=== PATIENT | female | born 1950 | race Two or more races ===

== ENCOUNTER 2020-09-15 08:10 | Outpatient (REF) | payer MEDICARE, MEDICAID, SELFPAY ==
[2020-09-15 09:38] LABS: Alanine Aminotransferase 70 U/L (0-31); Albumin Level 4.3 g/dL (3.5-5.0); Alkaline Phosphatase 84 U/L (39-117); Anion Gap 14 (12-20); Aspartate Amino Transferase 51 U/L (5-31); Bilirubin Total 0.6 mg/dL (0.0-1.0); Blood Urea Nitrogen 13 mg/dL (9-16); Calcium 8.8 mg/dL (8.4-10.2); Carbon Dioxide 30 mmol/L (22-29); Chloride 99 mmol/L (96-108); Cholesterol 161 mg/dL; Estimated Glomerular Filt Rate 58; Glucose Fasting 161 mg/dL (60-99); HDL Cholesterol 39 mg/dL; LDL Cholesterol Calculated 77 mg/dl; Sodium 139 mmol/L (135-145); Triglycerides 225 mg/dL
[2020-09-15 09:59] LABS: Free T4 (Free Thyroxine) 1.02 ng/dL (0.71-1.85); TSH reflex Free T4 5.57 mIU/mL (0.32-4.0)
[2020-09-15 10:50] LABS: Creatinine Urine 149.93 mg/dL; Microalbum/Creatinine Ratio Ur 12.6 ug/mg cr
== END 2020-09-15 08:11 | disposition home or self-care (01) ==
LOC: HO.LAB 08:10
PROVIDERS: PCP Internal Medicine; Visit Provider Internal Medicine
DX: E78.00 Pure hypercholesterolemia, unspecified (principal); E11.9 Type 2 diabetes mellitus without complications; E03.9 Hypothyroidism, unspecified
CPT/HCPCS: 80053; 80061; 82043; 84439; 84443

== ENCOUNTER 2021-01-30 07:47 | Outpatient (REF) | payer MEDICARE, MEDICAID, SELFPAY ==
[2021-01-30 09:20] LABS: Alanine Aminotransferase 42 U/L (0-31); Albumin Level 4.3 g/dL (3.5-5.0); Alkaline Phosphatase 75 U/L (39-117); Anion Gap 13 (12-20); Aspartate Amino Transferase 33 U/L (5-31); Bilirubin Total 0.3 mg/dL (0.0-1.0); Blood Urea Nitrogen 15 mg/dL (9-16); Calcium 9.6 mg/dL (8.4-10.2); Carbon Dioxide 31 mmol/L (22-29); Chloride 101 mmol/L (96-108); Cholesterol 158 mg/dL; Estimated Glomerular Filt Rate 47; Glucose Fasting 152 mg/dL (60-99); HDL Cholesterol 40 mg/dL; LDL Cholesterol Calculated 76 mg/dl; Potassium 4.9 mmol/L (3.3-5.1); Sodium 140 mmol/L (135-145); Total Protein 7.1 g/dL (6.5-8.0); Triglycerides 213 mg/dL
[2021-01-30 09:34] LABS: Creatinine Urine 134.72 mg/dL; Microalbum/Creatinine Ratio Ur 10.3 ug/mg cr
[2021-02-03 07:22] LABS: Vitamin D 25-OH, D2 <4 ng/mL; Vitamin D 25-OH, D3 28 ng/mL; Vitamin D 25-OH, Total 28 ng/mL (30-100)
== END 2021-01-30 07:48 | disposition home or self-care (01) ==
LOC: HO.LAB 07:47
PROVIDERS: PCP Internal Medicine; Visit Provider Internal Medicine
DX: E11.9 Type 2 diabetes mellitus without complications (principal); E78.5 Hyperlipidemia, unspecified; E55.9 Vitamin D deficiency, unspecified
CPT/HCPCS: 36415; 80053; 80061; 82043; 82306

== ENCOUNTER 2021-03-14 09:22 | Outpatient (REF) | payer MEDICARE, MEDICAID, SELFPAY ==
--- NOTE | ~2021-03-14 | US_ITS ---
EXAMINATION: US THYROID CLINICAL INFORMATION: Thyroid nodule. COMPARISON: Thyroid ultrasound 05/21/2019 and 01/22/2019. TECHNIQUE: Linear transducer roman-scale and color Doppler examination with attention to the region of the thyroid. FINDINGS: SIZE: Measurements of the thyroid lobes and nodules are given in sagittal, anteroposterior and transverse dimensions respectively. Right Thyroid Lobe: 3.7 x 1.0 x 1.3 cm, volume 2.5 mL. Previously 4.1 x 1.1 x 1.2 cm, volume 2.9 mL. Parenchyma: The gland echotexture is homogeneous. Thyroid vascularity is normal. Left Thyroid Lobe: 4.0 x 1.0 x 1.0 cm, volume 2.0 mL. Previously 3.9 x 1.1 x 1.2 cm, volume 2.5 mL. Parenchyma: The gland echotexture is homogeneous. Thyroid vascularity is normal. Isthmus: 0.1 cm in maximum AP dimension. Previously 0.2 cm. No focal thyroid nodule is seen. NODES: There are bilateral lymph nodes adjacent to the submandibular glands. There are 2 on the right measure 1.4 and 1.5 cm in transverse dimension and one on the left and measures 1 cm in transverse dimension. These demonstrate normal ultrasound morphology and flow. These were not appreciated on previous exam. ADDITIONAL FINDING: There is a 0.8 x 0.3 x 0.6 cm hyperechoic lesion in the soft tissues inferior to the thyroid gland. This measured 0.7 x 0.4 x 0.6 cm on previous exam and does not appear appreciably changed. US/US thyroid IMPRESSION: Normal-appearing thyroid gland. Stable small hyperechoic lesion in the soft tissues inferior to the left lobe of the thyroid gland from previous exams. Bilateral level 2 cervical lymphadenopathy, right greater than left. ACR TI-RADS RECOMMENDATION REFERENCE: Ultrasound-guided fine-needle aspiration, followup ultrasound, no further follow up. * TR1 (0 point) and TR 2 (2 points): No FNA or follow up * TR3 (3 points): FNA if more than or equal to 2.5 cm in maximum dimension, followup ultrasound in 1, 3 and 5 years if 1.5 to 2.4 cm in maximum dimension. * TR4 (4-6 points): FNA if more than or equal to 1.5 cm in maximum dimension, followup ultrasound in 1, 2, 3 and 5 years if 1 to 1.4 cm in maximum dimension. * TR5 (more than or equal to 7 points): FNA if more than or equal to 1 cm in maximum dimension, followup ultrasound every year for 5 years if 0.5 to 0.9 cm in maximum dimension. * TR3, TR4 or TR5 nodules that are below the size threshold for follow up receive no follow up.
== END 2021-03-14 09:23 | disposition home or self-care (01) ==
LOC: HO.US 09:22
PROVIDERS: PCP Internal Medicine; Visit Provider Internal Medicine Endocrinology, Diabetes & Metabolism
DX: E04.1 Nontoxic single thyroid nodule (principal)
CPT/HCPCS: 76536

== ENCOUNTER 2021-03-23 08:45 | Outpatient (REF) | payer MEDICARE, MEDICAID, SELFPAY ==
--- NOTE | ~2021-03-23 | MM_ITS ---
EXAMINATION: MM SCREENING DIGITAL BREAST TOMOSYNTHESIS, BILATERAL CLINICAL INFORMATION: Screening. Asymptomatic. The lifetime risk of breast cancer based on the Tyrer-Cuzick Model is 4.2%. COMPARISON: Mammography: January 01, 2020 and studies dating back to June 10, 2013 TECHNIQUE: Digital breast tomosynthesis is performed in both the craniocaudal and mediolateral oblique views along with computer-aided detection (CAD). Synthesized 2D images are generated from the tomosynthesis. FINDINGS: There are scattered areas of fibroglandular density (ACR BI-RADS breast composition Category b). There are no new significant masses, abnormal calcifications, or other abnormalities. Stable region of architectural distortion seen within the upper outer aspect of the left breast. MM/MM tomosynthesis screening BI IMPRESSION: There are no significant changes from prior study. ASSESSMENT: BI-RADS 2: Benign RECOMMENDATION: Routine annual mammography screening. This patient's information was entered into a reminder system with a target due date for their next mammogram.
== END 2021-03-23 08:46 | disposition home or self-care (01) ==
LOC: HO.MAMMO 08:45
PROVIDERS: PCP Internal Medicine; Visit Provider Internal Medicine
DX: Z12.31 Encounter for screening mammogram for malignant neoplasm of breast (principal)
CPT/HCPCS: 77063; 77067

== ENCOUNTER → 2021-03-24 07:54 | Outpatient (BNVA) | payer MEDICARE, MEDICAID, SELFPAY | PROVIDERS: PCP Internal Medicine; Visit Provider Internal Medicine Endocrinology, Diabetes & Metabolism | DX: E03.9 Hypothyroidism, unspecified (principal); E04.1 Nontoxic single thyroid nodule | CPT/HCPCS: 99212 ==

== ENCOUNTER 2021-03-24 08:25 | Outpatient (REF) | payer MEDICARE, MEDICAID, SELFPAY ==
[2021-03-24 11:02] LABS: Free T4 (Free Thyroxine) 0.89 ng/dL (0.71-1.85); Thyroid Stimulating Hormone 3.21 uIU/mL (0.32-4.0)
== END 2021-03-24 08:26 | disposition home or self-care (01) ==
LOC: HO.10HDL 08:25
PROVIDERS: Visit Provider Internal Medicine Endocrinology, Diabetes & Metabolism
DX: E03.9 Hypothyroidism, unspecified (principal); E04.1 Nontoxic single thyroid nodule
CPT/HCPCS: 36415; 84439; 84443

== ENCOUNTER 2021-05-11 07:51 | Outpatient (REF) | payer MEDICARE, MEDICAID, SELFPAY ==
[2021-05-11 08:42] LABS: Alanine Aminotransferase 40 U/L (0-31); Albumin Level 4.6 g/dL (3.5-5.0); Alkaline Phosphatase 69 U/L (39-117); Anion Gap 14 (12-20); Aspartate Amino Transferase 33 U/L (5-31); Bilirubin Total 0.7 mg/dL (0.0-1.0); Blood Urea Nitrogen 14 mg/dL (9-16); Calcium 9.8 mg/dL (8.4-10.2); Carbon Dioxide 29 mmol/L (22-29); Chloride 100 mmol/L (96-108); Cholesterol 149 mg/dL; Estimated Glomerular Filt Rate 51; Glucose Fasting 155 mg/dL (60-99); HDL Cholesterol 39 mg/dL; LDL Cholesterol Calculated 77 mg/dl; Potassium 4.1 mmol/L (3.3-5.1); Sodium 139 mmol/L (135-145); Total Protein 7.4 g/dL (6.5-8.0); Triglycerides 167 mg/dL
[2021-05-11 09:04] LABS: Free T4 (Free Thyroxine) 0.87 ng/dL (0.71-1.85); Thyroid Stimulating Hormone 6.39 uIU/mL (0.32-4.0)
[2021-05-11 09:48] LABS: Creatinine Urine 438.85 mg/dL; Microalbum/Creatinine Ratio Ur 14.8 ug/mg cr
[2021-05-15 13:37] LABS: Vitamin D 25-OH, D2 <4 ng/mL; Vitamin D 25-OH, D3 31 ng/mL; Vitamin D 25-OH, Total 31 ng/mL (30-100)
== END 2021-05-11 07:52 | disposition home or self-care (01) ==
LOC: HO.LAB 07:51
PROVIDERS: PCP Internal Medicine; Visit Provider Internal Medicine
DX: E11.65 Type 2 diabetes mellitus with hyperglycemia (principal); E55.9 Vitamin D deficiency, unspecified; R79.89 Other specified abnormal findings of blood chemistry; E78.5 Hyperlipidemia, unspecified
CPT/HCPCS: 36415; 80053; 80061; 82043; 82306; 84439; 84443

== ENCOUNTER 2021-06-14 07:40 | Outpatient (REF) | payer MEDICARE, MEDICAID, SELFPAY ==
[2021-06-15 09:02] LABS: BV Int Neg Control Negative (Negative); BV Int Pos Control Positive (Positive)
== END 2021-06-14 07:41 | disposition home or self-care (01) ==
LOC: HO.LAB 07:40
PROVIDERS: PCP Internal Medicine; Visit Provider Advanced Practice Midwife
DX: Z01.419 Encounter for gynecological examination (general) (routine) without abnormal findings (principal); N89.8 Other specified noninflammatory disorders of vagina
CPT/HCPCS: 87480; 87510; 87660

== ENCOUNTER 2021-06-23 10:47 | Outpatient (REF) | payer MEDICARE, MEDICAID, SELFPAY ==
--- NOTE | ~2021-06-23 | MM_ITS ---
EXAMINATION: BONE DENSITOMETRY CLINICAL INDICATION: Asymptomatic menopausal state. COMPARISON: Baseline BD dated 06/10/2018. TECHNIQUE: Using a [employer] DXA System (software version: 13.1) manufactured by [employer], dual-energy x-ray absorptiometry was performed of the lumbar spine and left hip. The images are of good technical quality. Summary results are attached. FINDINGS: AP SPINE L1-L4: Current: BMD 0.900 g/cm2, Z-score -0.5, T-score -2.3, osteopenia, 0.1% decrease from baseline (<5% change is not significant). Baseline: BMD 0.901 g/cm2. LEFT FEMUR, NECK: Current: BMD 0.786 g/cm2, Z-score 0.0, T-score -1.8, osteopenia. Baseline: BMD 0.773 g/cm2. LEFT FEMUR, TOTAL: Current: BMD 0.975 g/cm2, Z-score 1.3, T-score -0.3, normal, 3.0% increase from baseline (<5% change is not significant). Baseline: BMD 0.947 g/cm2. IDENTIFIED RISK FACTORS: Menopause. HISTORY OF FRACTURE: None listed. MEDICATIONS: Calcium supplements or multivitamin, vitamin D. MM/XR DEXA axial skeleton IMPRESSION: 1. DIAGNOSIS: Osteopenia based on the lowest T-score value of -2.3 in the lumbar spine applying World Health Organization criteria. 2. 10-YEAR FRACTURE RISK PREDICTION, FRAX: Major osteoporotic fracture (clinical spine, forearm, hip or shoulder) 6.3%. Hip fracture 1.1%. 3. Treatment Recommendations: NOF guidelines recommend consideration for treatment in postmenopausal women and men age 50 and older presenting with the following: -A hip or vertebral (clinical or morphometric) fracture. -T-score less than or equal to -2.5 at the femoral neck or spine after appropriate evaluation to exclude secondary causes. -Low bone mass at the hip or spine and a 10-year fracture probability by FRAX of greater than or equal to 3% for hip fracture or greater than or equal to 20% for major osteoporotic fracture based on the [place] adapted WHO algorithm. 4. Other Recommendations: All treatment decisions require clinical judgment and consideration of individual patient factors, including patient preferences, comorbidities, previous drug use, risk factors not captured in the FRAX model (e.g. frailty, falls, vitamin D deficiency, increased bone turnover, interval significant decline in bone density) and possible under or overestimation of fracture risk by FRAX. Additional medical evaluation for secondary cause of low bone mineral density may be appropriate. FUTURE SCAN RECOMMENDATION: People with diagnosed cases of osteoporosis or at high risk for fracture should have regular bone mineral density tests. For patients eligible for Medicare, routine testing is allowed once every 2 years. The testing frequency can be increased to one year for patients who have rapidly progressing disease, those who are receiving or discontinuing medical therapy to restore bone mass, or have additional risk factors.
== END 2021-06-23 10:48 | disposition home or self-care (01) ==
LOC: HO.MAMMO 10:47
PROVIDERS: Visit Provider Nurse Practitioner Family
DX: Z78.0 Asymptomatic menopausal state (principal)
CPT/HCPCS: 77080

== ENCOUNTER 2021-09-14 08:40 | Outpatient (REF) | payer MEDICARE, MEDICAID, SELFPAY ==
[2021-09-14 10:39] LABS: Alanine Aminotransferase 42 U/L (0-31); Albumin Level 4.5 g/dL (3.5-5.0); Alkaline Phosphatase 58 U/L (39-117); Anion Gap 13 (12-20); Aspartate Amino Transferase 32 U/L (5-31); Bilirubin Total 0.4 mg/dL (0.0-1.0); Blood Urea Nitrogen 13 mg/dL (9-16); Calcium 9.5 mg/dL (8.4-10.2); Carbon Dioxide 30 mmol/L (22-29); Chloride 102 mmol/L (96-108); Cholesterol 156 mg/dL; Estimated Glomerular Filt Rate 53; Glucose Fasting 118 mg/dL (60-99); HDL Cholesterol 39 mg/dL; LDL Cholesterol Calculated 79 mg/dl; Potassium 4.4 mmol/L (3.3-5.1); Sodium 141 mmol/L (135-145); Total Protein 7.4 g/dL (6.5-8.0); Triglycerides 190 mg/dL
[2021-09-14 10:51] LABS: Creatinine Urine 119.24 mg/dL; Microalbum/Creatinine Ratio Ur 11.7 ug/mg cr
[2021-09-14 11:01] LABS: Free T4 (Free Thyroxine) 0.89 ng/dL (0.71-1.85); Thyroid Stimulating Hormone 4.71 uIU/mL (0.32-4.0)
[2021-09-15 18:01] LABS: Thyroglobulin Antibodies <1 IU/mL (< or = 1); Thyroid Peroxidase Antibodies <1 IU/mL (<9)
[2021-09-21 14:16] LABS: Vitamin D 25-OH, D2 <4 ng/mL; Vitamin D 25-OH, D3 24 ng/mL; Vitamin D 25-OH, Total 24 ng/mL (30-100)
== END 2021-09-14 08:41 | disposition home or self-care (01) ==
LOC: HO.LAB 08:40
PROVIDERS: Visit Provider Internal Medicine
DX: E11.65 Type 2 diabetes mellitus with hyperglycemia (principal); E03.9 Hypothyroidism, unspecified; E55.9 Vitamin D deficiency, unspecified; E78.5 Hyperlipidemia, unspecified
CPT/HCPCS: 36415; 80053; 80061; 82043; 82306; 84439; 84443; 86376; 86800

== ENCOUNTER 2022-01-19 07:51 | Outpatient (REF) | payer MEDICARE, MEDICAID, SELFPAY ==
[2022-01-19 09:04] LABS: Alanine Aminotransferase 32 U/L (0-31); Albumin Level 4.5 g/dL (3.5-5.0); Alkaline Phosphatase 60 U/L (39-117); Anion Gap 12 (12-20); Aspartate Amino Transferase 25 U/L (5-31); Bilirubin Total 0.6 mg/dL (0.0-1.0); Blood Urea Nitrogen 18 mg/dL (9-16); Calcium 9.6 mg/dL (8.4-10.2); Carbon Dioxide 31 mmol/L (22-29); Chloride 103 mmol/L (96-108); Cholesterol 149 mg/dL; Estimated Glomerular Filt Rate 57; Glucose Fasting 123 mg/dL (60-99); HDL Cholesterol 39 mg/dL; LDL Cholesterol Calculated 73 mg/dl; Potassium 4.5 mmol/L (3.3-5.1); Sodium 141 mmol/L (135-145); Total Protein 7.3 g/dL (6.5-8.0); Triglycerides 189 mg/dL
[2022-01-19 09:25] LABS: Free T4 (Free Thyroxine) 0.94 ng/dL (0.71-1.85); Thyroid Stimulating Hormone 6.09 uIU/mL (0.32-4.0)
[2022-01-19 09:50] LABS: Microalbum/Creatinine Ratio Ur 15.5 ug/mg cr
[2022-01-25 12:26] LABS: Vitamin D 25-OH, D2 <4 ng/mL; Vitamin D 25-OH, D3 22 ng/mL; Vitamin D 25-OH, Total 22 ng/mL (30-100)
== END 2022-01-19 07:52 | disposition home or self-care (01) ==
LOC: HO.LAB 07:51
PROVIDERS: PCP Internal Medicine; Visit Provider Internal Medicine
DX: R79.89 Other specified abnormal findings of blood chemistry (principal); E11.65 Type 2 diabetes mellitus with hyperglycemia; E55.9 Vitamin D deficiency, unspecified; E78.5 Hyperlipidemia, unspecified
CPT/HCPCS: 36415; 80053; 80061; 82043; 82306; 84439; 84443

== ENCOUNTER 2022-03-27 09:27 | Outpatient (REF) | payer MEDICARE, MEDICAID, SELFPAY ==
--- NOTE | ~2022-03-27 | MM_ITS ---
EXAMINATION: MM SCREENING DIGITAL BREAST TOMOSYNTHESIS, BILATERAL CLINICAL INFORMATION: Screening. Asymptomatic. The lifetime risk of breast cancer based on the Tyrer-Cuzick Model is 4%. COMPARISON: Mammography: 03/23/2021, 01/01/2020, 11/12/2018, 10/24/2017 TECHNIQUE: Digital breast tomosynthesis is performed in both the craniocaudal and mediolateral oblique views along with computer-aided detection (CAD). Synthesized 2D images are generated from the tomosynthesis. FINDINGS: There are scattered areas of fibroglandular density (ACR BI-RADS breast composition Category b). There are no significant masses, abnormal calcifications, or other abnormalities. Parenchymal pattern is similar to prior studies. Small asymmetry posterior central 9:00 right breast is stable. There is no developing density or architectural abnormality in either breast. The axilla are unremarkable. MM/MM tomosynthesis screening BI IMPRESSION: No mammographic evidence of malignancy. ASSESSMENT: BI-RADS 2: Benign RECOMMENDATION: Routine annual mammography screening. This patient's information was entered into a reminder system with a target due date for their next mammogram.
== END 2022-03-27 09:28 | disposition home or self-care (01) ==
LOC: HO.MAMMO 09:27
PROVIDERS: PCP Internal Medicine; Visit Provider Internal Medicine
DX: Z12.31 Encounter for screening mammogram for malignant neoplasm of breast (principal)
CPT/HCPCS: 77063; 77067

== ENCOUNTER 2022-04-30 07:48 | Outpatient (REF) | payer MEDICARE, MEDICAID, SELFPAY ==
[2022-04-30 09:19] LABS: Free T4 (Free Thyroxine) 0.87 ng/dL (0.71-1.85); Thyroid Stimulating Hormone 3.38 uIU/mL (0.32-4.0)
== END 2022-04-30 07:49 | disposition home or self-care (01) ==
LOC: HO.LAB 07:48
PROVIDERS: PCP Internal Medicine; Visit Provider Internal Medicine
DX: E03.9 Hypothyroidism, unspecified (principal)
CPT/HCPCS: 36415; 84439; 84443

== ENCOUNTER 2022-09-17 07:58 | Outpatient (REF) | payer MEDICARE, MEDICAID, SELFPAY ==
[2022-09-17 09:01] LABS: Alanine Aminotransferase 33 U/L (0-31); Albumin Level 4.6 g/dL (3.5-5.0); Alkaline Phosphatase 65 U/L (39-117); Anion Gap 18 (12-20); Aspartate Amino Transferase 24 U/L (5-31); Bilirubin Total 0.5 mg/dL (0.0-1.0); Blood Urea Nitrogen 12 mg/dL (9-16); Calcium 9.2 mg/dL (8.4-10.2); Carbon Dioxide 26 mmol/L (22-29); Chloride 98 mmol/L (96-108); Cholesterol 165 mg/dL; Estimated Glomerular Filt Rate 58; Glucose Fasting 150 mg/dL (60-99); HDL Cholesterol 43 mg/dL; LDL Cholesterol Calculated 91 mg/dl; Potassium 4.3 mmol/L (3.3-5.1); Sodium 138 mmol/L (135-145); Total Protein 7.5 g/dL (6.5-8.0); Triglycerides 157 mg/dL
[2022-09-17 09:23] LABS: Thyroid Stimulating Hormone 8.24 uIU/mL (0.32-4.0); Vitamin D 25-OH Total 25.5 ng/mL (>30)
[2022-09-17 10:06] LABS: Microalbum/Creatinine Ratio Ur 19.9 ug/mg cr
== END 2022-09-17 07:59 | disposition home or self-care (01) ==
LOC: HO.LAB 07:58
PROVIDERS: PCP Internal Medicine; Visit Provider Internal Medicine
DX: E11.65 Type 2 diabetes mellitus with hyperglycemia (principal); E55.9 Vitamin D deficiency, unspecified; E03.9 Hypothyroidism, unspecified; E78.5 Hyperlipidemia, unspecified
CPT/HCPCS: 36415; 80053; 80061; 82043; 82306; 84443

== ENCOUNTER 2023-01-10 08:01 | Outpatient (REF) | payer MEDICARE, MEDICAID, SELFPAY ==
[2023-01-10 09:30] LABS: Alanine Aminotransferase 30 U/L (0-31); Albumin Level 4.5 g/dL (3.5-5.0); Alkaline Phosphatase 58 U/L (39-117); Anion Gap 16 (12-20); Aspartate Amino Transferase 23 U/L (5-31); Bilirubin Total 0.6 mg/dL (0.0-1.0); Blood Urea Nitrogen 17 mg/dL (9-16); Calcium 9.3 mg/dL (8.4-10.2); Carbon Dioxide 27 mmol/L (22-29); Chloride 104 mmol/L (96-108); Cholesterol 165 mg/dL; Estimated Glomerular Filt Rate 55; Glucose Fasting 134 mg/dL (60-99); HDL Cholesterol 41 mg/dL; LDL Cholesterol Calculated 82 mg/dl; Potassium 4.4 mmol/L (3.3-5.1); Sodium 143 mmol/L (135-145); Total Protein 7.4 g/dL (6.5-8.0); Triglycerides 211 mg/dL
[2023-01-10 10:02] LABS: Free T4 (Free Thyroxine) 0.82 ng/dL (0.71-1.85); Thyroid Stimulating Hormone 4.57 uIU/mL (0.32-4.0); Vitamin D 25-OH Total 22.8 ng/mL (>30)
[2023-01-10 11:11] LABS: Microalbum/Creatinine Ratio Ur 30.4 ug/mg cr
[2023-01-11 18:09] LABS: Thyroglobulin Antibodies <1 IU/mL (< or = 1); Thyroid Peroxidase Antibodies <1 IU/mL (<9)
== END 2023-01-10 08:02 | disposition home or self-care (01) ==
LOC: HO.LAB 08:01
PROVIDERS: PCP Internal Medicine; Visit Provider Internal Medicine
DX: E11.65 Type 2 diabetes mellitus with hyperglycemia (principal); E03.9 Hypothyroidism, unspecified; E55.9 Vitamin D deficiency, unspecified; E78.5 Hyperlipidemia, unspecified
CPT/HCPCS: 36415; 80053; 80061; 82043; 82306; 84439; 84443; 86376; 86800

== ENCOUNTER 2023-04-12 08:03 | Outpatient (REF) | payer MEDICARE, MEDICAID, SELFPAY ==
--- NOTE | ~2023-04-12 | MM_ITS ---
EXAMINATION: MM SCREENING DIGITAL BREAST TOMOSYNTHESIS, BILATERAL CLINICAL INFORMATION: Screening. Asymptomatic. The lifetime risk of breast cancer based on the Tyrer-Cuzick Model is 4%. COMPARISON: Mammography: 03/27/2022, 03/23/2021, 01/01/2020 TECHNIQUE: Digital breast tomosynthesis is performed in both the craniocaudal and mediolateral oblique views along with computer-aided detection (CAD). Synthesized 2D images are generated from the tomosynthesis. Additional right CC view is provided. FINDINGS: There are scattered areas of fibroglandular density (ACR BI-RADS breast composition Category b). There are no significant masses, abnormal calcifications, or other abnormalities. Parenchymal pattern is similar to prior studies. There is no developing density or architectural abnormality. Incidental dermal calcifications posterior 7:00 left breast. The axilla and skin contours are unremarkable. No significant changes from prior studies. MM/MM tomosynthesis screening BI IMPRESSION: No mammographic evidence of malignancy. ASSESSMENT: BI-RADS 1: Negative RECOMMENDATION: Routine annual mammography screening. This patient's information was entered into a reminder system with a target due date for their next mammogram.
== END 2023-04-12 08:04 | disposition home or self-care (01) ==
LOC: HO.MAMMO 08:03
PROVIDERS: PCP Internal Medicine; Visit Provider Internal Medicine
DX: Z12.31 Encounter for screening mammogram for malignant neoplasm of breast (principal)
CPT/HCPCS: 77063; 77067

== ENCOUNTER 2023-05-20 07:55 | Outpatient (REF) | payer MEDICARE, MEDICAID, SELFPAY ==
[2023-05-22 18:18] LABS: Thyroglobulin Antibodies <1 IU/mL (< or = 1)
[2023-05-23 19:39] LABS: Thyroid Peroxidase Antibodies <1 IU/mL (<9)
== END 2023-05-20 07:56 | disposition home or self-care (01) ==
LOC: HO.LAB 07:55
PROVIDERS: PCP Internal Medicine; Visit Provider Internal Medicine
DX: E11.65 Type 2 diabetes mellitus with hyperglycemia (principal); E03.9 Hypothyroidism, unspecified; E78.5 Hyperlipidemia, unspecified; E55.9 Vitamin D deficiency, unspecified
CPT/HCPCS: 36415; 80053; 80061; 82043; 82306; 84439; 84443; 86376; 86800

== ENCOUNTER 2023-06-04 08:00 | Outpatient (AMB) | payer MEDICARE, MEDICAID, SELFPAY ==
--- NOTE | 2023-06-04 08:05 | A.OFFPC_ITS ---
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: No Accompanied by: Spouse Allergies cetirizine Allergy (Intermediate, Verified 06/04/23 08:17) inadequate response montelukast Allergy (Intermediate, Verified 06/04/23 08:17) inadequate response Penicillins [PENICILLINS] Allergy (Intermediate, Verified 06/04/23 08:17) ITCHY HIVES levothyroxine Adverse Reaction (Intermediate, Verified 06/04/23 08:17) dizziness, weakness Tussin (?) Adverse Reaction (Intermediate, Uncoded 06/04/23 08:17) rash,urticaria Medication List - Last Reconciled 06/04/23 by Keke Ivy MD blood sugar diagnostic (FreeStyle Lite Strips) Use 1 test strip once a day calcium carbonate 600 mg PO BID 90 days cholecalciferol (vitamin D3) 25 mcg PO DAILY 90 days diclofenac sodium 1% 2 grams topical QID PRN 30 days fluoxetine 20 mg PO DAILY 90 days fluticasone propionate 0.05% 1 appl topical DAILY 30 days metformin 850 mg PO BID 90 days pravastatin 40 mg PO BEDTIME 90 days risperidone 4 mg PO DAILY 90 days trazodone 200 mg (2 x 100 mg) PO BEDTIME Tobacco use date assessed: 01/24/23 Fall risk assessment: No Falls in past year Last assessed Fall Risk: 06/04/23 Dental Screening Dental Screen Date: 06/04/23 Did you have a dental visit in the last 12 months?: Yes Did you have a dental problem in the last 6 months where you did not have access to dental care?: No Was dental information given to patient?: Patient has dentist HPI HPI Comments History of Present Illness Details This is a 72-year-old female with diabetes mellitus type 2, pure hypercholesterolemia, mild recurrent major depression, hypothyroid and low vitamin-D that comes today accompanied by complaining of some occasional cognitive impairment and I will refer her to Neurology. A1c within goal. LDL within goal. Depression stable with SSRIs. TSH is elevated and I will restart her on Synthroid. Levothyroxine cause dizziness and weakness and this is why I will try branded Synthroid. Vitamin-D normal on supplements. No chest pain or shortness of breath. [facility] Medical History (Updated 06/04/23 @ 08:26 by Keke Ivy MD) Depression Diabetes mellitus Elevated TSH Hypovitaminosis D Insomnia Mild recurrent major depression Pure hypercholesterolemia Subclinical hypothyroidism Thyroid nodule Surgical History History of colonoscopy History of hemorrhoidectomy History of left breast biopsy History of removal of cyst Family History Father Myocardial infarction Mother No problems noted. Family/Other FH: mental illness Mental health disorder Social History Housing: House Alcohol intake: never Patient Tobacco Use Status: Never used Tobacco e-Cigarette/Vaping Use: Never Used Second Hand Smoke Exposure: No service: No Current occupational status: unemployed Cognitive needs: No Hearing needs: No Vision needs: No Questionnaire Thrive Questionnaire Date Thrive assessed: 01/24/23 CARRIE-7 AMB Questionnaire CARRIE-7 Date CARRIE - 7 assessed: 01/24/23 Source: Developed by Drs. Dae Forman, Rin Mallory, Anuj Macdonald and colleagues, with an educational andrzej from [employer]. Review of Systems Const All systems reviewed & are unremarkable except as noted in HPI and below Eyes Reports no additional complaints, Denies change in vision and Denies other visual disturbances Card Denies chest pain at rest, Denies chest pain with activity, Denies edema, Denies irregular heart rhythm, Denies claudication, Denies dyspnea, Denies dyspnea on exertion, Denies orthopnea, Denies paroxysmal nocturnal dyspnea and Denies slow heart rate Resp Denies cough, Denies dyspnea and Denies dyspnea on exertion GI Denies abdominal pain, Denies change in bowel habits, Denies excessive flatus, Denies nausea and Denies vomiting Denies urinary incontinence, Denies urinary hesitancy and Denies urinary urgency Musc Denies abnormal gait, Denies atrophy, Denies deformity and Denies limited range of motion Skin/Breast Denies bleeding lesions, Denies changing lesions and Denies rash Neuro Denies abnormal gait and Denies lack of coordination Physical exam (Primary Care) Vital Signs: Last Vital Signs BP 162/90 H 06/04/23 08:09 BMI result Body Mass Index 24.6 Tobacco/Smoking Status: Tobacco use Status Tobacco use date assessed 01/24/23 06/04/23 08:07 Patient Tobacco Use Status Never used Tobacco 06/04/23 08:07 e-Cigarette/Vaping Use Never Used 06/04/23 08:07 Thrive Assessment: Date of Thrive Assessment Date Thrive assessed 01/24/23 06/04/23 08:07 Eyes General: appearance normal, both eyes and all related structures Eyelids: Yes eyelids normal Conjunctivae: conjunctivae normal Neck Neck: Yes normal visual inspection and Yes supple Resp Effort & Inspection: normal respiratory effort Auscultation: clear to auscultation bilaterally Cardio Jugular venous distension: no JVD Rate: regular rate Rhythm: regular rhythm Heart sounds: S1 normal heart sound present and S2 normal heart sound present Extrem General: Yes full ROM Results AMB Hemoglobin A1c AMB Hemoglobin A1c 5.8 % Last Edit by KATHY Weiss on 06/04/23 08:1 6 Results Reviewed Results Reviewed: Laboratory Last Values Hgb A1c (Clinic) 5.8 % (4.0-6.0) 06/04/23 08:04 Assessment and Plan Assessment & Plan (1) Mild recurrent major depression: Code(s): F33.0 - Major depressive disorder, recurrent, mild Plan: Continue fluoxetine. (2) Diabetes mellitus: Code(s): E11.9 - Type 2 diabetes mellitus without complications Qualifiers: Diabetes mellitus type: type 2 Diabetes mellitus joint terminal attack controller insulin use: without joint terminal attack controller use Diabetes mellitus complication status: with hyperglycemia Qualified Code(s): E11.65 - Type 2 diabetes mellitus with hyperglycemia Plan: Continue metformin. A1c goal is equal or less than 7%. (3) Pure hypercholesterolemia: Code(s): E78.00 - Pure hypercholesterolemia, unspecified Plan: Continue statins. LDL goal is less than 70. (4) Hypovitaminosis D: Code(s): E55.9 - Vitamin D deficiency, unspecified Plan: Continue vitamin-D supplement (5) Hypothyroid: Code(s): E03.9 - Hypothyroidism, unspecified Plan: Start Synthroid 25 mcg once a day. Repeat TSH in 6 weeks. (6) Cognitive impairment: Code(s): R41.89 - Other symptoms and signs involving cognitive functions and awareness Plan: Referred to neurology. Orders: Orders Thyroid Stimulating Hormone 6 Weeks E03.9 - Hypothyroidism, unspecified Vitamin D 25-OH Total 4 Months E55.9 - Vitamin D deficiency, unspecified Lipid Panel 4 Months E78.5 - Hyperlipidemia, unspecified Microalbumin, Random (w Creat) 4 Months E11.9 - Type 2 diabetes mellitus without complications Vitamin B12 and Folate 4 Months E53.8 - Deficiency of other specified B group vitamins Comprehensive Bostic. Panel Fast 4 Months E11.65 - Type 2 diabetes mellitus with hyperglycemia Thyroid Stimulating Hormone 4 Months R79.89 - Other specified abnormal findings of blood chemistry Free T4 (Free Thyroxine) 4 Months R79.89 - Other specified abnormal findings of blood chemistry AMB Hemoglobin A1c Today E11.9 - Type 2 diabetes mellitus without complications Referrals Neurology Referral R41.89 - Other symptoms and signs involving cognitive functions and awareness Medications: New Synthroid (levothyroxine) 25 mcg PO DAILY 90 tabs 1RF 90 days NS E03.9 - Hypothyroidism, unspecified Coding Level of Care Code Est Pt Level 4 (04411) Diagnoses Mild recurrent major depression F33.0 Diabetes mellitus E11.65 Diabetes mellitus type: type 2 Diabetes mellitus usp insulin use: without joint terminal attack controller use Diabetes mellitus complication status: with hyperglycemia Pure hypercholesterolemia E78.00 Hypovitaminosis D E55.9 Hypothyroid E03.9 Cognitive impairment R41.89 Time Spent (min) 24
[2023-06-04 08:09] VITALS: BP 162/90; BMI 24.6
[2023-06-04 08:49] VITALS: BP 140/90
== END 2023-06-04 08:34 | disposition home or self-care (01) ==
PROVIDERS: Visit Provider Internal Medicine
DX: E11.65 Type 2 diabetes mellitus with hyperglycemia (principal); F33.0 Major depressive disorder, recurrent, mild; E55.9 Vitamin D deficiency, unspecified; E03.9 Hypothyroidism, unspecified; E78.00 Pure hypercholesterolemia, unspecified; R41.89 Other symptoms and signs involving cognitive functions and awareness
CPT/HCPCS: 83036; 99214

== ENCOUNTER 2023-09-16 07:51 | Outpatient (REF) | payer MEDICARE, SELFPAY ==
[2023-09-16 09:38] LABS: Alanine Aminotransferase 20 U/L (0-31); Albumin Level 4.2 g/dL (3.5-5.0); Alkaline Phosphatase 57 U/L (39-117); Anion Gap 15 (12-20); Aspartate Amino Transferase 19 U/L (5-31); Bilirubin Total 0.4 mg/dL (0.0-1.0); Blood Urea Nitrogen 16 mg/dL (9-16); Calcium 10.1 mg/dL (8.4-10.2); Carbon Dioxide 28 mmol/L (22-29); Chloride 102 mmol/L (96-108); Cholesterol 158 mg/dL (<200); Estimated Glomerular Filt Rate 52; Glucose Fasting 119 mg/dL (60-99); HDL Cholesterol 37 mg/dL (>40); LDL Cholesterol Calculated 71 mg/dL (<100); Potassium 4.7 mmol/L (3.3-5.1); Sodium 140 mmol/L (135-145); Total Protein 7.3 g/dL (6.5-8.0); Triglycerides 252 mg/dL (<150)
[2023-09-16 09:57] LABS: Free T4 (Free Thyroxine) 0.84 ng/dL (0.71-1.85); Thyroid Stimulating Hormone 2.37 uIU/mL (0.32-4.0)
[2023-09-16 09:58] LABS: Vitamin D 25-OH Total 23.5 ng/mL (>30)
[2023-09-16 10:09] LABS: Folate 6.6 ng/mL (> or = 4.0); Vitamin B12 316 pg/mL (200-900)
[2023-09-16 11:07] LABS: Creatinine Urine 121.93 mg/dL; Microalbum/Creatinine Ratio Ur 10.6 ug/mg cr (<30)
== END 2023-09-16 07:52 | disposition home or self-care (01) ==
LOC: HO.LAB 07:51
PROVIDERS: PCP Internal Medicine; Visit Provider Internal Medicine
DX: E11.65 Type 2 diabetes mellitus with hyperglycemia (principal); E53.8 Deficiency of other specified B group vitamins; E55.9 Vitamin D deficiency, unspecified; E78.5 Hyperlipidemia, unspecified; R79.89 Other specified abnormal findings of blood chemistry
CPT/HCPCS: 36415; 80053; 80061; 82043; 82306; 82570; 82607; 82746; 84439; 84443

== ENCOUNTER 2023-10-02 08:44 | Outpatient (AMB) | payer MEDICARE, MEDICAID, SELFPAY ==
--- NOTE | 2023-10-02 09:01 | MHC.PC.OV ---
Vital Signs 10/02/23 09:02 Height 5 ft 1 in Weight 131 lb BMI 24.7 BP 126/80 Blood Pressure Location Lt brachial Position Sitting Intake Visit Reasons: Annual PE Intake Note: Patient here for a physical exam Sheet Heater Required: No Accompanied by: Spouse Allergies cetirizine Allergy (Intermediate, Verified 10/02/23 09:18) inadequate response montelukast Allergy (Intermediate, Verified 10/02/23 09:18) inadequate response Penicillins [PENICILLINS] Allergy (Intermediate, Verified 10/02/23 09:18) ITCHY HIVES levothyroxine Adverse Reaction (Intermediate, Verified 10/02/23 09:18) dizziness, weakness Tussin (?) Adverse Reaction (Intermediate, Uncoded 10/02/23 09:18) rash,urticaria Medication List - Last Reconciled 10/02/23 by Keke Ivy MD blood sugar diagnostic (FreeStyle Lite Strips) Use 1 test strip once a day calcium carbonate 600 mg PO BID 90 days cholecalciferol (vitamin D3) 25 mcg PO DAILY 90 days diclofenac sodium 1% 2 grams topical QID PRN 30 days fluoxetine 20 mg PO DAILY 90 days fluticasone propionate 0.05% 1 appl topical DAILY 30 days metformin 850 mg PO BID 90 days pravastatin 40 mg PO BEDTIME 90 days risperidone 4 mg PO DAILY 90 days Synthroid (levothyroxine) 25 mcg PO DAILY 90 days NS trazodone 200 mg (2 x 100 mg) PO BEDTIME Tobacco use date assessed: 01/24/23 Fall risk assessment: No Falls in past year Last assessed Fall Risk: 10/02/23 Dental Screening Dental Screen Date: 10/02/23 Did you have a dental visit in the last 12 months?: No Did you have a dental problem in the last 6 months where you did not have access to dental care?: No Was dental information given to patient?: Patient has dentist HPI HPI Comments History of Present Illness Details This is a 73-year-old female with diabetes mellitus type 2 and mild recurrent major depression that comes today accompanied by for her physical exam. A1c within goal. Depression stable with SSRIs. Last mammogram was 2022 and was normal. Last colonoscopy was 2017 and was normal and next colonoscopy should be 2027. No need for Pap smears due to age. Last bone density was 2020 showing osteopenia and this will be repeated. Labs were discussed. LDL within goal. Blood pressure stable. No acute complaints. [facility] Medical History (Updated 06/04/23 @ 08:26 by Keke Ivy MD) Mild recurrent major depression Thyroid nodule Subclinical hypothyroidism Elevated TSH Diabetes mellitus Insomnia Depression Pure hypercholesterolemia Hypovitaminosis D Surgical History History of colonoscopy History of removal of cyst History of left breast biopsy History of hemorrhoidectomy Family History Father Myocardial infarction Mother No problems noted. Family/Other FH: mental illness Mental health disorder Housing: House Alcohol intake: never Patient Tobacco Use Status: Never used Tobacco e-Cigarette/Vaping Use: Never Used Second Hand Smoke Exposure: No service: No Current occupational status: unemployed Cognitive needs: No Hearing needs: No Vision needs: No Questionnaire Thrive Questionnaire Date Thrive assessed: 01/24/23 CARRIE-7 AMB Questionnaire CARRIE-7 Date CARRIE - 7 assessed: 01/24/23 Source: Developed by Drs. Dae Forman, Rin Mallory, Anuj Macdonald and colleagues, with an educational andrzej from [employer]. Review of Systems Const All systems reviewed & are unremarkable except as noted in HPI and below Eyes Reports no additional complaints, Denies change in vision and Denies other visual disturbances Card Denies chest pain at rest, Denies chest pain with activity, Denies edema, Denies irregular heart rhythm, Denies claudication, Denies dyspnea, Denies dyspnea on exertion, Denies orthopnea, Denies paroxysmal nocturnal dyspnea and Denies slow heart rate Resp Denies cough, Denies dyspnea and Denies dyspnea on exertion GI Denies abdominal pain, Denies change in bowel habits, Denies excessive flatus, Denies nausea and Denies vomiting Denies urinary incontinence, Denies urinary hesitancy and Denies urinary urgency Musc Denies abnormal gait, Denies atrophy, Denies deformity and Denies limited range of motion Skin/Breast Denies bleeding lesions, Denies changing lesions and Denies rash Neuro Denies abnormal gait, Denies behavioral changes, Denies confusion and Denies lack of coordination Psych Denies behavioral changes and Denies confusion Physical exam (Primary Care) Vital Signs: Last Vital Signs BP 126/80 10/02/23 09:02 BMI result Body Mass Index 24.7 Tobacco/Smoking Status: Tobacco use Status Tobacco use date assessed 01/24/23 10/02/23 09:05 Patient Tobacco Use Status Never used Tobacco 10/02/23 09:05 e-Cigarette/Vaping Use Never Used 10/02/23 09:05 Thrive Assessment: Date of Thrive Assessment Date Thrive assessed 01/24/23 10/02/23 09:05 Const General: No confusion Orientation/consciousness: patient oriented x3 and No confusion HENMT Head: Yes normal to inspection, Yes normocephalic and Yes atraumatic Ears: external ears normal Eyes General: appearance normal, both eyes and all related structures Eyelids: Yes eyelids normal Conjunctivae: conjunctivae normal Neck Neck: Yes normal visual inspection and Yes supple Resp Effort & Inspection: normal respiratory effort Auscultation: clear to auscultation bilaterally Cardio Jugular venous distension: no JVD Rate: regular rate Rhythm: regular rhythm Heart sounds: S1 normal heart sound present and S2 normal heart sound present GI Inspection: Yes normal to inspection Palpation (GI): Soft to palpation and nontender Auscultation: normal bowel sounds Skin General skin exam: no rashes or lesions noted Neuro General: patient oriented x3, no focal motor deficits and No confusion Extrem General: Yes full ROM Psych Appearance: grossly normal Office Procedures Flu Questionnaire Does the patient have a severe egg allergy?: No Results AMB Hemoglobin A1c AMB Hemoglobin A1c 6.1 % Last Edit by KATHY Weiss on 10/02/23 09:09 Immunizations flu vacc [id number] 6mos up(PF) 60 mcg(15 mcgx4)/0.5 mL IM syringe Performing Provider: Keke Ivy MD [facility] Documented (not given) by: KATHY Weiss on 10/02/23 09:06 Reason Not Given: Received Previously Results Reviewed Results Reviewed: Laboratory Last Values Hgb A1c (Clinic) 6.1 % (4.0-6.0) H 10/02/23 09:06 Assessment and Plan Assessment & Plan (1) Physical exam: Code(s): Z00.00 - Encounter for general adult medical examination without abnormal findings Plan: Repeat in a year. (2) Diabetes mellitus: Code(s): E11.9 - Type 2 diabetes mellitus without complications Qualifiers: Diabetes mellitus type: type 2 Diabetes mellitus care home insulin use: without terminal manager use Diabetes mellitus complication status: with hyperglycemia Qualified Code(s): E11.65 - Type 2 diabetes mellitus with hyperglycemia Plan: Continue metformin. A1c goal is equal or less than 7%. (3) Mild recurrent major depression: Code(s): F33.0 - Major depressive disorder, recurrent, mild Plan: Continue fluoxetine. Orders: Orders Vitamin D 25-OH Total 4 Months E55.9 - Vitamin D deficiency, unspecified Microalbumin, Random (w Creat) 4 Months E11.9 - Type 2 diabetes mellitus without complications AMB Hemoglobin A1c Today E11.9 - Type 2 diabetes mellitus without complications Influenza [id number] Immunization Today Z23 - Encounter for immunization XR DEXA axial skeleton Today N95.9 - Unspecified menopausal and perimenopausal disorder Lipid Panel 4 Months E78.5 - Hyperlipidemia, unspecified Comprehensive [place]. Panel Fast 4 Months E11.9 - Type 2 diabetes mellitus without complications Thyroid Stimulating Hormone 4 Months E03.9 - Hypothyroidism, unspecified Medications: Refilled diclofenac sodium 1% apply to single elbow, wrist or hand; for hand includes palm/fingers/back of hand 2 grams topical QID PRN 100 grams 0RF foot pain 30 days Coding Level of Care Code Est Pt Prev Care >65y(48504) Diagnoses Physical exam Z00.00 Type 2 diabetes mellitus with hyperglycemia, without long-term current use of insulin E11.65 Diabetes mellitus type: type 2 Diabetes mellitus terminal manager insulin use: without care home use Diabetes mellitus complication status: with hyperglycemia Mild recurrent major depression F33.0 Time Spent (min) 33
[2023-10-02 09:02] VITALS: BP 126/80; BMI 24.7
== END 2023-10-02 09:30 | disposition home or self-care (01) ==
PROVIDERS: Visit Provider Internal Medicine
DX: Z00.00 Encounter for general adult medical examination without abnormal findings (principal); E11.65 Type 2 diabetes mellitus with hyperglycemia; F33.0 Major depressive disorder, recurrent, mild; E11.9 Type 2 diabetes mellitus without complications
CPT/HCPCS: 83036; 99397

== ENCOUNTER 2023-10-29 12:50 | Outpatient (AMB) | payer MEDICARE, MEDICAID, SELFPAY ==
[2023-10-29 12:57] VITALS: BP 130/80; PULSE 111; O2SAT 95; BMI 24.6
--- NOTE | 2023-10-29 12:57 | A.OFFVIS_ITS ---
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: Other S&S involving Cognitive & Awareness Accompanied by: Son Allergies cetirizine Allergy (Intermediate, Verified 10/29/23 12:58) inadequate response montelukast Allergy (Intermediate, Verified 10/29/23 12:58) inadequate response Penicillins [PENICILLINS] Allergy (Intermediate, Verified 10/29/23 12:58) ITCHY HIVES levothyroxine Adverse Reaction (Intermediate, Verified 10/29/23 12:58) dizziness, weakness Tussin (?) Adverse Reaction (Intermediate, Uncoded 10/29/23 12:58) rash,urticaria Medication List - Last Reconciled 10/29/23 by Crystal Parker MD blood sugar diagnostic (FreeStyle Lite Strips) Use 1 test strip once a day calcium carbonate 600 mg PO BID 90 days diclofenac sodium 1% 2 grams topical QID PRN 30 days fluoxetine 20 mg PO DAILY 90 days fluticasone propionate 0.05% 1 appl topical DAILY 30 days metformin 850 mg PO BID 90 days pravastatin 40 mg PO BEDTIME 90 days risperidone 4 mg PO DAILY 90 days Synthroid (levothyroxine) 25 mcg PO DAILY 90 days NS trazodone 200 mg (2 x 100 mg) PO BEDTIME HPI HPI Comments History of Present Illness Details 73y/o [place] female comes for evaluat ion of cognitive impairment. Her noticed about 5 months ago that she was having memory issues.SHe needs constant reminding for her daily activities like cooking , laundry etc. she knows how to do her laundry but forgets to do it. she needs reminders for medications. she misplaces things in her house.she forgets conversations and difficulty with short term recall. she is on medications for depression. No family h/o dementia , no head injury. she has chronic sleep issues.she takes medication to help her sleep but sometimes it does not help.she snores and has fatigue during daytime [facility] Medical History (Updated 10/29/23 @ 13:45 by Crystal Parker MD) Snoring Mild recurrent major depression Thyroid nodule Subclinical hypothyroidism Elevated TSH Diabetes mellitus Insomnia Depression Pure hypercholesterolemia Hypovitaminosis D Surgical History History of colonoscopy History of removal of cyst History of left breast biopsy History of hemorrhoidectomy Family History Father Myocardial infarction Mother No problems noted. Family/Other FH: mental illness Mental health disorder Social History Housing: House Alcohol intake: never Patient Tobacco Use Status: Never used Tobacco e-Cigarette/Vaping Use: Never Used Second Hand Smoke Exposure: No service: No Current occupational status: unemployed Cognitive needs: No Hearing needs: No Vision needs: No Physical Exam Vital Signs: Last Vital Signs Pulse 111 H 10/29/23 12:57 BP 130/80 10/29/23 12:57 Pulse Ox 95 10/29/23 12:57 Oxygen Delivery Method Room Air 10/29/23 12:57 BMI result Body Mass Index 24.6 Const General: cooperative, healthy appearing and comfortable Nutritional Appearance: average body habitus Orientation/consciousness: patient oriented x3 Eyes Pupils: Equal, round and reactive pupils present Neuro Other: Mallampatti grade 4 General: patient oriented x3, No gait normal, tone normal, moves all extremities and no focal motor deficits Cranial nerves: Yes Facial sensation intact/muscles of mastication intact, Yes Equal, round and reactive pupils present, Yes Bilaterally intact EOM present, Yes Nystagmus not present, Yes Normal facial strength present, Yes Midline tongue present and Yes Symmetric palate elevation present Cognition (Neuro): normal cognition Gait exam (Neuro): Normal gait present Deep tendon reflexes (DTR's): Right triceps reflex intensity grade: 2+, Left triceps reflex intensity grade: 2+, Rt Biceps (C5, C6): 2+, Left biceps reflex intensity grade: 2+, Right brachioradialis reflex intensity grade: 2+, Left brachioradialis reflex intensity grade: 2+, Right patellar reflex intensity grade: 2+ and Left patellar reflex intensity grade: 2+ Coordination: [id number] test normal Orientation What is the (year) (season) (date) (day) (month)?: year, season, date, day and month Where are we (state) (county) (town or city) (hospital) (floor)?: state, county, town or city, hospital/clinic and floor Registration Name of 3 unrelated objects clearly and slowly, then ask patient to repeat all 3 of them. (1st repeat determines score. Make sure they can repeat all three): object 1, object 2 and object 3 Attention & Calculation (CHOOSE ONE) Spell WORLD backwards (DLROW): 5 letters Recall Ask patient to repeat the 3 items from question #3.: object 1 and object 3 Language Show patient a wristwatch & ask what it is. Repeat for pencil.: watch and pencil Ask the patient to repeat the phrase 'No ifs, ands, or buts' after you.: correct Ask the patient to 'take a piece of paper with their right hand' 'fold paper in half' 'place paper on floor': take paper in right hand and fold paper in half Print the sentence 'CLOSE YOUR EYES' on a piece. If patient actually closes eyes then score.: followed written direction Give patient a blank piece of paper & ask to write a sentence. Score if it contains a noun & verb.: sentence contains subject and verb Ask patient to copy figure of intersecting pentagons exactly. Score if all 10 angles & 2 intersects are included.: all 10 angles present & 2 are intersected Score Score: 28 Assessment & Plan Assessment & Plan (1) Cognitive impairment: Comment: mild . she did well on testing Code(s): R41.89 - Other symptoms and signs involving cognitive functions and awareness Plan I will evaluate her with MRI brain labs and sleep study. suggested to increase cognitive activities. Orders: Orders Complete Blood Count Auto Diff Today R41.89 - Other symptoms and signs involving cognitive functions and awareness RT home sleep study Today R06.83 - Snoring, R41.89 - Other symptoms and signs involving cognitive functions and awareness MR brain wo con w neuroquant Today R41.89 - Other symptoms and signs involving cognitive functions and awareness TSH reflex Free T4 Today R41.89 - Other symptoms and signs involving cognitive functions and awareness Vitamin B12 and Folate Today R41.89 - Other symptoms and signs involving cognitive functions and awareness Vitamin D 25-OH (D2 and D3) Today R41.89 - Other symptoms and signs involving cognitive functions and awareness Comprehensive Met. Panel Today R41.89 - Other symptoms and signs involving cognitive functions and awareness Erythrocyte Sedimentation Rate Today R41.89 - Other symptoms and signs involving cognitive functions and awareness Quality Reporting (2019) Adult ([facility] 13801/02/69) Smoking risk assessment performed?: Yes Patient Tobacco Use Status: Never used Tobacco Coding Level of Care Code New Pt Level 4 (26415) Diagnoses Cognitive impairment R41.89
== END 2023-10-29 13:40 | disposition home or self-care (01) ==
PROVIDERS: PCP Internal Medicine; Visit Provider Psychiatry & Neurology Neurology
DX: R41.89 Other symptoms and signs involving cognitive functions and awareness (principal)
CPT/HCPCS: 99204

== ENCOUNTER → 2023-10-29 12:50 | Outpatient (BNVA) | payer MEDICARE, MEDICAID, SELFPAY | PROVIDERS: PCP Internal Medicine; Visit Provider Psychiatry & Neurology Neurology | DX: R41.89 Other symptoms and signs involving cognitive functions and awareness (principal) | CPT/HCPCS: 99202 ==

== ENCOUNTER 2023-11-07 09:09 | Outpatient (REF) | payer MEDICARE, MEDICAID, SELFPAY ==
--- NOTE | ~2023-11-07 | MM_ITS ---
EXAMINATION: BONE DENSITOMETRY CLINICAL INDICATION: Unspecified menopausal and perimenopausal disorder. COMPARISON: Previous BD dated 06/23/2021 and baseline BD dated 06/10/2018. TECHNIQUE: Using a iFlipd DXA System (software version: 13.1) manufactured by [employer], dual-energy x-ray absorptiometry was performed of the lumbar spine and left hip. The images are of good technical quality. Summary results are attached. FINDINGS: LEFT FEMUR, NECK: Current: BMD 0.775 g/cm2, Z-score 0.0, T-score -1.9, osteopenia. Prior: BMD 0.786 g/cm2. Baseline: BMD 0.773 g/cm2. LEFT FEMUR, TOTAL: Current: BMD 0.977 g/cm2, Z-score 1.5, T-score -0.2, normal, 0.2% increase from previous, 3.2% increase from baseline (<5% change is not significant). Prior: BMD 0.975 g/cm2. Baseline: BMD 0.947 g/cm2. AP SPINE L1-L4: Current: BMD 0.793 g/cm2, Z-score -1.4, T-score -3.2, osteoporosis, 11.9% decrease from previous, 12.0% decrease from baseline (<5% change is not significant). Prior: BMD 0.900 g/cm2. Baseline: BMD 0.901 g/cm2. IDENTIFIED RISK FACTORS: Menopause. HISTORY OF FRACTURE: None listed. MEDICATIONS: Calcium supplements or multivitamin, vitamin D. MM/XR DEXA axial skeleton IMPRESSION: 1. DIAGNOSIS: Osteoporosis based on the lowest T-score value of -3.2 in the lumbar spine applying World Health Organization criteria. 2. 10-YEAR FRACTURE RISK PREDICTION, FRAX: According to the guidelines, FRAX calculation should only be performed on patients in the osteopenia bone density category. Therefore, FRAX was not performed on this patient. 3. Treatment Recommendations: NOF guidelines recommend consideration for treatment in postmenopausal women and men age 50 and older presenting with the following: -A hip or vertebral (clinical or morphometric) fracture. -T-score less than or equal to -2.5 at the femoral neck or spine after appropriate evaluation to exclude secondary causes. -Low bone mass at the hip or spine and a 10-year fracture probability by FRAX of greater than or equal to 3% for hip fracture or greater than or equal to 20% for major osteoporotic fracture based on the [place] adapted WHO algorithm. 4. Other Recommendations: All treatment decisions require clinical judgment and consideration of individual patient factors, including patient preferences, comorbidities, previous drug use, risk factors not captured in the FRAX model (e.g. frailty, falls, vitamin D deficiency, increased bone turnover, interval significant decline in bone density) and possible under or overestimation of fracture risk by FRAX. Additional medical evaluation for secondary cause of low bone mineral density may be appropriate. FUTURE SCAN RECOMMENDATION: People with diagnosed cases of osteoporosis or at high risk for fracture should have regular bone mineral density tests. For patients eligible for Medicare, routine testing is allowed once every 2 years. The testing frequency can be increased to one year for patients who have rapidly progressing disease, those who are receiving or discontinuing medical therapy to restore bone mass, or have additional risk factors.
== END 2023-11-07 09:10 | disposition home or self-care (01) ==
LOC: HO.MAMMO 09:09
PROVIDERS: PCP Internal Medicine; Visit Provider Internal Medicine
DX: Z13.820 Encounter for screening for osteoporosis (principal); Z78.0 Asymptomatic menopausal state
CPT/HCPCS: 77080

== ENCOUNTER 2023-12-26 10:53 | Outpatient (REF) | payer MEDICARE, MEDICAID, SELFPAY ==
--- NOTE | ~2023-12-26 | MR_ITS ---
MR BRAIN WITHOUT CONTRAST NEUROQUANT CLINICAL INFORMATION: Memory loss. COMPARISON: None available per TECHNIQUE: Multiplanar, multisequence MR imaging was performed through the brain without the use of intravenous gadolinium. Additional high-resolution anatomic imaging was performed through the brain and images were submitted for post processing including auto-segmentation and volumetric analysis. FINDINGS: There is global cerebral volume loss. There is no hydrocephalus, extra-axial surface collection, or herniation. The major flow voids at the skull base are preserved. There is no acute infarct on diffusion-weighted imaging. There is no intracranial hemorrhage on the gradient recalled echo acquisition. There is mineralization within the globus pallidus bilaterally. The midline structures are normal. The cerebellar tonsils are normally positioned. The cerebellum and brainstem are normal. The craniocervical junction is normal. Osseous marrow signal intensity is homogenous. The visualized soft tissues are unremarkable. Baseline NeuroQuant volumetric assessment of the hippocampi was subsequently performed. Quantitative hippocampal volumes are estimated at an age-adjusted normative percentile of 11%. Lateral ventricular size is estimated at a normative percentile rank of 75%, and the inferior lateral ventricles are estimated at 34%. MR/MR brain wo con w neuroquant IMPRESSION: - No acute intracranial findings. Mild chronic microangiopathy. - There is global cerebral volume loss without mesial temporal lobe predilection. The pattern of volume loss is not specific for a mesial temporal focus neurodegenerative process.
== END 2023-12-26 10:54 | disposition home or self-care (01) ==
LOC: HO.MRI 10:53
PROVIDERS: PCP Internal Medicine; Visit Provider Psychiatry & Neurology Neurology
DX: R41.89 Other symptoms and signs involving cognitive functions and awareness (principal)
CPT/HCPCS: 70551; 76377

== ENCOUNTER → 2024-01-02 10:55 | Outpatient (REF) | payer MEDICARE, MEDICAID, SELFPAY | LOC: HO.SL 10:55 | PROVIDERS: PCP Internal Medicine; Visit Provider Psychiatry & Neurology Neurology | DX: R41.89 Other symptoms and signs involving cognitive functions and awareness (principal); R06.83 Snoring; G47.10 Hypersomnia, unspecified | CPT/HCPCS: 95806 ==

== ENCOUNTER → 2024-01-02 11:20 | Outpatient (BNV) | payer MEDICARE, MEDICAID, SELFPAY | PROVIDERS: PCP Internal Medicine; Visit Provider Psychiatry & Neurology Neurology | DX: R06.83 Snoring (principal); G47.10 Hypersomnia, unspecified | CPT/HCPCS: 95806 ==

== ENCOUNTER 2024-01-28 14:28 | Outpatient (AMB) | payer MEDICARE, MEDICAID, SELFPAY ==
--- NOTE | 2024-01-28 14:33 | MHC.OFFVIS ---
Intake Vital Signs 01/28/24 14:37 Height 5 ft 1 in Weight 132 lb 4 oz BMI 25.0 BP 132/70 Blood Pressure Location Lt brachial Position Sitting Pulse 82 Pulse Source Pulse Oximeter Pulse Oximetry (%) 96 Oxygen Delivery Method Room Air Intake Visit Reasons: 3 mo f/u- Other S&S involving Cog awarness - CONF Intake Note: Patient presents for 3 months f/u. Allergies cetirizine Allergy (Intermediate, Verified 01/28/24 14:37) inadequate response montelukast Allergy (Intermediate, Verified 01/28/24 14:37) inadequate response Penicillins [PENICILLINS] Allergy (Intermediate, Verified 01/28/24 14:37) ITCHY HIVES levothyroxine Adverse Reaction (Intermediate, Verified 01/28/24 14:37) dizziness, weakness Tussin (?) Adverse Reaction (Intermediate, Uncoded 10/29/23 12:58) rash,urticaria HPI HPI Comments History of Present Illness Details 73 y/o Portugese female comes for follow up of cognitive impairment. Pt was accompanied by her family memeber. She needs constant reminding for her daily activities like cooking, laundry etc, she keep forgetting what she needs to do. She needs reminders for medications. Pt misplaces things in her house, forgets conversations and difficulty with short term recall. Pt had a home sleep study done. The home sleep study result was normal sleep study. The AHI was 2/hr and oxygen liliana was 91%. However, pt states that she did not sleep well, could not sleep with the sleep study equipment. She has chronic sleep issue, uses trazodone 200 mg qHS. Brain MRI result was mild chronic microangiopathy, and global cerebral volume loss. Pt reports her depression manages well, mood is ok. No family h/o dementia , no head injury. Pt is not physically or socially active. Pt reports daytime sleepiness and tiredness. She used to take vitmain D supplement for deficiency. [facility] Medical History (Updated 02/03/24 @ 11:41 by Iza Carmona CNP) Snoring Mild recurrent major depression Thyroid nodule Subclinical hypothyroidism Elevated TSH Diabetes mellitus Insomnia Depression Pure hypercholesterolemia Hypovitaminosis D Surgical History History of colonoscopy History of removal of cyst History of left breast biopsy History of hemorrhoidectomy Family History Father Myocardial infarction Mother No problems noted. Family/Other FH: mental illness Mental health disorder Social History Housing: House Alcohol intake: never Patient Tobacco Use Status: Never used Tobacco e-Cigarette/Vaping Use: Never Used Second Hand Smoke Exposure: No service: No Current occupational status: unemployed Cognitive needs: No Hearing needs: No Vision needs: No Review of Systems Const All systems reviewed & are unremarkable except as noted in HPI and below Physical Exam Vital Signs: Last Vital Signs Pulse 82 01/28/24 14:37 BP 132/70 01/28/24 14:37 Pulse Ox 96 01/28/24 14:37 Oxygen Delivery Method Room Air 01/28/24 14:37 BMI result Body Mass Index 25.0 Const General: cooperative, healthy appearing and comfortable Nutritional Appearance: average body habitus Orientation/consciousness: patient oriented x3 Eyes Pupils: Equal, round and reactive pupils present Neuro Other: Mallampatti grade 4 General: patient oriented x3, No gait normal, tone normal, moves all extremities and no focal motor deficits Cranial nerves: Yes Facial sensation intact/muscles of mastication intact, Yes Equal, round and reactive pupils present, Yes Bilaterally intact EOM present, Yes Nystagmus not present, Yes Normal facial strength present, Yes Midline tongue present and Yes Symmetric palate elevation present Cognition (Neuro): normal cognition Gait exam (Neuro): Normal gait present Deep tendon reflexes (DTR's): Right triceps reflex intensity grade: 2+, Left triceps reflex intensity grade: 2+, Rt Biceps (C5, C6): 2+, Left biceps reflex intensity grade: 2+, Right brachioradialis reflex intensity grade: 2+, Left brachioradialis reflex intensity grade: 2+, Right patellar reflex intensity grade: 2+ and Left patellar reflex intensity grade: 2+ Coordination: [id number] test normal Assessment & Plan Assessment & Plan (1) Cognitive impairment: Comment: mild . she did well on testing Code(s): R41.89 - Other symptoms and signs involving cognitive functions and awareness (2) Snoring: Code(s): R06.83 - Snoring (3) Insomnia: Code(s): G47.00 - Insomnia, unspecified (4) Daytime sleepiness: Code(s): R40.0 - Somnolence Plan The home sleep study was inconclusive, pt did not sleep with the equipment. Will have repeat sleep study to assess sleep apnea. Advised patient to continue to take vitamin D supplement with magneisum 400 mg qHS. Encouraged patient to increase physical and social activities. Orders: Orders RT PSG in-lab sleep study 01/28/24 R06.83 - Snoring, R41.89 - Other symptoms and signs involving cognitive functions and awareness Medications: New cholecalciferol (vitamin D3) 25 mcg PO DAILY 30 days 30 caps 6RF magnesium oxide 400 mg PO BEDTIME 30 days 30 tabs 6RF Quality Reporting (2019) Adult ([facility] 13801/02/69) Smoking risk assessment performed?: Yes Patient Tobacco Use Status: Never used Tobacco Coding Level of Care Code Est Pt Level 3 (10536) Diagnoses Cognitive impairment R41.89 Snoring R06.83 Insomnia G47.00 Daytime sleepiness R40.0
[2024-01-28 14:37] VITALS: BP 132/70; PULSE 82; O2SAT 96; BMI 25.0
== END 2024-01-28 15:12 | disposition home or self-care (01) ==
PROVIDERS: PCP Internal Medicine; Visit Provider Nurse Practitioner Family
DX: R41.89 Other symptoms and signs involving cognitive functions and awareness (principal); R06.83 Snoring; G47.00 Insomnia, unspecified; R40.0 Somnolence
CPT/HCPCS: 99213

== ENCOUNTER → 2024-01-28 14:28 | Outpatient (BNVA) | payer MEDICARE, MEDICAID, SELFPAY | PROVIDERS: PCP Internal Medicine; Visit Provider Nurse Practitioner Family | DX: R06.83 Snoring (principal); R41.89 Other symptoms and signs involving cognitive functions and awareness; G47.00 Insomnia, unspecified; R40.0 Somnolence | CPT/HCPCS: 99212 ==

== ENCOUNTER 2024-02-03 07:56 | Outpatient (REF) | payer MEDICARE, MEDICAID, SELFPAY ==
[2024-02-03 08:08] LABS: MANUAL DIFF FLAG NO
[2024-02-03 08:24] LABS: Basophils Absolute Auto 0.1 X10*3/uL (0.0-0.2); Basophils Percent Auto 0.6 % (0-2); Eosinophils Absolute Auto 0.2 X10*3/uL (0.0-0.4); Hematocrit 42.1 % (37.0-47.0); Hemoglobin 13.8 g/dl (12.0-16.0); Imm Gran Abs Auto 0.01 X10*3/uL (0.00-0.03); Imm Gran Pct Auto 0.1 % (0.0-0.4); Lymphocytes Absolute Auto 3.5 X10*3/uL (1.2-4.9); Lymphocytes Percent Auto 43.5 % (20-40); Mean Corpuscular HGB Conc 32.8 g/dl (31.0-35.0); Mean Corpuscular Hemoglobin 30.9 pg (27.0-33.0); Mean Corpuscular Volume 94.4 fL (80.0-98.0); Mean Platelet Volume 9.6 fL (9.4-12.3); Monocytes Absolute Auto 0.6 X10*3/uL (0.1-1.2); Monocytes Percent Auto 7.9 % (2-11); Neutrophils Absolute Auto 3.6 x10*3/uL (2.0-8.3); Neutrophils Percent Auto 44.9 % (45-73); Platelet Count 228 X10*3/uL (160-400); Red Blood Count 4.46 X10*6/uL (4.20-5.50); Red Cell Distribution Width 13.5 % (11.0-16.0); White Blood Count 7.9 X10*3/uL (4.8-10.8)
[2024-02-03 08:58] LABS: Alanine Aminotransferase 21 U/L (0-31); Albumin Level 4.5 g/dL (3.5-5.0); Alkaline Phosphatase 63 U/L (39-117); Anion Gap 14 (12-20); Aspartate Amino Transferase 20 U/L (5-31); Bilirubin Total 0.5 mg/dL (0.0-1.0); Blood Urea Nitrogen 17 mg/dL (9-16); Calcium 9.7 mg/dL (8.4-10.2); Carbon Dioxide 28 mmol/L (22-29); Chloride 101 mmol/L (96-108); Cholesterol 133 mg/dL (<200); Estimated Glomerular Filt Rate > 60; Glucose Fasting 113 mg/dL (60-99); Glucose Random 114 mg/dL (60-115); HDL Cholesterol 42 mg/dL (>40); LDL Cholesterol Calculated 56 mg/dL (<100); Potassium 4.5 mmol/L (3.3-5.1); Sodium 138 mmol/L (135-145); Total Protein 7.5 g/dL (6.5-8.0); Triglycerides 178 mg/dL (<150)
[2024-02-03 09:10] LABS: Erythrocyte Sedimentation Rate 7 MM/HR (0-20)
[2024-02-03 09:14] LABS: Thyroid Stimulating Hormone 5.68 uIU/mL (0.32-4.0); Vitamin D 25-OH Total 23.9 ng/mL (>30)
[2024-02-03 09:27] LABS: Folate 9.9 ng/mL (> or = 4.0); Vitamin B12 406 pg/mL (200-900)
[2024-02-03 10:00] LABS: Creatinine Urine 93.28 mg/dL; Microalbum/Creatinine Ratio Ur 20.3 ug/mg cr (<30)
[2024-02-07 11:32] LABS: Vitamin D 25-OH, D2 <4 ng/mL; Vitamin D 25-OH, D3 24 ng/mL; Vitamin D 25-OH, Total 24 ng/mL (30-100)
== END 2024-02-03 07:57 | disposition home or self-care (01) ==
LOC: HO.LAB 07:56
PROVIDERS: Psychiatry & Neurology Neurology; PCP Internal Medicine; Visit Provider Internal Medicine
DX: E03.9 Hypothyroidism, unspecified (principal); R41.89 Other symptoms and signs involving cognitive functions and awareness; E55.9 Vitamin D deficiency, unspecified; E11.9 Type 2 diabetes mellitus without complications; E78.5 Hyperlipidemia, unspecified
CPT/HCPCS: 36415; 80053; 80061; 82043; 82306; 82570; 82607; 82746; 84443; 85025; 85652

== ENCOUNTER 2024-02-06 08:01 | Outpatient (AMB) | payer MEDICARE, SELFPAY ==
--- NOTE | 2024-02-06 08:17 | A.OFFPC_ITS ---
Vital Signs 02/06/24 08:20 02/06/24 10:20 Height 5 ft 1 in Weight 130 lb BMI 24.6 BP 168/90 H 160/90 H Blood Pressure Location Lt brachial Lt brachial Position Sitting Sitting Intake Visit Reasons: dm Intake Note: Patient here for a follow up DM Dean Of Girls Required: No Accompanied by: Spouse Allergies cetirizine Allergy (Intermediate, Verified 02/06/24 08:36) inadequate response montelukast Allergy (Intermediate, Verified 02/06/24 08:36) inadequate response Penicillins [PENICILLINS] Allergy (Intermediate, Verified 02/06/24 08:36) ITCHY HIVES levothyroxine Adverse Reaction (Intermediate, Verified 02/06/24 08:36) dizziness, weakness Tussin (?) Adverse Reaction (Intermediate, Uncoded 02/06/24 08:36) rash,urticaria Medication List - Last Reconciled 02/06/24 by Keke Ivy MD blood sugar diagnostic (FreeStyle Lite Strips) Use 1 test strip once a day calcium carbonate 600 mg PO BID 90 days cholecalciferol (vitamin D3) 25 mcg PO DAILY 30 days diclofenac sodium 1% 2 grams topical QID PRN 30 days fluoxetine 20 mg PO DAILY 90 days fluticasone propionate 0.05% 1 appl topical DAILY 30 days magnesium oxide 400 mg PO BEDTIME 30 days metformin 850 mg PO BID 90 days pravastatin 40 mg PO BEDTIME 90 days risperidone 4 mg PO DAILY 90 days Synthroid (levothyroxine) 25 mcg PO DAILY 90 days NS trazodone 200 mg (2 x 100 mg) PO BEDTIME Tobacco use date assessed: 02/06/24 Fall risk assessment: No Falls in past year Last assessed Fall Risk: 02/06/24 Dental Screening Dental Screen Date: 02/06/24 Did you have a dental visit in the last 12 months?: No Did you have a dental problem in the last 6 months where you did not have access to dental care?: No Was dental information given to patient?: Patient has dentist HPI HPI Comments History of Present Illness Details This is a 73-year-old female with diabetes mellitus type 2, pure hypercholesterolemia, hypothyroidism, mild recurrent major depression and mild cognitive impairment that comes today accompanied by for follow-up on her conditions. A1c within goal. LDL within goal. TSH elevated and Synthroid will be increased from 25 mcg to 50 mcg. TSH will be repeated in 6 weeks. Depression has been stable with SSRIs. Has mild cognitive impairment follow by Neurology which prescribed magnesium. Neurology wants to repeat sleep study to rule out obstructive sleep apnea due to insomnia, fatigue and tiredness. Also has a history of low vitamin-D and neurologist restart her on vitamin-D. She had a bone density test showing osteoporosis and has never used medication for it. Will be referred to rheumatology. Denies chest pain or shortness of breath. [facility] Medical History (Updated 02/06/24 @ 10:21 by Keke Ivy MD) Snoring Mild recurrent major depression Thyroid nodule Subclinical hypothyroidism Elevated TSH Diabetes mellitus Insomnia Depression Pure hypercholesterolemia Hypovitaminosis D Surgical History History of colonoscopy History of removal of cyst History of left breast biopsy History of hemorrhoidectomy Family History Father Myocardial infarction Mother No problems noted. Family/Other FH: mental illness Mental health disorder Social History Housing: House Alcohol intake: never Patient Tobacco Use Status: Never used Tobacco e-Cigarette/Vaping Use: Never Used Second Hand Smoke Exposure: No service: No Current occupational status: unemployed Cognitive needs: No Hearing needs: No Vision needs: No Questionnaire PHQ-9 Over the last 2 weeks, how often have you been bothered by any of the following problems? 1. Little interest or pleasure in doing things: not at all 2. Feeling down, depressed, or hopeless: not at all 3. Trouble falling or staying asleep, or sleeping too much: not at all 4. Feeling tired or having little energy: not at all 5. Poor appetite or overeating: not at all 6. Feeling bad about yourself - or that you are a failure or have let yourself or your family down: not at all 7. Trouble concentrating on things, such as reading the newspaper or watching television: not at all 8. Moving or speaking so slowly that other people could have noticed. Or the opposite - being so fidgety or restless that you have been moving around a lot more than usual: not at all 9. Thoughts that you would be better off or of hurting yourself in some way: not at all Total score: 0 Depression Screening Interpretation: Negative Depression Screening Done: Yes 56980 - PHQ-9 Billing: Yes Source: Developed by Drs. Dae Forman, Rin Mallory, Anuj Macdonald and colleagues, with an educational andrzej from [employer]. Thrive Questionnaire Date Thrive assessed: 02/06/24 I am a: Patient What is your living situation today?: I have a steady place to live Within the past 12 months, did the food you bought not last and you didn't have the money to get more?: Never true Within the past 12 months, did you worry whether your food would run out before you got money to buy more?: Never true Do you have trouble paying for medicines?: No Do you have trouble getting transportation to medical appointments?: No Do you have trouble paying your heating and electricity bill?: No Do you have trouble taking care of your child, family member or friend?: No Do you have trouble with day-to-day activities such as bathing, preparing meals, shopping, managing finances, etc.?: No Are you currently unemployed and looking for a job?: No Are you interested in more education?: No Please select the resources that you would like help with: None Currently or been in a relationship where the following occur: no concerns reported THRIVE Score: 0 AUDIT C Alcohol Use Questionnaire (AUDIT-C) 1. How often do you have a drink containing alcohol?: Never Total Score: 0 CARRIE-7 AMB Questionnaire CARRIE-7 Date CARRIE - 7 assessed: 02/06/24 Feeling nervous, anxious, or on edge: 0 = Not at all Not being able to stop or control worryin = Not at all Worrying too much about different things: 0 = Not at all Trouble relaxin = Not at all Being so restless that it is hard to sit still: 0 = Not at all Becoming easily annoyed or irritable: 0 = Not at all Feeling afraid as if something awful might happen: 0 = Not at all Total ACRRIE-7 score (0-4 normal; 5-9 mild; 10-14 moderate; 15-21 severe): 0 Source: Developed by Rin Mckeon B.W. Mohamud, Anuj Macdonald and colleagues, with an educational andrzej from [employer]. CARRIE-7 Assessment Billing CARRIE-7 Assessment Tool: CARRIE-7 Assessment 11595 Review of Systems Const All systems reviewed & are unremarkable except as noted in HPI and below Eyes Reports no additional complaints, Denies change in vision and Denies other visual disturbances Card Denies chest pain at rest, Denies chest pain with activity, Denies edema, Denies irregular heart rhythm, Denies claudication, Denies dyspnea, Denies dyspnea on exertion, Denies orthopnea, Denies paroxysmal nocturnal dyspnea and Denies slow heart rate Resp Denies cough, Denies dyspnea and Denies dyspnea on exertion Neuro Reports memory loss Psych Reports memory loss Physical exam (Primary Care) Vital Signs: Last Vital Signs BP 168/90 H 02/06/24 08:20 BMI result Body Mass Index 24.6 Tobacco/Smoking Status: Tobacco use Status Tobacco use date assessed 02/06/24 02/06/24 08:26 Patient Tobacco Use Status Never used Tobacco 02/06/24 08:26 e-Cigarette/Vaping Use Never Used 02/06/24 08:26 PHQ-9: PHQ-9 Score PHQ-9: Total score 0 02/06/24 08:54 Depression Screening Interpretation: Negative Thrive Assessment: Date of Thrive Assessment Date Thrive assessed 02/06/24 02/06/24 08:26 Currently or been in a relationship where the following occur: no concerns reported Resp Effort & Inspection: normal respiratory effort Auscultation: clear to auscultation bilaterally Cardio Jugular venous distension: no JVD Rate: regular rate Rhythm: regular rhythm Heart sounds: S1 normal heart sound present and S2 normal heart sound present Extrem General: Yes full ROM Psych Appearance: grossly normal Results AMB Hemoglobin A1c AMB Hemoglobin A1c 5.9 % Last Edit by KATHY Weiss on 02/06/24 08:3 3 Results Reviewed Results Reviewed: Laboratory Last Values Hgb A1c (Clinic) 5.9 % (4.0-6.0) 02/06/24 08:16 Assessment and Plan Assessment & Plan (1) Mild recurrent major depression: Code(s): F33.0 - Major depressive disorder, recurrent, mild Plan: Continue SSRIs. (2) Hypothyroid: Code(s): E03.9 - Hypothyroidism, unspecified Plan: Increase Synthroid from 25 mcg to 50 mcg. Repeat TSH in 6 weeks. (3) Diabetes mellitus: Code(s): E11.9 - Type 2 diabetes mellitus without complications Qualifiers: Diabetes mellitus type: type 2 Diabetes mellitus detention insulin use: without buttermaker use Diabetes mellitus complication status: with hyperglycemia Qualified Code(s): E11.65 - Type 2 diabetes mellitus with hyperglycemia Plan: Continue metformin. A1c goal is equal or less than 7%. (4) Pure hypercholesterolemia: Code(s): E78.00 - Pure hypercholesterolemia, unspecified Plan: Continue statins. LDL goal is less than 70. (5) Cognitive impairment: Comment: mild . she did well on testing Code(s): R41.89 - Other symptoms and signs involving cognitive functions and awareness Plan: Follow-up with Neurology. (6) Osteoporosis: Code(s): M81.0 - Age-related osteoporosis without current pathological fracture Plan: Referred to rheumatology. Orders: Orders AMB Hemoglobin A1c Today E11.9 - Type 2 diabetes mellitus without complications Magnesium Today E83.42 - Hypomagnesemia Lipid Panel 4 Months E78.5 - Hyperlipidemia, unspecified Microalbumin, Random (w Creat) 4 Months E11.9 - Type 2 diabetes mellitus without complications Comprehensive Evans. Panel Fast 4 Months E11.9 - Type 2 diabetes mellitus without complications Thyroid Stimulating Hormone 6 Weeks E03.9 - Hypothyroidism, unspecified Vitamin D 25-OH Total 4 Months E55.9 - Vitamin D deficiency, unspecified Referrals Rheumatology Referral M81.0 - Age-related osteoporosis without current pathological fracture Medications: New Synthroid (levothyroxine) 50 mcg PO DAILY 90 days 90 tabs 1RF NS E03.9 - Hypothyroidism, unspecified Discontinued Synthroid (levothyroxine) Discontinued Reason: No Longer Medically Relevant 25 mcg PO DAILY 90 days 90 tabs 1RF NS E03.9 - Hypothyroidism, unspecified Coding Level of Care Code Est Pt Level 4 (48336) Diagnoses Mild recurrent major depression F33.0 Hypothyroid E03.9 Type 2 diabetes mellitus with hyperglycemia, without long-term current use of insulin E11.65 Diabetes mellitus type: type 2 Diabetes mellitus detention insulin use: without buttermaker use Diabetes mellitus complication status: with hyperglycemia Pure hypercholesterolemia E78.00 Cognitive impairment R41.89 Osteoporosis M81.0 Additional Codes CARRIE-7 Assessment Billing - CARRIE-7 Assessment Tool: CARRIE-7 Assessment 87401 ([id number]) Time Spent (min) 25
[2024-02-06 08:20] VITALS: BP 168/90; BMI 24.6
[2024-02-06 10:20] VITALS: BP 160/90
== END 2024-02-06 08:52 | disposition home or self-care (01) ==
PROVIDERS: PCP Internal Medicine; Visit Provider Internal Medicine
DX: E11.65 Type 2 diabetes mellitus with hyperglycemia (principal); F33.0 Major depressive disorder, recurrent, mild; E03.9 Hypothyroidism, unspecified; E78.00 Pure hypercholesterolemia, unspecified; R41.89 Other symptoms and signs involving cognitive functions and awareness; M81.0 Age-related osteoporosis without current pathological fracture
CPT/HCPCS: 83036; 99214

== ENCOUNTER → 2024-03-16 20:30 | Outpatient (REF) | payer MEDICARE, MEDICAID, SELFPAY | LOC: HO.SL 20:30 | PROVIDERS: PCP Internal Medicine; Visit Provider Nurse Practitioner Family | DX: R06.83 Snoring (principal); R41.89 Other symptoms and signs involving cognitive functions and awareness; R40.0 Somnolence | CPT/HCPCS: 95810 ==

== ENCOUNTER → 2024-03-16 20:30 | Outpatient (BNV) | payer MEDICARE, MEDICAID, SELFPAY | PROVIDERS: PCP Internal Medicine; Visit Provider Psychiatry & Neurology Neurology | DX: R06.83 Snoring (principal); R40.0 Somnolence | CPT/HCPCS: 95810 ==

== ENCOUNTER 2024-04-21 14:49 | Outpatient (AMB) | payer MEDICARE, MEDICAID, SELFPAY ==
--- NOTE | 2024-04-21 15:06 | A.OFFVIS_ITS ---
Vital Signs 04/21/24 15:17 Height 5 ft 1 in Weight 130 lb 1.164 oz BMI 24.6 BP 150/72 H Blood Pressure Location Rt brachial Position Sitting Pulse 70 Pulse Source Pulse Oximeter Pulse Oximetry (%) 97 Intake Visit Reasons: Osteoporosis Intake Note: New pt presents today to establish care and osteoporosis consult. Marine Safety Officer Required: No Marine Safety Officer Name: [id number] Information Interpreted: clinical only Accompanied by: Spouse Allergies cetirizine Allergy (Intermediate, Verified 04/21/24 15:19) inadequate response montelukast Allergy (Intermediate, Verified 04/21/24 15:19) inadequate response Penicillins [PENICILLINS] Allergy (Intermediate, Verified 04/21/24 15:19) ITCHY HIVES levothyroxine Adverse Reaction (Intermediate, Verified 04/21/24 15:19) dizziness, weakness Tussin (?) Adverse Reaction (Intermediate, Uncoded 04/21/24 15:19) rash,urticaria HPI Comments Details: Mrs. Bettencourt 73yoF here on referral from PCP for treatment of Osteoporosis. Patient is here with her . Bone Density done 11/07/2023. The llowest T score -3.2 in Hip. She denies prior treatment and currently takes Vitamin D and calcium. Her medical History includes hypertension, T2DM, hypercholesterolemia, low D, hypothyroidism and cognitive impairment. Her risk factors for Osteoporosis includes being a postmenopause, long standing use of PPIs for GERD and Hyperparthyroid. She is fairly inactive, and denies excessive consumption of alcohol. Patient denies history of eating disorder and other concerns for mal-absorption. She denies inflammatory arthritis and family history of fractures. [facility] Medical History (Updated 04/25/24 @ 21:12 by Barbara Davis [facility]) Snoring Mild recurrent major depression Thyroid nodule Subclinical hypothyroidism Elevated TSH Diabetes mellitus Insomnia Depression Pure hypercholesterolemia Hypovitaminosis D Surgical History History of colonoscopy History of removal of cyst History of left breast biopsy History of hemorrhoidectomy Family History Father Myocardial infarction Mother No problems noted. Family/Other FH: mental illness Mental health disorder Social History (Reviewed 04/21/24 @ 15:19 by IVIS Forman Housing: House Alcohol intake: never Patient Tobacco Use Status: Never used Tobacco e-Cigarette/Vaping Use: Never Used Second Hand Smoke Exposure: No service: No Current occupational status: unemployed Cognitive needs: No Hearing needs: No Vision needs: No Review of Systems Const All systems reviewed & are unremarkable except as noted in HPI and below Physical Exam Vital Signs: Last Vital Signs Pulse 70 04/21/24 15:17 BP 150/72 H 04/21/24 15:17 Pulse Ox 97 04/21/24 15:17 BMI result Body Mass Index 24.6 Vital signs reviewed. Constitutional: Non-toxic appearing. No acute distress. Well-developed and well-nourished. HEENT: Normocephalic and atraumatic. External auditory canals without erythema or edema bilaterally. Skin: Warm and dry. No rashes or lesions noted. Neck: Full and painless range of motion. No cervical lymphadenopathy. Cardio: Regular rate and rhythm. No murmurs, gallops, or rubs. No lower extremit y edema. No JVD. Pulmonary: No respiratory distress. No accessory muscle usage. Gastrointestinal: Soft, nontender, and nondistended in all 4 quadrants. Normoactive bowel sounds in all 4 quadrants. Genitourinary: No CVA tenderness. Musculoskeletal: Normal range of motion in joints throughout the body. No deformity or other signs of injury. Neuro: Alert and oriented x4. Cranial nerves 2-12 grossly intact. Patient forgetful Quality Reporting (2019) Adult ([facility] 138/01/02/69) Smoking risk assessment performed?: Yes Patient Tobacco Use Status: Never used Tobacco Results Reviewed Results Reviewed: Laboratory Tests 02/03/24 02/03/24 08:03 08:06 ESR 7 Creatinine 0.84 Estimated GFR > 60 AST 20 ALT 21 Alkaline Phosphatase 63 25-OH Vitamin D Total 24 L Folate 9.9 TSH 5.68 H Urine Creatinine 93.28 Ordering Physician: Keke Coe MD Results: Date of Service: 11/07/23 Follow Up: Procedure(s): XR DEXA axial skeleton Accession Number(s): [id number] cc: Keke Coe MD~ EXAMINATION: BONE DENSITOMETRY CLINICAL INDICATION: Unspecified menopausal and perimenopausal disorder. COMPARISON: Previous BD dated 06/23/2021 and baseline BD dated 06/10/2018. TECHNIQUE: Using a [employer] DXA System (software version: 13.1) manufactured by [employer], dual-energy x-ray absorptiometry was performed of the lumbar spine and left hip. The images are of good technical quality. Summary results are attached. FINDINGS: LEFT FEMUR, NECK: Current: BMD 0.775 g/cm2, Z-score 0.0, T-score -1.9, osteopenia. Prior: BMD 0.786 g/cm2. Baseline: BMD 0.773 g/cm2. LEFT FEMUR, TOTAL: Current: BMD 0.977 g/cm2, Z-score 1.5, T-score -0.2, normal, 0.2% increase from previous, 3.2% increase from baseline (<5% change is not significant). Prior: BMD 0.975 g/cm2. Baseline: BMD 0.947 g/cm2. AP SPINE L1-L4: Current: BMD 0.793 g/cm2, Z-score -1.4, T-score -3.2, osteoporosis, 11.9% decrease from previous, 12.0% decrease from baseline (<5% change is not significant). Prior: BMD 0.900 g/cm2. Baseline: BMD 0.901 g/cm2. IDENTIFIED RISK FACTORS: Menopause. HISTORY OF FRACTURE: None listed. MEDICATIONS: Calcium supplements or multivitamin, vitamin D. MM/XR DEXA axial skeleton IMPRESSION: 1. DIAGNOSIS: Osteoporosis based on the lowest T-score value of -3.2 in the lumbar spine applying World Health Organization criteria. Assessment & Plan Assessment & Plan (1) Osteoporosis: Code(s): M81.0 - Age-related osteoporosis without current pathological fracture Category: Medical Qualifiers: Osteoporosis type: age-related Presence of current pathological fracture: without current pathological fracture Qualified Code(s): M81.0 - Age- related osteoporosis without current pathological fracture Plan #Osteoporosis: Patient here for treatment T-Score 3.2. We will start Reclast infusion as the first treatment option. I will start PA. We discussed that mild flu-like symptoms may be felt for about a week after infusion. Tylenol and Ibuprofen are good choices if needed. Will obtain labs. F/6 months I spent 30 minutes reviewing history, evaluating patient and docuementing. Orders: Orders Collagen Crosslinks NTX 04/21/24 M81.0 - Age-related osteoporosis without current pathological fracture Protein Electrophoresis, Serum 04/21/24 M81.0 - Age-related osteoporosis without current pathological fracture Phosphorus 04/21/24 M81.0 - Age-related osteoporosis without current pathological fracture Collagen Type I C-Telopeptide 04/21/24 M81.0 - Age-related osteoporosis without current pathological fracture Alkaline Phosphatase Bone 04/21/24 M81.0 - Age-related osteoporosis without current pathological fracture Comprehensive Met. Panel 04/21/24 M81.0 - Age-related osteoporosis without current pathological fracture Parathyroid Hormone Intact 04/21/24 M81.0 - Age-related osteoporosis without current pathological fracture Coding Level of Care Code New Pt Level 3 (30211) Complex EM visit Add On G2211 Diagnoses Age-related osteoporosis without current pathological fracture M81.0 Osteoporosis type: age-related Presence of current pathological fracture: without current pathological fracture
[2024-04-21 15:17] VITALS: BP 150/72; PULSE 70; O2SAT 97; BMI 24.6
== END 2024-04-21 15:40 | disposition home or self-care (01) ==
PROVIDERS: PCP Internal Medicine; Visit Provider Nurse Practitioner Family
DX: M81.0 Age-related osteoporosis without current pathological fracture (principal)
CPT/HCPCS: 99203; G2211

== ENCOUNTER → 2024-04-21 14:49 | Outpatient (BNVA) | payer MEDICARE, MEDICAID, SELFPAY | PROVIDERS: PCP Internal Medicine; Visit Provider Nurse Practitioner Family | DX: M81.0 Age-related osteoporosis without current pathological fracture (principal); Z78.0 Asymptomatic menopausal state | CPT/HCPCS: 99202 ==

== ENCOUNTER 2024-04-28 08:33 | Outpatient (REF) | payer MEDICARE, MEDICAID, SELFPAY ==
--- NOTE | ~2024-04-28 | MM_ITS ---
EXAMINATION: MM SCREENING DIGITAL BREAST TOMOSYNTHESIS, BILATERAL CLINICAL INFORMATION: Screening. Asymptomatic. COMPARISON: Mammography: This study is compared with prior exams dating back to 2018. TECHNIQUE: Digital breast tomosynthesis is performed in both the craniocaudal and mediolateral oblique views along with computer-aided detection (CAD). Synthesized 2D images are generated from the tomosynthesis. FINDINGS: There are scattered areas of fibroglandular density (ACR BI-RADS breast composition Category b). There are no significant masses, abnormal calcifications, or other abnormalities. Minor postsurgical change in the upper outer quadrant of the left breast. MM/MM tomosynthesis screening BI IMPRESSION: No mammographic evidence of malignancy. ASSESSMENT: BI-RADS BI-RADS 1 - Negative RECOMMENDATION: Routine annual mammography screening. 1 year F/U This examination should not preclude the clinical evaluation of a suspicious palpable abnormality. This patient's information was entered into a reminder system with a target due date for their next mammogram.
== END 2024-04-28 08:34 | disposition home or self-care (01) ==
LOC: HO.MAMMO 08:33
PROVIDERS: PCP Internal Medicine; Visit Provider Internal Medicine
DX: Z12.31 Encounter for screening mammogram for malignant neoplasm of breast (principal)
CPT/HCPCS: 77063; 77067

== ENCOUNTER → 2024-04-28 08:45 | Outpatient (BNV) | payer MEDICARE, MEDICAID, SELFPAY | PROVIDERS: PCP Internal Medicine; Visit Provider Radiology Diagnostic Radiology | DX: Z12.31 Encounter for screening mammogram for malignant neoplasm of breast (principal) | CPT/HCPCS: 77063; 77067 ==

== ENCOUNTER 2024-05-04 07:53 | Outpatient (REF) | payer MEDICARE, MEDICAID, SELFPAY ==
[2024-05-04 09:08] LABS: Alanine Aminotransferase 21 U/L (0-31); Alkaline Phosphatase 67 U/L (39-117); Anion Gap 11 (12-20); Aspartate Amino Transferase 22 U/L (5-31); Bilirubin Total 0.5 mg/dL (0.0-1.0); Blood Urea Nitrogen 16 mg/dL (9-16); Calcium 9.8 mg/dL (8.4-10.2); Carbon Dioxide 30 mmol/L (22-29); Chloride 102 mmol/L (96-108); Cholesterol 224 mg/dL (<200); Estimated Glomerular Filt Rate 53; Glucose Fasting 147 mg/dL (60-99); HDL Cholesterol 39 mg/dL (>40); LDL Cholesterol Calculated 128 mg/dL (<100); Potassium 4.1 mmol/L (3.3-5.1); Sodium 139 mmol/L (135-145); Total Protein 6.9 g/dL (6.5-8.0); Triglycerides 285 mg/dL (<150)
[2024-05-04 09:14] LABS: Creatinine Urine 165.67 mg/dL
[2024-05-04 09:28] LABS: Thyroid Stimulating Hormone 1.47 uIU/mL (0.32-4.0); Vitamin D 25-OH Total 32.9 ng/mL (>30)
== END 2024-05-04 07:54 | disposition home or self-care (01) ==
LOC: HO.LAB 07:53
PROVIDERS: PCP Internal Medicine; Visit Provider Internal Medicine
DX: E11.9 Type 2 diabetes mellitus without complications (principal); E03.9 Hypothyroidism, unspecified; E78.5 Hyperlipidemia, unspecified; E83.42 Hypomagnesemia
CPT/HCPCS: 36415; 80053; 80061; 82043; 82306; 82570; 83735; 84443

== ENCOUNTER 2024-06-10 08:11 | Outpatient (AMB) | payer MEDICARE, MEDICAID, SELFPAY ==
--- NOTE | 2024-06-10 08:18 | MHC.PC.OV ---
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: No Accompanied by: Spouse Allergies cetirizine Allergy (Intermediate, Verified 06/10/24 08:28) inadequate response montelukast Allergy (Intermediate, Verified 06/10/24 08:28) inadequate response Penicillins [PENICILLINS] Allergy (Intermediate, Verified 06/10/24 08:28) ITCHY HIVES levothyroxine Adverse Reaction (Intermediate, Verified 06/10/24 08:28) dizziness, weakness Tussin (?) Adverse Reaction (Intermediate, Uncoded 06/10/24 08:28) rash,urticaria Medication List - Last Reconciled 06/10/24 by Keke Ivy MD blood sugar diagnostic (FreeStyle Lite Strips) Use 1 test strip once a day calcium carbonate 600 mg PO BID 90 days cholecalciferol (vitamin D3) 25 mcg PO DAILY 30 days diclofenac sodium 1% 2 grams topical QID PRN 30 days fluoxetine 20 mg PO DAILY 90 days fluticasone propionate 0.05% 1 appl topical DAILY 30 days lisinopril 5 mg PO DAILY 90 days magnesium oxide 400 mg PO BEDTIME 30 days metformin 850 mg PO BID 90 days pravastatin 40 mg PO BEDTIME 90 days risperidone 4 mg PO DAILY 90 days Synthroid (levothyroxine) 50 mcg PO DAILY 90 days NS trazodone 100 mg PO BEDTIME 90 days Tobacco use date assessed: 02/06/24 Fall risk assessment: No Falls in past year Last assessed Fall Risk: 06/10/24 Dental Screening Dental Screen Date: 02/06/24 HPI HPI Comments History of Present Illness Details This is a 73-year-old female with diabetes mellitus type 2, hypertension, pure hypercholesterolemia, hypothyroidism, mild recurrent major depression, insomnia and osteoporosis that comes today accompanied by complaining of a dry cough that has been present on and off for few months. I will discontinue lisinopril and start her on amlodipine for her blood pressure. Blood pressure is elevated today and will be recheck in 3 weeks by nurse navigator. A1c within goal. LDL not on goal and cholesterol and triglycerides are elevated but she has not been taking her pravastatin because somehow she did not know she had to take it. She will start taking it and lipid panel will be recheck in 4 months. TSH is normal. Depression well controlled with fluoxetine. Insomnia somewhat stable with trazodone and I advised her that this was as needed. She said that sometimes she sleep during the night and few hours during the day and then she can not sleep. I advised her to not sleep during the day. She has osteoporosis from last DEXA scan done October of last year and was evaluated by Rheumatology which decided to give her Reclast once a year. This medication is still pending approval by insurance. [facility] Medical History (Updated 06/10/24 @ 09:15 by Keke Ivy MD) Snoring Mild recurrent major depression Thyroid nodule Subclinical hypothyroidism Elevated TSH Diabetes mellitus Insomnia Depression Pure hypercholesterolemia Hypovitaminosis D Surgical History History of colonoscopy History of removal of cyst History of left breast biopsy History of hemorrhoidectomy Family History Father Myocardial infarction Mother No problems noted. Family/Other FH: mental illness Mental health disorder Social History Housing: House Alcohol intake: never Patient Tobacco Use Status: Never used Tobacco e-Cigarette/Vaping Use: Never Used Second Hand Smoke Exposure: No service: No Current occupational status: unemployed Cognitive needs: No Hearing needs: No Vision needs: No Questionnaire Thrive Questionnaire Date Thrive assessed: 02/06/24 CARRIE-7 AMB Questionnaire CARRIE-7 Date CARRIE - 7 assessed: 02/06/24 Source: Developed by Drs. Dae Forman, Rin Mallory, Anuj Macdonald and colleagues, with an educational andrzej from [employer]. Review of Systems Const All systems reviewed & are unremarkable except as noted in HPI and below Card Denies chest pain at rest, Denies chest pain with activity, Denies edema, Denies irregular heart rhythm, Denies claudication, Denies dyspnea, Denies dyspnea on exertion, Denies orthopnea, Denies paroxysmal nocturnal dyspnea and Denies slow heart rate Resp Reports cough, Denies dyspnea and Denies dyspnea on exertion GI Denies abdominal pain, Denies change in bowel habits, Denies excessive flatus, Denies nausea and Denies vomiting Physical exam (Primary Care) Vital Signs: Last Vital Signs BP 150/90 H 06/10/24 08:19 BMI result Body Mass Index 24.6 Tobacco/Smoking Status: Tobacco use Status Tobacco use date assessed 02/06/24 06/10/24 08:25 Patient Tobacco Use Status Never used Tobacco 06/10/24 08:25 e-Cigarette/Vaping Use Never Used 06/10/24 08:25 Thrive Assessment: Date of Thrive Assessment Date Thrive assessed 02/06/24 06/10/24 08:25 Resp Effort & Inspection: normal respiratory effort Auscultation: clear to auscultation bilaterally Cardio Jugular venous distension: no JVD Rate: regular rate Rhythm: regular rhythm Heart sounds: S1 normal heart sound present and S2 normal heart sound present Extrem General: Yes full ROM Results AMB Hemoglobin A1c AMB Hemoglobin A1c 6.4 % Last Edit by KATHY Weiss on 06/10/24 08:28 Results Reviewed Results Reviewed: Laboratory Last Values Hgb A1c (Clinic) 6.4 % (4.0-6.0) H 06/10/24 08:18 Assessment and Plan Assessment & Plan (1) Mild recurrent major depression: Code(s): F33.0 - Major depressive disorder, recurrent, mild Plan: Continue fluoxetine. 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 A1c goal is equal or less than 7%. (3) Pure hypercholesterolemia: Code(s): E78.00 - Pure hypercholesterolemia, unspecified Plan: Restart pravastatin. LDL goal is less than 70. Recheck lipid panel in 4 months. (4) Essential hypertension: Code(s): I10 - Essential (primary) hypertension Plan: Discontinue lisinopril. Start amlodipine. Recheck blood pressure in 3 weeks by nurse navigator. Blood pressure goal is equal or less than 130/80. (5) Hypothyroid: Code(s): E03.9 - Hypothyroidism, unspecified Qualifiers: Hypothyroidism type: acquired Qualified Code(s): E03.9 - Hypothyroidism, unspecified Plan: Continue Synthroid. (6) Osteoporosis: Code(s): M81.0 - Age-related osteoporosis without current pathological fracture Qualifiers: Osteoporosis type: age-related Presence of current pathological fracture: without current pathological fracture Qualified Code(s): M81.0 - Age-related osteoporosis without current pathological fracture Plan: Follow-up with rheumatology. Start Reclast. Repeat DEXA scan 2024. Orders: Orders AMB Hemoglobin A1c Today E11.65 - Type 2 diabetes mellitus with hyperglycemia Lipid Panel 4 Months E78.5 - Hyperlipidemia, unspecified Microalbumin, Random (w Creat) 4 Months E11.9 - Type 2 diabetes mellitus without complications Thyroid Stimulating Hormone 4 Months E03.9 - Hypothyroidism, unspecified Comprehensive [place]. Panel Fast 4 Months E11.65 - Type 2 diabetes mellitus with hyperglycemia Medications: New amlodipine 2.5 mg PO DAILY 90 tabs 1RF 90 days doxycycline hyclate 100 mg PO BID 10 tabs 0RF 5 days Refilled pravastatin 40 mg PO BEDTIME 90 tabs 1RF 90 days E78.00 - Pure hypercholesterolemia, unspecified trazodone 100 mg PO BEDTIME 90 tabs 2RF 90 days risperidone 4 mg PO DAILY 90 tabs 1RF 90 days R79.89 - Other specified abnormal findings of blood chemistry fluoxetine 20 mg PO DAILY 90 caps 1RF 90 days Discontinued lisinopril Discontinued Reason: Patient Completed Course 5 mg PO DAILY 90 days 90 tabs 1RF I10 - Essential (primary) hypertension Coding Level of Care Code Est Pt Level 4 (56226) Complex EM visit Add On G2211 Diagnoses Mild recurrent major depression F33.0 Type 2 diabetes mellitus with hyperglycemia, without long-term current use of insulin E11.65 Diabetes mellitus type: type 2 Diabetes mellitus prison insulin use: without prison use Diabetes mellitus complication status: with hyperglycemia Pure hypercholesterolemia E78.00 Essential hypertension I10 Acquired hypothyroidism E03.9 Hypothyroidism type: acquired Age-related osteoporosis without current pathological fracture M81.0 Osteoporosis type: age-related Presence of current pathological fracture: without current pathological fracture Time Spent (min) 25
[2024-06-10 08:19] VITALS: BP 150/90; BMI 24.6
== END 2024-06-10 08:42 | disposition home or self-care (01) ==
PROVIDERS: PCP Internal Medicine; Visit Provider Internal Medicine
DX: F33.0 Major depressive disorder, recurrent, mild (principal); E11.65 Type 2 diabetes mellitus with hyperglycemia; E78.00 Pure hypercholesterolemia, unspecified; I10 Essential (primary) hypertension; E03.9 Hypothyroidism, unspecified; M81.0 Age-related osteoporosis without current pathological fracture
CPT/HCPCS: 83036; 99214; G2211

== ENCOUNTER 2024-07-01 15:07 | Outpatient (AMB) | payer MEDICARE, SELFPAY ==
--- NOTE | 2024-07-01 15:36 | A.OFFVIS_ITS ---
Vital Signs 07/01/24 15:39 Height 5 ft 1 in Weight 131 lb BMI 24.7 Intake Visit Reasons: Follow Up-SEE COMMENTS Intake Note: Patient presents for follow up. Allergies cetirizine Allergy (Intermediate, Verified 07/01/24 15:47) inadequate response montelukast Allergy (Intermediate, Verified 07/01/24 15:47) inadequate response Penicillins [PENICILLINS] Allergy (Intermediate, Verified 07/01/24 15:47) ITCHY HIVES levothyroxine Adverse Reaction (Intermediate, Verified 07/01/24 15:47) dizziness, weakness Tussin (?) Adverse Reaction (Intermediate, Uncoded 07/01/24 15:47) rash,urticaria Medication List - Last Reconciled 07/01/24 by ERENDIRA Babin amlodipine 2.5 mg PO DAILY 90 days blood sugar diagnostic (FreeStyle Lite Strips) Use 1 test strip once a day calcium carbonate 600 mg PO BID 90 days cholecalciferol (vitamin D3) 25 mcg PO DAILY 30 days diclofenac sodium 1% 2 grams topical QID PRN 30 days doxycycline hyclate 100 mg PO BID 5 days fluoxetine 20 mg PO DAILY 90 days fluticasone propionate 0.05% 1 appl topical DAILY 30 days magnesium oxide 400 mg PO BEDTIME 30 days metformin 850 mg PO BID 90 days pravastatin 40 mg PO BEDTIME 90 days risperidone 4 mg PO DAILY 90 days Synthroid (levothyroxine) 50 mcg PO DAILY 90 days NS trazodone 100 mg PO BEDTIME 90 days HPI Comments Details: 73-yr-old female presents for f/u visit. Pt is accompanied by her , and son, Bennett, who joins via telephone. Pt denies any significant interval medical changes. Pt continues to have forgetfulness. She may put a atkinson away in the refrigerator. Sleep still varies. May still take daytime naps. States trazodone was decreased to 50mg prn- and uses only prn. She is complaint w/ risperdal 4mg- started 30 +yrs ago. son alluded to remote h/o of marked depression, but states now it is used to prevent her from being sad. Pt no longer has a psychiatrist. In-lab PSG did not show any evidence for sleep apnea or PLMS. [facility] Medical History Snoring Mild recurrent major depression Thyroid nodule Subclinical hypothyroidism Elevated TSH Diabetes mellitus Insomnia Depression Pure hypercholesterolemia Hypovitaminosis D Surgical History History of colonoscopy History of removal of cyst History of left breast biopsy History of hemorrhoidectomy Family History Father Myocardial infarction Mother No problems noted. Family/Other FH: mental illness Mental health disorder Social History Housing: House Alcohol intake: never Patient Tobacco Use Status: Never used Tobacco e-Cigarette/Vaping Use: Never Used Second Hand Smoke Exposure: No service: No Current occupational status: unemployed Cognitive needs: No Hearing needs: No Vision needs: No Physical Exam Vital Signs: BMI result Body Mass Index 24.7 Const General: cooperative and no acute distress Orientation/consciousness: patient oriented x3 Resp Effort & Inspection: normal respiratory effort and able to speak in complete sentences Neuro General: patient oriented x3 Cranial nerves: Yes CN's II-XII intact bilaterally Cognition (Neuro): normal cognition Psych Appearance: grossly normal Mental Status: mental status grossly normal Speech and movement: Normal speech and movement present Affect: normal affect Attitude: cooperative Quality Reporting (2019) Adult ([facility] 138/01/02/69) Smoking risk assessment performed?: Yes Patient Tobacco Use Status: Never used Tobacco Assessment & Plan Assessment & Plan (1) Cognitive impairment: Comment: mild . she did well on testing- MMSE 28. Code(s): R41.89 - Other symptoms and signs involving cognitive functions and awareness Category: Medical (2) Mild recurrent major depression: Code(s): F33.0 - Major depressive disorder, recurrent, mild Category: Medical Plan Reviewed in-lab PSG- normal. 12/26/23, Brain MRI: No acute intracranial findings. Mild chronic microangiopathy. There is global cerebral volume loss without mesial temporal lobe predilection. The pattern of volume loss is not specific for a mesial temporal focus neurodegenerative process. Pt encouraged to increase regular physical activity, avoid daytime naps, late day caffeine intake. Will add labs to pt's next bloodwork panel to round out cognitive work-up. Will request psychiatric consult- ? GDR trial of Risperidone. Will request baseline neuro-psych eval- pt advised there is an extended wait list for this testing. Futire considerations- Trial of neuroprotecive tx. Orders: Orders Vitamin B12 and Folate Today F33.0 - Major depressive disorder, recurrent, mild, R41.89 - Other symptoms and signs involving cognitive functions and awareness, R79.89 - Other specified abnormal findings of blood chemistry Methylmalonic Acid Today F33.0 - Major depressive disorder, recurrent, mild, R41.89 - Other symptoms and signs involving cognitive functions and awareness, R79.89 - Other specified abnormal findings of blood chemistry Homocysteine Today F33.0 - Major depressive disorder, recurrent, mild, R41.89 - Other symptoms and signs involving cognitive functions and awareness, R79.89 - Other specified abnormal findings of blood chemistry Rheumatoid Factor Today F33.0 - Major depressive disorder, recurrent, mild, R41.89 - Other symptoms and signs involving cognitive functions and awareness, R79.89 - Other specified abnormal findings of blood chemistry Referrals Neuropsychiatry Referral F33.0 - Major depressive disorder, recurrent, mild, R41.89 - Other symptoms and signs involving cognitive functions and awareness Psychiatry Referral F33.0 - Major depressive disorder, recurrent, mild, R41.89 - Other symptoms and signs involving cognitive functions and awareness Coding Level of Care Code Est Pt Level 4 (04588) Diagnoses Cognitive impairment R41.89 Mild recurrent major depression F33.0
[2024-07-01 15:39] VITALS: BMI 24.7
== END 2024-07-01 16:38 | disposition home or self-care (01) ==
PROVIDERS: PCP Internal Medicine; Visit Provider Nurse Practitioner Family
DX: R41.89 Other symptoms and signs involving cognitive functions and awareness (principal); F33.0 Major depressive disorder, recurrent, mild
CPT/HCPCS: 99214

== ENCOUNTER → 2024-07-01 15:07 | Outpatient (BNVA) | payer MEDICARE, SELFPAY | PROVIDERS: PCP Internal Medicine; Visit Provider Nurse Practitioner Family | DX: R41.89 Other symptoms and signs involving cognitive functions and awareness (principal); F33.0 Major depressive disorder, recurrent, mild | CPT/HCPCS: 99212 ==

== ENCOUNTER 2024-09-28 07:59 | Outpatient (REF) | payer MEDICARE, SELFPAY ==
[2024-09-28 08:59] LABS: Creatinine Urine 95.96 mg/dL; Microalbum/Creatinine Ratio Ur 10.4 ug/mg cr (<30)
[2024-09-28 09:04] LABS: Alanine Aminotransferase 27 U/L (0-31); Albumin Level 4.2 g/dL (3.5-5.0); Alkaline Phosphatase 67 U/L (39-117); Anion Gap 11 (12-20); Aspartate Amino Transferase 23 U/L (5-31); Bilirubin Total 0.5 mg/dL (0.0-1.0); Blood Urea Nitrogen 14 mg/dL (9-16); Calcium 10.2 mg/dL (8.4-10.2); Carbon Dioxide 31 mmol/L (22-29); Chloride 101 mmol/L (96-108); Cholesterol 130 mg/dL (<200); Estimated Glomerular Filt Rate 55; Glucose Fasting 136 mg/dL (60-99); HDL Cholesterol 38 mg/dL (>40); LDL Cholesterol Calculated 53 mg/dL (<100); Sodium 139 mmol/L (135-145); Total Protein 6.9 g/dL (6.5-8.0); Triglycerides 195 mg/dL (<150)
[2024-09-28 09:20] LABS: Thyroid Stimulating Hormone 1.52 uIU/mL (0.32-4.0)
== END 2024-09-28 08:00 | disposition home or self-care (01) ==
LOC: HO.LAB 07:59
PROVIDERS: PCP Internal Medicine; Visit Provider Internal Medicine
DX: E11.65 Type 2 diabetes mellitus with hyperglycemia (principal); E78.5 Hyperlipidemia, unspecified; E03.9 Hypothyroidism, unspecified
CPT/HCPCS: 36415; 80053; 80061; 82043; 82570; 84443

== ENCOUNTER 2024-10-07 08:16 | Outpatient (AMB) | payer MEDICARE, SELFPAY ==
[2024-10-07 08:25] VITALS: BP 136/82; BMI 24.6
--- NOTE | 2024-10-07 08:25 | A.OFFPC_ITS ---
Vital Signs 10/07/24 08:25 Height 5 ft 1 in Weight 130 lb BMI 24.6 BP 136/82 Blood Pressure Location Lt brachial Position Sitting Intake Visit Reasons: annual Intake Note: Patient here for an annual physical exam Licensed Final Expense Agents Required: No Accompanied by: Self / Same As Patient Allergies cetirizine Allergy (Intermediate, Verified 10/07/24 08:39) inadequate response montelukast Allergy (Intermediate, Verified 10/07/24 08:39) inadequate response Penicillins [PENICILLINS] Allergy (Intermediate, Verified 10/07/24 08:39) ITCHY HIVES levothyroxine Adverse Reaction (Intermediate, Verified 10/07/24 08:39) dizziness, weakness Tussin (?) Adverse Reaction (Intermediate, Uncoded 10/07/24 08:39) rash,urticaria Medication List - Last Reconciled 10/07/24 by Keke Ivy MD amlodipine 2.5 mg PO DAILY 90 days blood sugar diagnostic (FreeStyle Lite Strips) Use 1 test strip once a day calcium carbonate 600 mg PO BID 90 days cholecalciferol (vitamin D3) 25 mcg PO DAILY 30 days diclofenac sodium 1% 2 grams topical QID PRN 30 days fluoxetine 20 mg PO DAILY 90 days fluticasone propionate 0.05% 1 appl topical DAILY 30 days magnesium oxide 400 mg PO BEDTIME metformin 850 mg PO BID 90 days pravastatin 40 mg PO BEDTIME 90 days risperidone 4 mg PO DAILY 90 days Synthroid (levothyroxine) 50 mcg PO DAILY 90 days NS trazodone 100 mg PO BEDTIME 90 days Tobacco use date assessed: 02/06/24 Fall risk assessment: No Falls in past year Last assessed Fall Risk: 10/07/24 Dental Screening Dental Screen Date: 10/07/24 Did you have a dental visit in the last 12 months?: No Did you have a dental problem in the last 6 months where you did not have access to dental care?: No Was dental information given to patient?: Patient has dentist HPI HPI Comments History of Present Illness Details The patient is a 74-year-old female presenting for an annual physical examination. Her medical history includes osteoporosis, diagnosed in October 2023, requiring follow-up bone densitometry scheduled for October 2025. Osteoporosis is follow by Rheumatology and on Reclast. Previous screenings include a normal mammogram in April 2024 and a colonoscopy in 2018, which was normal, hence the next one is scheduled for 2027. Vaccinations are current, including Tdap and pneumococcal vaccines. The patient had a recent influenza vaccination a few weeks ago. Her hypertension presented with a previous measurement of 185/96, now stabilized at 126/80 with amlodipine 2.5 mg daily. There have been allergic reactions reported to cetirizine, montelukast, and penicillin, and an adverse response to levothyroxine causing dizziness and weakness. A skin rash has been attributed to acetaminophen. The patient is on multiple medications including metformin for diabetes, with a previous A1C of 6.4%, currently improved to 6.1%. Her fasting glucose was 136. Hyperlipidemia is being managed successfully with pravastatin, as evidenced by an LDL level of 53. Depression with anxiety is stable currently without significant symptoms, per PHQ-9 results. - Mammogram: Normal (April 2024) - Bone Density: Diagnosed Osteoporosis ( October 2023) - Colonoscopy: Normal (2017); next due 2 028 - Vaccinations: Up to date (Tdap and pne umonia vaccine) - Flu shot: Received recently - PHQ-9: Negative for depression - Diabetic eye exam: Completed within e past month [facility] Medical History (Updated 10/07/24 @ 08:58 by Keke Ivy MD) Snoring Mild recurrent major depression Thyroid nodule Subclinical hypothyroidism Elevated TSH Diabetes mellitus Insomnia Depression Pure hypercholesterolemia Hypovitaminosis D Surgical History History of colonoscopy History of removal of cyst History of left breast biopsy History of hemorrhoidectomy Family History Father Myocardial infarction Mother No problems noted. Family/Other FH: mental illness Mental health disorder Social History Housing: House Alcohol intake: never Patient Tobacco Use Status: Never used Tobacco e-Cigarette/Vaping Use: Never Used Second Hand Smoke Exposure: No service: No Current occupational status: unemployed Cognitive needs: No Hearing needs: No Vision needs: No Questionnaire Thrive Questionnaire Date Thrive assessed: 02/06/24 I am a: Patient What is your living situation today?: I have a steady place to live Within the past 12 months, did the food you bought not last and you didn't have the money to get more?: I choose not to answer this question Within the past 12 months, did you worry whether your food would run out before you got money to buy more?: I choose not to answer this question Do you have trouble paying for medicines?: I choose not to answer this question Do you have trouble getting transportation to medical appointments?: I choose not to answer this question Do you have trouble paying your heating and electricity bill?: I choose not to answer this question Do you have trouble taking care of your child, family member or friend?: I choose not to answer this question Do you have trouble with day-to-day activities such as bathing, preparing meals, shopping, managing finances, etc.?: I choose not to answer this question Are you currently unemployed and looking for a job?: I choose not to answer this question Are you interested in more education?: I choose not to answer this question Please select the resources that you would like help with: None Currently or been in a relationship where the following occur: I choose not to answer THRIVE Score: 0 AUDIT C Alcohol Use Questionnaire (AUDIT-C) 1. How often do you have a drink containing alcohol?: Never Total Score: 0 CARRIE-7 AMB Questionnaire CARRIE-7 Date CARRIE - 7 assessed: 02/06/24 Feeling nervous, anxious, or on edge: 0 = Not at all Not being able to stop or control worryin = Not at all Worrying too much about different things: 0 = Not at all Trouble relaxin = Not at all Being so restless that it is hard to sit still: 0 = Not at all Becoming easily annoyed or irritable: 0 = Not at all Feeling afraid as if something awful might happen: 0 = Not at all Total CARRIE-7 score (0-4 normal; 5-9 mild; 10-14 moderate; 15-21 severe): 0 Source: Developed by Drs. Dae Forman, Rin Mallory, Anuj Macdonald and colleagues, with an educational andrzej from [employer]. Review of Systems Const All systems reviewed & are unremarkable except as noted in HPI and below Card Denies chest pain at rest, Denies chest pain with activity, Denies edema, Denies irregular heart rhythm, Denies claudication, Denies dyspnea, Denies dyspnea on exertion, Denies orthopnea, Denies paroxysmal nocturnal dyspnea and Denies slow heart rate Resp Denies cough, Denies dyspnea and Denies dyspnea on exertion GI Denies abdominal pain, Denies change in bowel habits, Denies excessive flatus, Denies nausea and Denies vomiting Denies urinary incontinence, Denies urinary hesitancy and Denies urinary urgency Physical exam (Primary Care) Vital Signs: Last Vital Signs BP 136/82 10/07/24 08:25 BMI result Body Mass Index 24.6 Tobacco/Smoking Status: Tobacco use Status Tobacco use date assessed 02/06/24 10/07/24 08:28 Patient Tobacco Use Status Never used Tobacco 10/07/24 08:28 e-Cigarette/Vaping Use Never Used 10/07/24 08:28 Thrive Assessment: Date of Thrive Assessment Date Thrive assessed 02/06/24 10/07/24 08:28 Currently or been in a relationship where the following occur: I choose not to answer HENSD Head: Yes normal to inspection, Yes normocephalic and Yes atraumatic Ears: external ears normal Eyes General: appearance normal, both eyes and all related structures Eyelids: Yes eyelids normal Conjunctivae: conjunctivae normal Neck Neck: Yes normal visual inspection and Yes supple Resp Effort & Inspection: normal respiratory effort Auscultation: clear to auscultation bilaterally Cardio Jugular venous distension: no JVD Rate: regular rate Rhythm: regular rhythm Heart sounds: S1 normal heart sound present and S2 normal heart sound present GI Inspection: Yes normal to inspection Palpation (GI): Soft to palpation and nontender Auscultation: normal bowel sounds Skin General skin exam: no rashes or lesions noted Neuro General: no focal motor deficits Extrem General: Yes full ROM Psych Appearance: grossly normal Results AMB Hemoglobin A1c AMB Hemoglobin A1c 6.1 % Last Edit by KATHY Weiss on 10/07/24 08:3 3 Results Reviewed Results Reviewed: Laboratory Last Values Hgb A1c (Clinic) 6.1 % (4.0-6.0) H 10/07/24 08:22 Coding Level of Care Code Est Pt Prev Care >65y(68292) Diagnoses Physical exam Z00.00 Mild recurrent major depression F33.0 Type 2 diabetes mellitus with hyperglycemia, without long-term current use of insulin E11.65 Diabetes mellitus type: type 2 Diabetes mellitus halfway insulin use: without technician terminal and repeater use Diabetes mellitus complication status: with hyperglycemia Time Spent (min) 31 Assessment & Plan Assessment & Plan (1) Physical exam: Code(s): Z00.00 - Encounter for general adult medical examination without abnormal findings Category: Medical (2) Mild recurrent major depression: Code(s): F33.0 - Major depressive disorder, recurrent, mild Category: Medical (3) Diabetes mellitus: Code(s): E11.9 - Type 2 diabetes mellitus without complications Category: Medical Qualifiers: Diabetes mellitus type: type 2 Diabetes mellitus technician terminal and repeater insulin use: without halfway use Diabetes mellitus complication status: with hyperglycemia Qualified Code(s): E11.65 - Type 2 diabetes mellitus with hyperglycemia Plan 1. - Hypertension: - Allergic reactions: Avoid cetirizine, montelukast, and penicillin. - Adverse reactions: Substitute other medications for acetaminophen due to rash. - Type 2 Diabetes Mellitus: Continue metformin; maintain diet and exercise for glucose control. - Hyperlipidemia: Continue pravastatin; repeat lipid panel in four months. - Depression with Anxiety: Continue fluoxetine 20 mg daily; reassess as needed. Patient was informed and verbally consented to the use of an ambient scribe for clinic note documentation during this visit. During the visit, we reviewed the patient's current medical conditions and management plans. For osteoporosis, I recommended adhering to current medication with a reevaluation using bone densitometry in October 2025. The patient's hypertension is well-managed with amlodipine, and we discussed maintaining the same treatment. We reviewed allergies and noted the requirement for the continued avoidance of offending agents. For diabetes management, the patient will continue metformin with diet and lifestyle considerations. The patient's lipid levels are currently at target with pravastatin therapy, and we plan a follow-up in four months. Depression with anxiety is stable on the current regim en of fluoxetine. We agreed to continue monitoring at future visits. Orders: Orders AMB Hemoglobin A1c Today E11.65 - Type 2 diabetes mellitus with hyperglycemia Patient Instructions: - Continue current medication regimen as prescribed. - Schedule bone densitometry for October 2025. - Avoid medications causing allergic reactions and adverse events. - Maintain a healthy diet and regular exercise for diabetes management. - Repeat lipid panel and follow-up in four months. - Monitor blood pressure regularly and follow antihypertensive treatment protocol. - Report any new or worsening symptoms, particularly related to allergies or adverse reactions to medications.
== END 2024-10-07 08:57 | disposition home or self-care (01) ==
PROVIDERS: PCP Internal Medicine; Visit Provider Internal Medicine
DX: Z00.00 Encounter for general adult medical examination without abnormal findings (principal); F33.0 Major depressive disorder, recurrent, mild; E11.65 Type 2 diabetes mellitus with hyperglycemia

== ENCOUNTER → 2024-10-07 08:16 | Outpatient (BNVA) | payer MEDICARE, SELFPAY | PROVIDERS: PCP Internal Medicine; Visit Provider Internal Medicine | DX: Z00.00 Encounter for general adult medical examination without abnormal findings (principal); E11.65 Type 2 diabetes mellitus with hyperglycemia; F33.0 Major depressive disorder, recurrent, mild | CPT/HCPCS: 83036; 99397 ==

== ENCOUNTER 2024-11-16 15:33 | Outpatient (AMB) | payer MEDICARE, SELFPAY ==
--- NOTE | 2024-11-16 16:14 | MHC.OFFWIV ---
Intake Vital Signs 11/16/24 16:15 Weight 132 lb BP 132/80 Blood Pressure Location Rt brachial Position Sitting Pulse 93 Pulse Source Pulse Oximeter Temp 98.1 F Temp Source Oral Pulse Oximetry (%) 96 Oxygen Delivery Method Room Air Intake Visit Reasons: EP Cough, Chills Intake Note: Patient here for cough, chills and bilat ear pain that has been present for about 1 week. Patient Tobacco Use Status: Never used Tobacco Allergies cetirizine Allergy (Intermediate, Verified 11/16/24 16:17) inadequate response montelukast Allergy (Intermediate, Verified 11/16/24 16:17) inadequate response Penicillins [PENICILLINS] Allergy (Intermediate, Verified 11/16/24 16:17) ITCHY HIVES levothyroxine Adverse Reaction (Intermediate, Verified 11/16/24 16:17) dizziness, weakness Tussin (?) Adverse Reaction (Intermediate, Uncoded 11/16/24 16:17) rash,urticaria Do you need a note to return to daycare/school/sports/work: No PFSH Medical History Snoring Mild recurrent major depression Thyroid nodule Subclinical hypothyroidism Elevated TSH Diabetes mellitus Insomnia Depression Pure hypercholesterolemia Hypovitaminosis D Surgical History History of colonoscopy History of removal of cyst History of left breast biopsy History of hemorrhoidectomy Family History Father Myocardial infarction Mother No problems noted. Family/Other FH: mental illness Mental health disorder Social History Housing: House Alcohol intake: never Patient Tobacco Use Status: Never used Tobacco e-Cigarette/Vaping Use: Never Used Second Hand Smoke Exposure: No service: No Current occupational status: unemployed Cognitive needs: No Hearing needs: No Vision needs: No Physical Exam Vital Signs: Last Vital Signs Temp 98.1 F 11/16/24 16:15 Pulse 93 11/16/24 16:15 BP 132/80 11/16/24 16:15 Pulse Ox 96 11/16/24 16:15 Oxygen Delivery Method Room Air 11/16/24 16:15 Assessment & Plan Assessment & Plan (1) Upper respiratory tract infection: Code(s): J06.9 - Acute upper respiratory infection, unspecified Plan: History of Present Illness The patient is a 74-year-old female presenting with chest pain and coughing. The patient reports experiencing painful symptoms for several days. She describes it as a persistent chest discomfort associated with coughing. She denies any fever and has not been tested for COVID-19. She reports a cough producing blood, which exacerbates the pain. There is no noted recent illness in household members. The patient has a history of diabetes mellitus type 2 but is not currently on medication for it. Previously, she attempted self-treatment with DayQuil and NyQuil for four to five days, which did not alleviate the symptoms. Social History Review of Systems - Respiratory: Reports chest pain and productive cough with blood. - General: Denies fever. Physical Exam General: Appearance normal, both eyes and all related structures Nutritional Appearance: Well nourished Orientation/consciousness: Patient oriented x3 Limitations: No limitations Head: Normal to inspection Neck: Normal visual inspection Chest: Pain on palpation of entire chest wall Respiratory: Normal respiratory effort Neurology: Patient oriented x3 Results Plan - Prescribe antibiotics for five days to treat bronchitis. - Prescribe prednisone for cough management. - Instruct the patient to take two Tylenol every six hours for pain relief. - Allow concurrent use of prednisolone with current medications due to non-treatment of diabetes. Patient was informed and verbally consented to the use of an ambient scribe for clinic note documentation during this visit. Discussion Notes I discussed with Ms. Bettencourt that her symptoms are indicative of bronchitis and prescribed antibiotics to treat the infection. I advised on the use of prednisone to alleviate the cough. The patient expressed that previous remedies such as DayQuil and NyQuil were ineffective, so we have adjusted her treatment accordingly. She was informed about taking Tylenol for pain management regularly but not to exceed the recommended dosage. I confirmed that both antibiotics and prednisone could be used safely together despite her untreated diabetes, ensuring she understood her medication plan. I explained that it might take some time for symptoms to improve and arranged for her prescriptions to be collected from [facility]. Patient Instructions - Take the prescribed antibiotics as directed: two pills today, then one pill each day for two more days. - Use prednisone as instructed for cough relief. - Take two Tylenol every six hours as needed for pain, but do not exceed this amount. - academic support specialist medications from [facility] pharmacy as they have been sent. - Monitor symptoms and if no improvement or worsening occurs, seek further medical advice. Coding Level of Care Code Est Pt Level 3 (02526) Diagnoses Upper respiratory tract infection J06.9
[2024-11-16 16:15] VITALS: BP 132/80; PULSE 93; TEMP 36.7; O2SAT 96
== END 2024-11-16 16:42 | disposition home or self-care (01) ==
PROVIDERS: PCP Internal Medicine; Visit Provider Internal Medicine
DX: J06.9 Acute upper respiratory infection, unspecified (principal)

== ENCOUNTER → 2024-11-16 15:33 | Outpatient (BNVA) | payer MEDICARE, SELFPAY | PROVIDERS: PCP Internal Medicine; Visit Provider Internal Medicine | DX: J06.9 Acute upper respiratory infection, unspecified (principal) | CPT/HCPCS: 99212 ==

== ENCOUNTER 2024-12-07 09:59 | Outpatient (AMB) | payer MEDICARE, SELFPAY ==
[2024-12-07 11:03] VITALS: BP 138/82; PULSE 83; TEMP 36.8; O2SAT 98; BMI 24.9
--- NOTE | 2024-12-07 11:03 | AM.OFFWIN_ITS ---
Intake Vital Signs 12/07/24 11:03 Height 5 ft 1 in Weight 132 lb BMI 24.9 BP 138/82 Blood Pressure Location Lt brachial Position Sitting Pulse 83 Pulse Source Pulse Oximeter Temp 98.3 F Temp Source Oral Pulse Oximetry (%) 98 Oxygen Delivery Method Room Air Intake Visit Reasons: EP sore throat, RT ear pain, sour taste in mouth Intake Note: pt is here for sore throat, right ear pain Patient Tobacco Use Status: Never used Tobacco Allergies cetirizine Allergy (Intermediate, Verified 12/07/24 11:03) inadequate response montelukast Allergy (Intermediate, Verified 12/07/24 11:03) inadequate response Penicillins [PENICILLINS] Allergy (Intermediate, Verified 12/07/24 11:03) ITCHY HIVES levothyroxine Adverse Reaction (Intermediate, Verified 12/07/24 11:03) dizziness, weakness Tussin (?) Adverse Reaction (Intermediate, Uncoded 11/16/24 16:17) rash,urticaria Do you need a note to return to daycare/school/sports/work: No HPI HPI Comments History of Present Illness Details 74 y/o female patient who presents to [facility] walk in clinic with c/o Sore- throat, sour taste, Burping and epigastric pain. Pt was seen 2 weeks ago for cough, and prescribed Z-pack. Pt does report that her cough has improved since being on Abx. [facility] Medical History (Updated 12/07/24 @ 12:55 by Kerry Tao NP) Acid reflux Snoring Mild recurrent major depression Thyroid nodule Subclinical hypothyroidism Elevated TSH Diabetes mellitus Insomnia Depression Pure hypercholesterolemia Hypovitaminosis D Surgical History History of colonoscopy History of removal of cyst History of left breast biopsy History of hemorrhoidectomy Family History Father Myocardial infarction Mother No problems noted. Family/Other FH: mental illness Mental health disorder Social History Housing: House Alcohol intake: never Patient Tobacco Use Status: Never used Tobacco e-Cigarette/Vaping Use: Never Used Second Hand Smoke Exposure: No service: No Current occupational status: unemployed Cognitive needs: No Hearing needs: No Vision needs: No Review of Systems Const All systems reviewed & are unremarkable except as noted in HPI and below Physical Exam Vital Signs: Last Vital Signs Temp 98.3 F 12/07/24 11:03 Pulse 83 12/07/24 11:03 BP 138/82 12/07/24 11:03 Pulse Ox 98 12/07/24 11:03 Oxygen Delivery Method Room Air 12/07/24 11:03 BMI result Body Mass Index 24.9 Const General: cooperative and no acute distress Nutritional Appearance: overweight Orientation/consciousness: patient oriented x3 Resp Effort & Inspection: normal respiratory effort and able to speak in complete sentences Auscultation: clear to auscultation bilaterally Cardio Heart sounds: S1 normal heart sound present and S2 normal heart sound present GI Palpation (GI): Soft to palpation, not firm, Tenderness to palpation present (GI) in the epigastrum, no guarding, not rigid, No hepatosplenomegaly present and no hernias Auscultation: normal bowel sounds Rectal Exam - Female: deferred Neuro General: patient oriented x3, gait normal and moves all extremities Psych Speech and movement: Clear speech present Results AMB Rapid Strep AMB Rapid Strep Negative Last Edit by Silvino Woodall CMA on 12/07/24 11 :27 Results Reviewed Results Reviewed: Laboratory Last Values Strep Scn [facility] Clinic Negative 12/07/24 11:26 Assessment & Plan Assessment & Plan (1) Acid reflux: Code(s): K21.9 - Gastro-esophageal reflux disease without esophagitis Qualifiers: Esophagitis presence: without esophagitis Qualified Code(s): K21.9 - Gastro-esophageal reflux disease without esophagitis Plan: Ordered Omeprazole. Take Zpack with food to GI Symptoms. (2) Sore throat: Code(s): J02.9 - Acute pharyngitis, unspecified Plan: Sore pain due to Acid reflux OTC sore throat remedies. Orders: Orders AMB Rapid Strep Screen Today Z13.9 - Encounter for screening, unspecified Medications: New omeprazole 20 mg PO BID 60 caps 0RF K21.9 - Gastro-esophageal reflux disease without esophagitis Coding Level of Care Code Est Pt Level 3 (39800) Diagnoses Gastroesophageal reflux disease without esophagitis K21.9 Esophagitis presence: without esophagitis Sore throat J02.9 Time Spent (min) 15
== END 2024-12-07 12:09 | disposition home or self-care (01) ==
PROVIDERS: PCP Internal Medicine; Visit Provider Nurse Practitioner Family
DX: K21.9 Gastro-esophageal reflux disease without esophagitis (principal); J02.9 Acute pharyngitis, unspecified; Z13.9 Encounter for screening, unspecified

== ENCOUNTER → 2024-12-07 09:59 | Outpatient (BNVA) | payer MEDICARE, SELFPAY | PROVIDERS: PCP Internal Medicine | DX: J02.9 Acute pharyngitis, unspecified (principal); K21.9 Gastro-esophageal reflux disease without esophagitis | CPT/HCPCS: 87880; 99212 ==

== ENCOUNTER 2025-01-11 15:18 | Outpatient (AMB) | payer MEDICARE, MEDICAID, SELFPAY ==
--- NOTE | 2025-01-11 15:38 | MHC.OFFVIS ---
Vital Signs 01/11/25 15:39 Height 5 ft 1 in Weight 130 lb BMI 24.6 BP 150/84 H Blood Pressure Location Rt brachial Position Sitting Pulse 63 Pulse Source Pulse Oximeter Pulse Oximetry (%) 99 Oxygen Delivery Method Room Air Intake Visit Reasons: Follow Up Flat Lock Machine Operator Required: No Flat Lock Machine Operator Services: Flat Lock Machine Operator Offered & Declined Accompanied by: Self / Same As Patient Allergies cetirizine Allergy (Intermediate, Verified 01/11/25 15:41) inadequate response montelukast Allergy (Intermediate, Verified 01/11/25 15:41) inadequate response Penicillins [PENICILLINS] Allergy (Intermediate, Verified 01/11/25 15:41) ITCHY HIVES levothyroxine Adverse Reaction (Intermediate, Verified 01/11/25 15:41) dizziness, weakness Tussin (?) Adverse Reaction (Intermediate, Uncoded 11/16/24 16:17) rash,urticaria Medication List - Last Reconciled 01/11/25 by ERENDIRA Babin amlodipine 2.5 mg PO DAILY 90 days azithromycin take 500 mg today (day 1), then 250 mg for 4 days (days 2-5) PO blood sugar diagnostic (FreeStyle Lite Strips) Use 1 test strip once a day blood sugar diagnostic (FreeStyle Lite Strips) Use 1 test strip once a day calcium carbonate 600 mg PO BID 90 days cholecalciferol (vitamin D3) 25 mcg PO DAILY 30 days ciprofloxacin-dexamethasone 0.3-0.1 % 4 drps otic (ears) BID 7 days diclofenac sodium 1% 2 grams topical QID PRN 30 days fluoxetine 20 mg PO DAILY 90 days fluticasone propionate 0.05% 1 appl topical DAILY 30 days magnesium oxide 400 mg PO BEDTIME metformin 850 mg PO BID 90 days omeprazole 20 mg PO BID pravastatin 40 mg PO BEDTIME 90 days risperidone 4 mg PO DAILY 90 days Synthroid (levothyroxine) 50 mcg PO DAILY 90 days NS trazodone 100 mg PO BEDTIME 90 days HPI Comments Details: The patient is a 74-year-old female presenting with follow-up for cognitive impairment, However she would also like to have her ears checked as she has had right greater than left bilateral ear pain for about a month following a URI. Patient is accompanied by her son. Patient reports her cognition is stable. Reports sometimes forgetting minor details. She may forget to add salt or seasoning when cooking, however she does not forget to turn off the stove or water. She does continue to pay her own bills. She states she is sleeping well with the half tab of her sleeping medication- though she can not tell me exactly what this is. Since the last visit, patient weaned herself off of Risperidone- approximately six months ago without noticeable memory deterioration or improvement. Provider noted presence of slurred speech, which patient attributes to poorly fitting dentures. She has not yet had the previously ordered neuropsychological testing- states she has not heard from [facility]. She has not done follow-up labs yet. Bilateral, right greater than left, ear pain began in November post a severe cold, without associated fever or drainage. Exam reveals red tympanic membrane. [facility] Medical History (Updated 01/11/25 @ 17:21 by ERENDIRA Babin) Acid reflux Snoring Mild recurrent major depression Thyroid nodule Subclinical hypothyroidism Elevated TSH Diabetes mellitus Insomnia Depression Pure hypercholesterolemia Hypovitaminosis D Surgical History History of colonoscopy History of removal of cyst History of left breast biopsy History of hemorrhoidectomy Family History Father Myocardial infarction Mother No problems noted. Family/Other FH: mental illness Mental health disorder Social History Housing: House Alcohol intake: never Patient Tobacco Use Status: Never used Tobacco e-Cigarette/Vaping Use: Never Used Second Hand Smoke Exposure: No service: No Current occupational status: unemployed Cognitive needs: No Hearing needs: No Vision needs: No Physical Exam Vital Signs: Last Vital Signs Pulse 63 01/11/25 15:39 BP 150/84 H 01/11/25 15:39 Pulse Ox 99 01/11/25 15:39 Oxygen Delivery Method Room Air 01/11/25 15:39 BMI result Body Mass Index 24.6 Const General: cooperative and no acute distress Orientation/consciousness: patient oriented x3 HEENT Other: Right external ear canal redness inflammation with mild exudate. Left TM shows evidence of mild effusion without erythema. Head: Yes normal to inspection Resp Effort & Inspection: normal respiratory effort and able to speak in complete sentences Neuro Other: - Appearance: Well-groomed, presents with some slurred speech attributed to dentures. - Mood/Affect: Reports no significant mood changes. - Cognition: Appears to have some memory recall difficulty for minor tasks but functions independently. - Thought Process: Logical and coherent, no suicidal or homicidal ideation. - Speech is slightly slurred, which patient attributes to her dentures. Eight improved somewhat as she repositions dentures. General: patient oriented x3 Cranial nerves: Yes CN's II-XII intact bilaterally Cognition (Neuro): normal cognition Quality Reporting (2019) Adult ([facility] 138/[birth year]/02/69) Smoking risk assessment performed?: Yes Patient Tobacco Use Status: Never used Tobacco Assessment & Plan Assessment & Plan (1) Cognitive impairment: Comment: mild . she did well on testing- MMSE 28. Code(s): R41.89 - Other symptoms and signs involving cognitive functions and awareness Category: Medical (2) Mild recurrent major depression: Code(s): F33.0 - Major depressive disorder, recurrent, mild Category: Medical (3) Acute pain of both ears: Code(s): H92.03 - Otalgia, bilateral Category: Medical Plan Discussion Notes- During the visit, we discussed the ongoing management of cognitive impairment. Continue to assess cognitive impairment and memory status. Despite the cessation of Risperidone, there were no significant memory changes. I will coordinate with [facility] for a scheduled neuropsychological evaluation. Unfortunately, there are not local neuropsychologist within patient's insurance network. Ciprodex ear drops were recommended for right> left OU ear pain and inflammation. Observe ear condition over a few days and encourage urgent care follow-up if symptoms persist. We reviewed the importance of addressing dental fitment to improve speech clarity. The need for a fasting condition for scheduled lab work was emphasized. All recommendations were agreed upon with the patient. Patient was informed and verbally consented to the use of an ambient scribe for clinic note documentation during this visit. Patient Instructions- - We will follow-up with [facility] on status of appointment for comprehensive neuropsychological evaluation. - Complete neuropsychological evaluations once scheduled. - Continue to engage in regular cognitive, social, and physical activity. - Complete the lab tests- to round out cognitive impairment workup- per instructions prior to your next visit; remember to fast as required. - Future considerations: Neuroprotective therapy. - Use Ciprodex ear drops as directed: four drops in each ear twice daily. - If ear pain worsens or does not improve, seek further evaluation immediately. - Attend a follow-up dental appointment for denture adjustments. - Contact a healthcare provider if new symptoms or concerns arise. Medications: New ciprofloxacin-dexamethasone 0.3-0.1 % bilateral ears 4 drps otic (ears) BID 7 days 7.5 mL 0RF Coding Level of Care Code Est Pt Level 4 (01971) Diagnoses Cognitive impairment R41.89 Mild recurrent major depression F33.0 Acute pain of both ears H92.03
[2025-01-11 15:39] VITALS: BP 150/84; PULSE 63; O2SAT 99; BMI 24.6
== END 2025-01-12 08:27 | disposition home or self-care (01) ==
PROVIDERS: PCP Internal Medicine; Visit Provider Nurse Practitioner Family
DX: R41.89 Other symptoms and signs involving cognitive functions and awareness (principal); F33.0 Major depressive disorder, recurrent, mild; H92.03 Otalgia, bilateral
CPT/HCPCS: 99214

== ENCOUNTER → 2025-01-11 15:18 | Outpatient (BNVA) | payer MEDICARE, MEDICAID, SELFPAY | PROVIDERS: PCP Internal Medicine; Visit Provider Nurse Practitioner Family | DX: R41.89 Other symptoms and signs involving cognitive functions and awareness (principal); H92.03 Otalgia, bilateral; F33.0 Major depressive disorder, recurrent, mild | CPT/HCPCS: 99212 ==

== ENCOUNTER 2025-01-20 08:07 | Outpatient (REF) | payer MEDICARE, MEDICAID, SELFPAY ==
[2025-01-20 09:50] LABS: Creatinine Urine 245.87 mg/dL; Microalbum/Creatinine Ratio Ur 14.6 ug/mg cr (<30)
[2025-01-20 10:01] LABS: Alanine Aminotransferase 33 U/L (0-31); Albumin Level 4.3 g/dL (3.5-5.0); Alkaline Phosphatase 64 U/L (39-117); Anion Gap 14 (12-20); Aspartate Amino Transferase 31 U/L (5-31); Bilirubin Total 0.5 mg/dL (0.0-1.0); Blood Urea Nitrogen 13 mg/dL (9-16); Calcium 9.9 mg/dL (8.4-10.2); Carbon Dioxide 27 mmol/L (22-29); Chloride 106 mmol/L (96-108); Cholesterol 145 mg/dL (<200); Estimated Glomerular Filt Rate 54; Glucose Fasting 113 mg/dL (60-99); HDL Cholesterol 36 mg/dL (>40); LDL Cholesterol Calculated 66 mg/dL (<100); Potassium 4.9 mmol/L (3.3-5.1); Sodium 142 mmol/L (135-145); Total Protein 7.5 g/dL (6.5-8.0); Triglycerides 215 mg/dL (<150)
[2025-01-20 10:17] LABS: Thyroid Stimulating Hormone 1.46 uIU/mL (0.32-4.0); Vitamin D 25-OH Total 45.4 ng/mL (>30)
[2025-01-20 10:30] LABS: Folate 10.9 ng/mL (> or = 4.0); Vitamin B12 303 pg/mL (200-900)
== END 2025-01-20 08:08 | disposition home or self-care (01) ==
LOC: HO.LAB 08:07
PROVIDERS: PCP Internal Medicine; Visit Provider Internal Medicine
DX: E11.65 Type 2 diabetes mellitus with hyperglycemia (principal); E78.5 Hyperlipidemia, unspecified; E55.9 Vitamin D deficiency, unspecified; E03.9 Hypothyroidism, unspecified; R80.9 Proteinuria, unspecified; E53.8 Deficiency of other specified B group vitamins
CPT/HCPCS: 36415; 80053; 80061; 82043; 82306; 82570; 82607; 82746; 84443

== ENCOUNTER 2025-02-09 07:57 | Outpatient (AMB) | payer MEDICARE, SELFPAY ==
--- NOTE | 2025-02-09 08:02 | MHC.PC.OV ---
Vital Signs 02/09/25 08:04 Height 5 ft 1 in Weight 122 lb BMI 23.0 BP 152/90 H Blood Pressure Location Lt brachial Position Sitting Intake Visit Reasons: dm Intake Note: Patient here for a follow up DM Police Superintendent Required: No Accompanied by: Self / Same As Patient Allergies cetirizine Allergy (Intermediate, Verified 02/09/25 08:39) inadequate response montelukast Allergy (Intermediate, Verified 02/09/25 08:39) inadequate response Penicillins [PENICILLINS] Allergy (Intermediate, Verified 02/09/25 08:39) ITCHY HIVES levothyroxine Adverse Reaction (Intermediate, Verified 02/09/25 08:39) dizziness, weakness Tussin (?) Adverse Reaction (Intermediate, Uncoded 02/09/25 08:39) rash,urticaria Medication List - Last Reconciled 02/09/25 by Keke Ivy MD amlodipine 2.5 mg PO DAILY 90 days blood sugar diagnostic (FreeStyle Lite Strips) Use 1 test strip once a day blood sugar diagnostic (FreeStyle Lite Strips) Use 1 test strip once a day calcium carbonate 600 mg PO BID 90 days cholecalciferol (vitamin D3) 25 mcg PO DAILY 30 days diclofenac sodium 1% 2 grams topical QID PRN 30 days fluoxetine 20 mg PO DAILY 90 days fluticasone propionate 0.05% 1 appl topical DAILY 30 days magnesium oxide 400 mg PO BEDTIME metformin 850 mg PO BID 90 days omeprazole 20 mg PO BID pravastatin 40 mg PO BEDTIME 90 days risperidone 4 mg PO DAILY 90 days Synthroid (levothyroxine) 50 mcg PO DAILY 90 days NS trazodone 100 mg PO BEDTIME 90 days Tobacco use date assessed: 02/09/25 Fall risk assessment: No Falls in past year Last assessed Fall Risk: 02/09/25 Dental Screening Dental Screen Date: 02/09/25 Did you have a dental visit in the last 12 months?: Yes Did you have a dental problem in the last 6 months where you did not have access to dental care?: No Was dental information given to patient?: Patient has dentist HPI HPI Comments History of Present Illness Details The patient is a 74-year-old female presenting with concerns of elevated blood pressure and gastrointestinal discomfort. She has a prescribed regimen of amlodipine for hypertension. Recent readings indicate an increase in her blood pressure from what is typically observed, prompting today's consultation. The exact time frame of this elevation is not delineated in the available history. The patient also reports experiencing gastrointestinal pain, describing it as a burning sensation predominantly felt in the stomach. The symptoms seem heightened after the intake of omeprazole and pravastatin, leading to their discontinuation. She mentions issues with meal consumption due to stomach discomfort, reflecting on her quality of life and nutritional intake. The onset of these symptoms was not precisely dated, nor was their impact on patient weight documented during the conversation. She has encountered side effects with multiple medications, having a history of hives with penicillin, dizziness with levothyroxine, and rash from [place]. Additionally, she faces bilateral ear discomfort, involved with persistent symptoms and historical findings of blackened spots in her ears evaluated last by ENT professionals in November. She is currently on various medications, including medication for cholesterol and depression. [facility] Medical History Acid reflux Snoring Mild recurrent major depression Thyroid nodule Subclinical hypothyroidism Elevated TSH Diabetes mellitus Insomnia Depression Pure hypercholesterolemia Hypovitaminosis D Surgical History History of colonoscopy History of removal of cyst History of left breast biopsy History of hemorrhoidectomy Family History Father Myocardial infarction Mother No problems noted. Family/Other FH: mental illness Mental health disorder Social History Housing: House Alcohol intake: never Patient Tobacco Use Status: Never used Tobacco e-Cigarette/Vaping Use: Never Used Second Hand Smoke Exposure: No service: No Current occupational status: unemployed Cognitive needs: No Hearing needs: No Vision needs: No Questionnaire PHQ-9 Over the last 2 weeks, how often have you been bothered by any of the following problems? 1. Little interest or pleasure in doing things: not at all 2. Feeling down, depressed, or hopeless: not at all 3. Trouble falling or staying asleep, or sleeping too much: not at all 4. Feeling tired or having little energy: not at all 5. Poor appetite or overeating: not at all 6. Feeling bad about yourself - or that you are a failure or have let yourself or your family down: not at all 7. Trouble concentrating on things, such as reading the newspaper or watching television: not at all 8. Moving or speaking so slowly that other people could have noticed. Or the opposite - being so fidgety or restless that you have been moving around a lot more than usual: not at all 9. Thoughts that you would be better off or of hurting yourself in some way: not at all Total score: 0 Depression Screening Interpretation: Negative Depression Screening Done: Yes 78220 - PHQ-9 Billing: Yes Source: Developed by Drs. Dae Forman, Rin Mallory, Anuj Macdonald and colleagues, with an educational andrzej from [employer]. Thrive Questionnaire Date Thrive assessed: 02/09/25 I am a: Patient What is your living situation today?: I have a steady place to live Within the past 12 months, did the food you bought not last and you didn't have the money to get more?: Never true Within the past 12 months, did you worry whether your food would run out before you got money to buy more?: Never true Do you have trouble paying for medicines?: No Do you have trouble getting transportation to medical appointments?: No Do you have trouble paying your heating and electricity bill?: No Do you have trouble taking care of your child, family member or friend?: No Do you have trouble with day-to-day activities such as bathing, preparing meals, shopping, managing finances, etc.?: No Are you currently unemployed and looking for a job?: No Are you interested in more education?: No Please select the resources that you would like help with: None Currently or been in a relationship where the following occur: No concerns reported THRIVE Score: 0 AUDIT C Alcohol Use Questionnaire (AUDIT-C) 1. How often do you have a drink containing alcohol?: Never Total Score: 0 CARRIE-7 AMB Questionnaire CARRIE-7 Date CARRIE - 7 assessed: 02/09/25 Feeling nervous, anxious, or on edge: 0 = Not at all Not being able to stop or control worryin = Not at all Worrying too much about different things: 0 = Not at all Trouble relaxin = Not at all Being so restless that it is hard to sit still: 0 = Not at all Becoming easily annoyed or irritable: 0 = Not at all Feeling afraid as if something awful might happen: 0 = Not at all Total CARRIE-7 score (0-4 normal; 5-9 mild; 10-14 moderate; 15-21 severe): 0 Source: Developed by Drs. Dae Forman, Rin Mallory, Anuj Macdonald and colleagues, with an educational andrzej from [employer]. CARRIE-7 Assessment Billing CARRIE-7 Assessment Tool: CARRIE-7 Assessment 35003 Review of Systems Const All systems reviewed & are unremarkable except as noted in HPI and below Card Denies chest pain at rest, Denies chest pain with activity, Denies edema, Denies irregular heart rhythm, Denies claudication, Denies dyspnea, Denies dyspnea on exertion, Denies orthopnea, Denies paroxysmal nocturnal dyspnea and Denies slow heart rate Resp Denies cough, Denies dyspnea and Denies dyspnea on exertion GI Denies abdominal pain, Denies change in bowel habits, Denies excessive flatus, Denies nausea and Denies vomiting Denies urinary incontinence, Denies urinary hesitancy and Denies urinary urgency Physical exam (Primary Care) Vital Signs: Last Vital Signs BP 152/90 H 02/09/25 08:04 BMI result Body Mass Index 23.0 Tobacco/Smoking Status: Tobacco use Status Tobacco use date assessed 02/09/25 02/09/25 08:15 Patient Tobacco Use Status Never used Tobacco 02/09/25 08:15 e-Cigarette/Vaping Use Never Used 02/09/25 08:15 PHQ-9: PHQ-9 Score PHQ-9: Total score 0 02/09/25 09:39 Depression Screening Interpretation: Negative Thrive Assessment: Date of Thrive Assessment Date Thrive assessed 02/09/25 02/09/25 08:15 Currently or been in a relationship where the following occur: No concerns reported Resp Effort & Inspection: normal respiratory effort Auscultation: clear to auscultation bilaterally Cardio Jugular venous distension: no JVD Rate: regular rate Rhythm: regular rhythm Heart sounds: S1 normal heart sound present and S2 normal heart sound present GI Inspection: Yes normal to inspection Palpation (GI): Soft to palpation and nontender Auscultation: normal bowel sounds Extrem General: Yes full ROM Results AMB Hemoglobin A1c AMB Hemoglobin A1c 5.8 % Last Edit by KATHY Weiss on 02/09/25 08:16 Results Reviewed Results Reviewed: Laboratory Last Values Hgb A1c (Clinic) 5.8 % (4.0-6.0) 02/09/25 08:02 Coding Level of Care Code Est Pt Level 4 (89096) Complex EM visit Add On G2211 Diagnoses GERD (gastroesophageal reflux disease) K21.9 Mild recurrent major depression F33.0 Type 2 diabetes mellitus with hyperglycemia, without long-term current use of insulin E11.65 Diabetes mellitus complication status: with hyperglycemia Diabetes mellitus shelter insulin use: without shelter use Diabetes mellitus type: type 2 Pure hypercholesterolemia E78.00 Acquired hypothyroidism E03.9 Hypothyroidism type: acquired Additional Codes CARRIE-7 Assessment Billing - CARRIE-7 Assessment Tool: CARRIE-7 Assessment 09382 ([id number]) PHQ-9 - 58706 - PHQ-9 Billing: Yes ([id number]) Time Spent (min) 22 Assessment & Plan Assessment & Plan (1) GERD (gastroesophageal reflux disease): Code(s): K21.9 - Gastro-esophageal reflux disease without esophagitis Category: Medical (2) Mild recurrent major depression: Code(s): F33.0 - Major depressive disorder, recurrent, mild Category: Medical (3) Diabetes mellitus: Code(s): E11.9 - Type 2 diabetes mellitus without complications Category: Medical Qualifiers: Diabetes mellitus complication status: with hyperglycemia Diabetes mellitus termite control servicer insulin use: without termite control servicer use Diabetes mellitus type: type 2 Qualified Code(s): E11.65 - Type 2 diabetes mellitus with hyperglycemia (4) Pure hypercholesterolemia: Code(s): E78.00 - Pure hypercholesterolemia, unspecified Category: Medical (5) Hypothyroid: Code(s): E03.9 - Hypothyroidism, unspecified Category: Medical Qualifiers: Hypothyroidism type: acquired Qualified Code(s): E03.9 - Hypothyroidism, unspecified Plan To manage the patient's essential hypertension, I intend to re-evaluate her blood pressure with another machine in three weeks to ensure accuracy. For her gastrointestinal symptoms, which seem aggravated by omeprazole and pravastatin, I plan to prescribe a more effective medication to be taken before breakfast. Additionally, further investigation through gastroenterology consultation is proposed. Her ear issue requires ENT follow-up due to ongoing discomfort. An EKG will be carried out to examine cardiac health. Lastly, her depression and hypothyroidism treatments will continue with attention to possible medication side effects. All vital biochemical parameters will be monitored consistently. Patient was informed and verbally consented to the use of an ambient scribe for clinic note documentation during this visit. I discussed the current management plan for hypertension with the patient, outlining the importance of accurate home blood pressure monitoring. I emphasized the necessity of revisiting her gastrointestinal medication regimen due to her reported adverse effects and proposed a stronger medication with precise pre-meal timing to minimize discomfort. I highlighted the importance of gastroenterology input to identify any underlying gastrointestinal issues. Additionally, examination of ear symptoms by a specialist was advised due to their persistent nature. An EKG was ordered immediately, ensuring prompt cardiac evaluation. I informed her that her depression, glucose, and hypothyroid management appear stable but recommended ongoing watchfulness. The patient's understanding and consent for this plan were secured, including the idea of exploring alternative medications for better symptom control. Orders: Orders ECG 12 lead EKG Today R07.9 - Chest pain, unspecified [place] upper GI series Today K21.9 - Gastro-esophageal reflux disease without esophagitis Vitamin B12 and Folate 4 Months E53.8 - Deficiency of other specified B group vitamins, R79.89 - Other specified abnormal findings of blood chemistry Magnesium 4 Months E83.42 - Hypomagnesemia AMB Hemoglobin A1c Today E11.65 - Type 2 diabetes mellitus with hyperglycemia Lipid Panel 4 Months E78.5 - Hyperlipidemia, unspecified, R07.9 - Chest pain, unspecified Comprehensive [place]. Panel Fast 4 Months R07.9 - Chest pain, unspecified Vitamin D 25-OH Total 4 Months E55.9 - Vitamin D deficiency, unspecified, M81.0 - Age-related osteoporosis without current pathological fracture Thyroid Stimulating Hormone 4 Months E03.9 - Hypothyroidism, unspecified Referrals Gastroenterology Referral K21.9 - Gastro-esophageal reflux disease without esophagitis Medications: New pantoprazole 40 mg PO DAILY 90 tabs 1RF 90 days Refilled pravastatin 40 mg PO BEDTIME 90 tabs 1RF 90 days E78.00 - Pure hypercholesterolemia, unspecified Discontinued omeprazole Discontinued Reason: Patient Completed Course 20 mg PO BID 60 caps 0RF K21.9 - Gastro-esophageal reflux disease without esophagitis Patient Instructions: - Monitor blood pressure at home with a reliable device and return for recheck in three weeks. - Take new prescribed medication for stomach pain 30 minutes before breakfast. - Avoid foods and herbs known to aggravate reflux. - Follow up with the health education teacher as recommended. - Follow instructions for EKG at the hospital as scheduled. - Observe for persistent or worsening ear discomfort and consult ENT if needed. - Continue current depression and thyroid medications, and report any new symptoms. - Maintain regular appointment schedule for periodic lab evaluations and follow-ups.
[2025-02-09 08:04] VITALS: BP 152/90; BMI 23.0
== END 2025-02-09 08:55 | disposition home or self-care (01) ==
LOC: HO.HMCH 07:58
PROVIDERS: PCP Internal Medicine; Visit Provider Internal Medicine
DX: K21.9 Gastro-esophageal reflux disease without esophagitis (principal); F33.0 Major depressive disorder, recurrent, mild; E11.65 Type 2 diabetes mellitus with hyperglycemia; E78.00 Pure hypercholesterolemia, unspecified; E03.9 Hypothyroidism, unspecified

== ENCOUNTER → 2025-02-09 07:57 | Outpatient (BNVA) | payer MEDICARE, SELFPAY | PROVIDERS: PCP Internal Medicine; Visit Provider Internal Medicine | DX: K21.9 Gastro-esophageal reflux disease without esophagitis (principal); F33.0 Major depressive disorder, recurrent, mild; E11.65 Type 2 diabetes mellitus with hyperglycemia; E78.00 Pure hypercholesterolemia, unspecified; E03.9 Hypothyroidism, unspecified | CPT/HCPCS: 83036; 96127; 99212 ==

== ENCOUNTER → 2025-02-10 09:48 | Outpatient (REF) | payer MEDICARE, SELFPAY ==
--- NOTE | 2025-02-10 09:57 | ECG_ITS ---
Test Reason : r07.9 Blood Pressure : */* mmHG Vent. Rate : 61 BPM Atrial Rate : 61 BPM P-R Int : 150 ms QRS Dur : 82 ms QT Int : 414 ms P-R-T Axes : 42 -6 54 degrees QTcB Int : 416 ms Normal sinus rhythm Normal ECG No previous ECGs available Referred By: eKke Ivy Electronically Signed By: DAVID SOFIA
--- OUTSIDE RECORDS SUMMARY | 2025-02-10 11:10 | XMS_ITS | Patient Health Record ---
Author Organization [facility] Address [address] [place] [address] Care Team Providers Care Fox Farmer Name Role Phone Keke Coe Primary Care Provider UnavailCristian Duncan Jr Unavailable Allergies Allergen (clinical drug ingredient) Drug/Non Drug Allergy documented on EMR Reaction Allergy Type Onset Date Status Penicillin Unknown Drug Allergy Active Reason For Referral No Information Medications Medication SIG (Take, Route, Frequency, Duration) Notes Start Date End Date Status Calcium 500 MG 1 tablet with meals Orally Once a day Active metFORMIN HCl 500 MG 1 tablet with meals Orally Twice a day Active Colyte with Flavor Packs 240 GM As directed Orally Over the specified time. for 1 day(s) Active FLUoxetine HCl 20 MG 1 capsule in the mo rning Orally Once a day Active traZODone HCl 100 MG 1 tablet at bedtime Orally Once a day Active risperiDONE 4 MG 1 tablet Orally Once a day Active Pravastatin Sodium 20 MG 1 tablet Orally Once a day Active Immunizations Vaccine Route Administration Date Status Comme nts Flu vaccine no Preserv 3 and > Unknown 08/23/2015 Admin istered Flu vaccine no Preserv 3 and > Unknown 08/11/2017 Admin istered Problems Problem Type SNOMED Code ICD Code Onset Dates Problem Status W/U Status Risk Notes Problem 617279310 Colon cancer screening (Z12.11) Active confirmed Problem 441890156 Long-term curren t use of high risk medication other than anticoagulant (Z79.899) Active confirmed Problem 240279859 Gas bloat syndro me (K92.89) Active confirmed Plan Of Treatment Future Test Test Name Order Date COLONOSCOPY 01/11/2016 COLONOSCOPY 09/25/2017 Insurance Providers Payer Name Payer Address Payer Phone Subscriber Number Group Number Insured Name Patient Relationship to Insured Coverage Start Date Coverage End Date Aetna (No Referral ) [address] TONIO ESCALERA [id number] ROSALINDA LOVE Self - patient is the insured [place] [address] [place] [address] [phone] [id number] ROSALINDA LOVE Self - patient is the insured Medical (General) History Medical History History ICD Code diabetes mellitus depression elevated cholesterol Denies [place],CVA,Lung disease,renal disease Surgical History Surgery Date(Month/Year) breast biopsy
== END ==
LOC: HO.CARD 09:48
PROVIDERS: PCP Internal Medicine; Visit Provider Internal Medicine
DX: R07.9 Chest pain, unspecified (principal)
CPT/HCPCS: 93005

== ENCOUNTER → 2025-02-10 09:57 | Outpatient (BNV) | payer MEDICARE, SELFPAY | PROVIDERS: PCP Internal Medicine; Visit Provider Internal Medicine | DX: R07.9 Chest pain, unspecified (principal) | CPT/HCPCS: 93010 ==

== ENCOUNTER → 2025-03-05 08:11 | Outpatient (BNVA) | payer MEDICARE, SELFPAY | PROVIDERS: PCP Internal Medicine ==

== ENCOUNTER 2025-04-01 08:14 | Outpatient (AMB) | payer MEDICARE, SELFPAY ==
--- OUTSIDE RECORDS SUMMARY | 2025-04-01 08:23 | XMS_ITS | Patient Health Record ---
Author Organization [facility] Address [address] [place] [address] Care Team Providers Care Campus Recruiter Name Role Phone Keke Coe Primary Care Provider Unavailab Cristian Zavala Jr Unavailable Allergies Allergen (clinical drug ingredient) [...] Problem Status W/U Status Risk Notes Problem 378578358 Colon cancer screening (Z12.11) Active confirmed Problem 162782574 Long-term curren t use of high risk medication other than anticoagulant (Z79.899) Active confirmed Problem 165019231 Gas bloat syndro me (K92.89) Active confirmed Plan Of Treatment Future Test Test Name Order Date COLONOSCOPY 01/11/2016 COLONOSCOPY 09/25/2017 Next Appt Details Provider Name:Cristian velasco Jr, 05/27/2025 03:40:00 PM, [address], [address], [place], [address], Insurance Providers Payer Name Payer Address Payer Phone Subscriber Number Group Number Insured Name Patient Relationship to Insured Coverage Start Date Coverage End Date Aetna (No Referral ) [address] [place], [place] [id number] ROSALINDA LOVE Self - patient is the insured [place] [address] [place] [address] [id number] ROSALINDA LOVE Self - patient is the insured Medical (General) History Medical History History ICD Code diabetes mellitus depression elevated cholesterol Denies [place],CVA,Lung disease,renal disease Surgical History Surgery Date(Month/Year) breast biopsy
--- NOTE | 2025-04-01 09:22 | AM.OFFWIN_ITS ---
Intake Vital Signs 04/01/25 09:31 Weight 122 lb BP 136/90 H Blood Pressure Location Rt brachial Position Sitting Pulse 70 Pulse Source Pulse Oximeter Temp 98.6 F Temp Source Oral Pulse Oximetry (%) 98 Oxygen Delivery Method Room Air Intake Visit Reasons: EP nasal congestion, bilat ear pain, throat pain Intake Note: Patient here for nasal congestion, sinus pressure, post nasal drip, bilat ear pain and itchy throat that has been present for almost 1 month. Patient Tobacco Use Status: Never used Tobacco Allergies Penicillins [PENICILLINS] Allergy (Intermediate, Verified 02/09/25 08:39) ITCHY HIVES levothyroxine Adverse Reaction (Intermediate, Verified 02/09/25 08:39) dizziness, weakness Tussin (?) Adverse Reaction (Intermediate, Uncoded 02/09/25 08:39) rash,urticaria HPI HPI Comments History of Present Illness Details 74 y/o Female patient who presents to [facility] walk in clinic with c/o nasal congestion, sinus pressure, post nasal drip, B/L ear pain and itchy throat that has been present for almost 1 month. She is also c/o Bloating and burping alot - she does have occasional constipation/diarrhea. Currently using Pantoprazole with minimal relief. She c/o Dry eyes and has been using Some Eye Drops prescribed by her Eye doctor back in August. Reports no relief from the medication. [facility] Medical History (Updated 04/01/25 @ 10:14 by Kerry Tao NP) Dry eyes due to decreased tear production Seasonal allergic rhinitis Acid reflux Snoring Mild recurrent major depression Thyroid nodule Subclinical hypothyroidism Elevated TSH Diabetes mellitus Insomnia Depression Pure hypercholesterolemia Hypovitaminosis D Surgical History History of colonoscopy History of removal of cyst History of left breast biopsy History of hemorrhoidectomy Family History Father Myocardial infarction Mother No problems noted. Family/Other FH: mental illness Mental health disorder Social History Housing: House Alcohol intake: never Patient Tobacco Use Status: Never used Tobacco e-Cigarette/Vaping Use: Never Used Second Hand Smoke Exposure: No service: No Current occupational status: unemployed Cognitive needs: No Hearing needs: No Vision needs: No Review of Systems Const All systems reviewed & are unremarkable except as noted in HPI and below Physical Exam Vital Signs: Last Vital Signs Temp 98.6 F 04/01/25 09:31 Pulse 70 04/01/25 09:31 BP 136/90 H 04/01/25 09:31 Pulse Ox 98 04/01/25 09:31 Oxygen Delivery Method Room Air 04/01/25 09:31 Const General: no acute distress Nutritional Appearance: overweight Orientation/consciousness: patient oriented x3 HEENT Head: Yes normocephalic Ears: external ears normal and TM abnormal with fluid behind the TM bilateral General nose exam: Abnormal mucous membranes and turbinates present boggy and erythematous Face and sinus: Yes sinuses nontender Mouth: moist mucous membranes Throat: Yes uvula midline Eyes Pupils: Equal, round and reactive pupils present EOM: EOMs intact bilaterally Resp Effort & Inspection: normal respiratory effort and able to speak in complete sentences Auscultation: clear to auscultation bilaterally, no crackles, no rales, no rhonchi and no wheezes Cardio Heart sounds: S1 normal heart sound present and S2 normal heart sound present Neuro General: patient oriented x3 Cranial nerves: Yes Equal, round and reactive pupils present Assessment & Plan Assessment & Plan (1) GERD (gastroesophageal reflux disease): Code(s): K21.9 - Gastro-esophageal reflux disease without esophagitis Qualifiers: Esophagitis presence: without esophagitis Qualified Code(s): K21.9 - Gastro-esophageal reflux disease without esophagitis Plan: Ordered Famotidine for bedtime Continue Pantoprazole as prescribed. F/U with PCP. (2) Seasonal allergic rhinitis: Code(s): J30.2 - Other seasonal allergic rhinitis Qualifiers: Allergic rhinitis trigger: unspecified Qualified Code(s): J30.2 - Other seasonal allergic rhinitis Plan: D/C Allergra. Ordered Zyrtec BID. (3) Dry eyes due to decreased tear production: Code(s): H04.129 - Dry eye syndrome of unspecified lacrimal gland Plan: Ordered Zaditor eye drops. F/U with Eye doctor. Medications: New cetirizine (Zyrtec) 10 mg PO DAILY 30 tabs 0RF J30.2 - Other seasonal allergic rhinitis ketotifen fumarate 0.025%(0.035%) (Zaditor) administer at least 8 hours apart 1 drp ophthalmic (eye) BID 5 mL 0RF 30 days H04.129 - Dry eye syndrome of unspecified lacrimal gland famotidine 20 mg PO BEDTIME 30 tabs 0RF 30 days J30.2 - Other seasonal allergic rhinitis Coding Level of Care Code Est Pt Level 4 (03663) Diagnoses Gastroesophageal reflux disease without esophagitis K21.9 Esophagitis presence: without esophagitis Seasonal allergic rhinitis, unspecified trigger J30.2 Allergic rhinitis trigger: unspecified Dry eyes due to decreased tear production H04.129 Time Spent (min) 20
[2025-04-01 09:31] VITALS: BP 136/90; PULSE 70; TEMP 37; O2SAT 98
== END 2025-04-01 10:14 | disposition home or self-care (01) ==
PROVIDERS: PCP Internal Medicine; Visit Provider Nurse Practitioner Family
DX: K21.9 Gastro-esophageal reflux disease without esophagitis (principal); J30.2 Other seasonal allergic rhinitis; H04.129 Dry eye syndrome of unspecified lacrimal gland

== ENCOUNTER → 2025-04-01 08:14 | Outpatient (BNVA) | payer MEDICARE, SELFPAY | PROVIDERS: PCP Internal Medicine; Visit Provider Nurse Practitioner Family | DX: K21.9 Gastro-esophageal reflux disease without esophagitis (principal); J30.2 Other seasonal allergic rhinitis; H04.123 Dry eye syndrome of bilateral lacrimal glands | CPT/HCPCS: 99212 ==

== ENCOUNTER 2025-05-05 09:38 | Outpatient (REF) | payer MEDICARE, SELFPAY ==
--- NOTE | ~2025-05-05 | FL_ITS ---
EXAMINATION: XR FLUOROSCOPY UPPER GI SERIES CLINICAL INFORMATION: Patient complaining of worsening gastroesophageal reflux. Patient only speaks Burkinan, and use of an interpreter and translator was necessitated. COMPARISON: None TECHNIQUE: Fluoroscopic air contrast upper GI examination was performed utilizing standard techniques with thin and thick barium and effervescent granules. Numerous spot images were obtained. Several fluoroscopic image hold cine sequences were also obtained. FINDINGS: Mildly limited examination due to patient poor hearing and use of interpreter and translator services. UPPER GI SERIES: Lateral cine images of the oropharynx and hypopharynx demonstrate normal swallow mechanism with normal epiglottic inversion and soft palate elevation. There is laryngeal penetration present, without glottic or subglottic aspiration. No nasopharyngeal reflux present. Hypopharyngeal structures appear normal without evidence of mass or diverticulum. There was no significant cricopharyngeal achalasia. Dual and single contrast images of the esophagus demonstrate a mildly patulous caliber. Normal contour and mucosal pattern. No evidence of stricture, mass, or ulcerations identified. Esophageal peristalsis was moderately disordered, with episodic corkscrew type appearance. Small to moderate-sized type I hiatus hernia. Significant gastroesophageal reflux was noted during the examination to the level of the thoracic inlet. Mildly patulous appearing GE junction. Dual contrast and single contrast images of the stomach demonstrated normal contour without evidence of mass or ulceration. Prominence of the areae gastricae noted, suggesting mild gastritis. Contrast freely passed into the gastric antrum and duodenal bulb without delay. Single and air-contrast images of the duodenal bulb demonstrate no abnormality. The duodenal sweep has a normal appearance, course, and mucosal fold appearance. There are calcified gallstones noted within the gallbladder. FLUOROSCOPY TIME: 2 minutes, 34 seconds Number of Spot Images:8 Number of cines obtained: 8 DOSE AREA PRODUCT: 2192 uGy-m2 (microgray-meter squared) FL/FL upper GI series IMPRESSION: 1. Transient laryngeal penetration noted without glottic or subglottic aspiration. 2. Mildly patulous caliber of the esophagus. Moderately disordered esophageal peristalsis, with episodic corkscrew type appearance. 3. Mildly patulous GE junction. 4. Small to moderate-sized type I hiatus hernia. 5. Gastroesophageal reflux noted to the level of the thoracic inlet. 6. Mildly prominent areae gastricae noted, suggesting mild gastritis. 7. Calcified gallstones present. Electronically signed by: Josue Samaniego MD 05/05/2025 10:56 AM EDT RP
--- OUTSIDE RECORDS SUMMARY | 2025-05-05 10:50 | XMS_ITS | Patient Health Record ---
Author Organization [facility] Address [address] [place] [address] Care Team Providers Care Oyster Worker Name Role Phone Keke Coe Primary Care [...] Problem Status W/U Status Risk Notes Problem 187194282 Colon cancer screening (Z12.11) Active confirmed Problem 980352508 Long-term curren t use of high risk medication other than anticoagulant (Z79.899) Active confirmed Problem 447458922 Gas bloat syndro me (K92.89) Active confirmed Plan Of Treatment Future Test Test Name Order Date COLONOSCOPY 01/11/2016 COLONOSCOPY 09/25/2017 Next Appt Details Provider Name:Cristian velasco Jr, 05/27/2025 03:35:00 PM, [address], [address], [place], [address], Insurance Providers Payer Name Payer Address Payer Phone Subscriber Number Group Number Insured Name Patient Relationship to Insured Coverage Start Date Coverage End Date Aetna (No Referral ) [address] [place], [place] [id number] ROSALINDA LOVE Self - patient is the insured [place] [address] [place] [address] [id number] ROSALINDA LOVE Self - patient is the insured Medical (General) History Medical History History ICD Code diabetes mellitus depression elevated cholesterol Denies [place],CVA,Lung disease,renal disease Surgical History Surgery Date(Month/Year) breast biopsy
== END 2025-05-05 09:39 | disposition home or self-care (01) ==
LOC: HO.XRAY 09:38
PROVIDERS: PCP Internal Medicine; Visit Provider Internal Medicine
DX: K21.9 Gastro-esophageal reflux disease without esophagitis (principal)
CPT/HCPCS: 74240

== ENCOUNTER → 2025-05-05 09:40 | Outpatient (BNV) | payer MEDICARE, SELFPAY | PROVIDERS: PCP Internal Medicine; Visit Provider Radiology Diagnostic Radiology | DX: K21.9 Gastro-esophageal reflux disease without esophagitis (principal); K80.20 Calculus of gallbladder without cholecystitis without obstruction | CPT/HCPCS: 74246 ==

== ENCOUNTER 2025-05-18 08:00 | Outpatient (REF) | payer MEDICARE, SELFPAY ==
--- NOTE | ~2025-05-18 | MM_ITS ---
EXAMINATION: MM SCREENING DIGITAL BREAST TOMOSYNTHESIS, BILATERAL CLINICAL INFORMATION: Screening. Asymptomatic. COMPARISON: Mammography: Comparison is made with available priors TECHNIQUE: Digital breast mammography with tomosynthesis is performed in both the craniocaudal and mediolateral oblique views along with computer-aided detection (CAD). FINDINGS: There are scattered areas of fibroglandular density (ACR BI-RADS breast composition Category b). Left postsurgical changes are stable. There are no significant masses, abnormal calcifications, or other abnormalities. MM/MM tomosynthesis screening BI IMPRESSION: No mammographic evidence of malignancy. ASSESSMENT: BI-RADS BI-RADS 2 - Benign Findings RECOMMENDATION: Routine annual mammography screening. 1 year F/U This examination should not preclude the clinical evaluation of a suspicious palpable abnormality. This patient's information was entered into a reminder system with a target due date for their next mammogram. Electronically signed by: Myriam Bautista DO 05/31/2025 08:42 AM EDT
--- OUTSIDE RECORDS SUMMARY | 2025-05-18 08:03 | XMS_ITS | Patient Health Record ---
Author Organization [facility] Address [address] [place] [address] Care Team Providers Care One Piece Expansion Maker Hand Name Role Phone Keke Coe Primary Care [...] Problem Status W/U Status Risk Notes Problem 866800994 Colon cancer screening (Z12.11) Active confirmed Problem 453566323 Long-term curren t use of high risk medication other than anticoagulant (Z79.899) Active confirmed Problem 374795794 Gas bloat syndro me (K92.89) Active confirmed Plan Of Treatment Future Test Test Name Order Date COLONOSCOPY 01/11/2016 COLONOSCOPY 09/25/2017 Next Appt Details Provider Name:Cristian velasco Jr, 05/27/2025 03:35:00 PM, [address], [address], [place], [address], Insurance Providers Payer Name Payer Address Payer Phone Subscriber Number Group Number Insured Name Patient Relationship to Insured Coverage Start Date Coverage End Date Aetna (No Referral ) [address] [place], [place] [id number] ROSALINDA LOVE Self - patient is the insured [place] [address] [place] [phone] [id number] ROSALINDA LOVE Self - patient is the insured Medical (General) History Medical History History ICD Code diabetes mellitus depression elevated cholesterol Denies [place],CVA,Lung disease,renal disease Surgical History Surgery Date(Month/Year) breast biopsy
== END 2025-05-18 08:01 | disposition home or self-care (01) ==
LOC: HO.MAMMO 08:00
PROVIDERS: PCP Internal Medicine; Visit Provider Internal Medicine
DX: Z12.31 Encounter for screening mammogram for malignant neoplasm of breast (principal)
CPT/HCPCS: 77063; 77067

== ENCOUNTER → 2025-05-18 08:15 | Outpatient (BNV) | payer MEDICARE, SELFPAY | PROVIDERS: PCP Internal Medicine; Visit Provider Internal Medicine | DX: Z12.31 Encounter for screening mammogram for malignant neoplasm of breast (principal) | CPT/HCPCS: 77063; 77067 ==

== ENCOUNTER 2025-06-11 07:47 | Outpatient (REF) | payer MEDICARE, SELFPAY ==
--- OUTSIDE RECORDS SUMMARY | 2025-06-11 07:51 | XMS_ITS | Patient Health Record ---
Author Organization [facility] Address [address] [place] [address] Care Team Providers Care Brick And Blocker Aid Labor Name Role Phone Keke Coe Primary Care Provider Unavailab Cristian Zavala Jr Unavailable [phone] Allergies Allergen (clinical drug ingredient) Drug/Non Drug [...] Problem Status W/U Status Risk Notes Problem 418805494 Colon cancer screening (Z12.11) Active confirmed Problem Gastrointestinal tract problem (921350335) Abn findings-GI tract (R93.3) Active confirmed Problem GERD (gastroesophagea l reflux disease) (K21.9) Active confirmed Problem 516495023 Long-term current use of high risk medication other than anticoagulant (Z79.899) Active confirmed Problem 715212378 Gas bloat syndrome (K92.89) Active confirmed Vital Signs Heart Rate 64 /min 05/27/2025 Blood pressure diastolic 01 mm Hg 05/27/2025 Height 60 in 05/27/2025 Blood pressure systolic 001 mm Hg 05/27/2025 Weight 120.4 lbs 05/27/2025 BMI 23.51 kg/m2 05/27/2025 Encounters Encounter Location Date Provider Diagnosis [facility] [address] [place] [address] 05/27/2025 Cristian Gray Jr GERD (gastroesophageal reflux [...] Provider Name:Cristian velasco Jr, 06/29/2025 11:00:00 AM, [address] [place] [address] , [place], [place], [id number], Insurance Providers Payer Name Payer Address Payer Phone Subscriber Number Group Number Insured Name Patient Relationship to Insured Coverage Start Date Coverage End Date [employer] [place] RE [address] TONIO ESCALERA [id number] PCP ROSALINDA LOVE Self - patient is the insured 4 [place] [address] [place] [address] [id number] PCP ROSALINDA LOVE Self - patient is the insured 4 Medical (General) History Medical History History ICD Code diabetes mellitus depression Hypertension headaches Hypothyroidism Colonoscopy, 2018, normal, 10-year follo w-up Surgical History Surgery Date(Month/Year) Rectal fistula repair breast biopsy
[2025-06-11 09:12] LABS: Alanine Aminotransferase 22 U/L (0-31); Albumin Level 4.7 g/dL (3.5-5.0); Alkaline Phosphatase 84 U/L (39-117); Anion Gap 15 (12-20); Aspartate Amino Transferase 27 U/L (5-31); Blood Urea Nitrogen 12 mg/dL (9-16); Calcium 9.6 mg/dL (8.4-10.2); Carbon Dioxide 28 mmol/L (22-29); Chloride 103 mmol/L (96-108); Cholesterol 248 mg/dL (<200); Estimated Glomerular Filt Rate 55; HDL Cholesterol 35 mg/dL (>40); Magnesium 2.1 mg/dL (1.6-2.6); Potassium 4.6 mmol/L (3.3-5.1); Sodium 141 mmol/L (135-145); Total Protein 7.5 g/dL (6.5-8.0); Triglycerides 294 mg/dL (<150)
[2025-06-11 09:30] LABS: Thyroid Stimulating Hormone 4.52 uIU/mL (0.32-4.0)
[2025-06-11 09:44] LABS: Folate 8.4 ng/mL (> or = 4.0); Vitamin B12 341 pg/mL (200-900)
== END 2025-06-11 07:48 | disposition home or self-care (01) ==
LOC: HO.LAB 07:47
PROVIDERS: PCP Internal Medicine; Visit Provider Internal Medicine
DX: R79.89 Other specified abnormal findings of blood chemistry (principal); E53.8 Deficiency of other specified B group vitamins; E78.5 Hyperlipidemia, unspecified; E55.9 Vitamin D deficiency, unspecified; E03.9 Hypothyroidism, unspecified; M81.0 Age-related osteoporosis without current pathological fracture; R07.9 Chest pain, unspecified
CPT/HCPCS: 36415; 80053; 80061; 82306; 82607; 82746; 83735; 84443

== ENCOUNTER 2025-06-23 07:56 | Outpatient (AMB) | payer MEDICARE, SELFPAY ==
--- OUTSIDE RECORDS SUMMARY | 2025-06-23 07:59 | XMS_ITS | Patient Health Record ---
Author Organization [facility] Address [address] [place] [address] Care Team Providers Care Dragsaw Operator Name Role Phone Keke Coe Primary Care Provider Unavailab Cristian Zavala Jr Unavailable [phone] Allergies Allergen (clinical drug ingredient) Drug/Non Drug [...] Problem Status W/U Status Risk Notes Problem 036566052 Colon cancer screening (Z12.11) Active confirmed Problem Gastrointestinal tract problem (160658681) Abn findings-GI tract (R93.3) Active confirmed Problem GERD (gastroesophagea l reflux disease) (K21.9) Active confirmed Problem [id number] Long-term current use of high risk medication other than anticoagulant (Z79.899) Active confirmed Problem 420066150 Gas bloat syndrome (K92.89) Active confirmed Vital Signs Heart Rate 64 /min 05/27/2025 Blood pressure diastolic 01 mm Hg 05/27/2025 Height 60 in 05/27/2025 Blood pressure systolic 001 mm Hg 05/27/2025 Weight 120.4 lbs 05/27/2025 BMI 23.51 kg/m2 05/27/2025 Encounters Encounter Location Date Provider Diagnosis [facility] [address] [place] [address] 05/27/2025 Cristian Gray Jr GERD (gastroesophageal reflux [...] Provider Name:Cristian velasco Jr, 06/29/2025 11:00:00 AM, [address] [place] [address] , [place], [place], [id number], Insurance Providers Payer Name Payer Address Payer Phone Subscriber Number Group Number Insured Name Patient Relationship to Insured Coverage Start Date Coverage End Date [employer] RE [address] TONIO ESCALERA [id number] PCP ROSALINDA LOVE Self - patient is the insured 4 [place] [address] [place] [address] [id number] PCP ROSALINDA OLVE Self - patient is the insured 4 Medical (General) History Medical History History ICD Code diabetes mellitus depression Hypertension headaches Hypothyroidism Colonoscopy, 2018, normal, 10-year follo w-up Surgical History Surgery Date(Month/Year) Rectal fistula repair breast biopsy
[2025-06-23 08:00] VITALS: BP 130/70; PULSE 74; TEMP 36.1; O2SAT 100; BMI 22.2
--- NOTE | 2025-06-23 08:00 | MHC.PC.OV ---
Vital Signs 06/23/25 08:00 Height 5 ft 1 in Weight 117 lb 4 oz BMI 22.2 BP 130/70 Blood Pressure Location Lt brachial Position Sitting Pulse 74 Pulse Source Pulse Oximeter Temp 96.9 F Temp Source Temporal Artery Scan Pulse Oximetry (%) 100 Oxygen Delivery Method Room Air Intake Visit Reasons: bp Intake Note: Patient is here to follow up on BP check. Bracelet Form Coverer Required: Yes Bracelet Form Coverer Language: [employer] Interpreter: Present Accompanied by: Spouse Allergies Penicillins (PENICILLINS) Allergy (Intermediate, Verified 06/23/25 08:32) ITCHY HIVES levothyroxine Adverse Reaction (Intermediate, Verified 06/23/25 08:32) dizziness, weakness Tussin (?) Adverse Reaction (Intermediate, Uncoded 06/23/25 08:32) rash,urticaria Medication List - Last Reconciled 06/23/25 by Keke Ivy MD amlodipine 2.5 mg PO DAILY 90 days blood sugar diagnostic (FreeStyle Lite Strips) Use 1 test strip once a day blood sugar diagnostic (FreeStyle Lite Strips) Use 1 test strip once a day calcium carbonate 600 mg PO BID 90 days cetirizine 10 mg PO DAILY cholecalciferol (vitamin D3) 25 mcg PO DAILY 30 days diclofenac sodium 1% 2 grams topical QID PRN 30 days famotidine 20 mg PO BEDTIME fluoxetine 20 mg PO DAILY 90 days fluticasone propionate 0.05% 1 appl topical DAILY 30 days ketotifen fumarate 0.025%(0.035%) (Zaditor) 1 drp ophthalmic (eye) BID 30 days levothyroxine (Synthroid) 75 mcg PO DAILY 90 days magnesium oxide 400 mg PO BEDTIME metformin 850 mg PO BID 90 days pantoprazole 40 mg PO DAILY 90 days pravastatin 40 mg PO BEDTIME 90 days risperidone 4 mg PO DAILY 90 days trazodone 100 mg PO BEDTIME 90 days Tobacco use date assessed: 06/23/25 Fall risk assessment: No Falls in past year Last assessed Fall Risk: 06/23/25 Dental Screening Dental Screen Date: 02/09/25 HPI HPI Comments History of Present Illness Details The patient is a 74-year-old female presenting for follow-up of multiple chronic conditions including diabetes, hypertension, hypothyroidism, and hyperlipidemia. Her diabetes is well-controlled with an A1c of 5.6%, and her blood pressure is stable on amlodipine 2.5 mg. She is currently on metformin 850 mg twice daily for diabetes management. The patient reports issues with allergic rhinitis, currently managed with Claritin, though she has not noticed significant improvement. She has been advised to switch to a preservative-free eye drop due to potential rebound effects from preservatives. Her hypothyroidism is managed with levothyroxine, recently increased to 75 mcg from 50 mcg due to abnormal thyroid function tests. Thyroid labs are to be repeated in six weeks to assess the effectiveness of the dosage adjustment. The patient has a history of gastroesophageal reflux disease and is currently on pantoprazole for management. She experiences symptoms of esophageal dysmotility, including difficulty swallowing solids, leading to significant weight loss of 25 pounds. An endoscopy is scheduled to further evaluate these symptoms and potentially address the underlying issues. She has been diagnosed with cholelithiasis, with symptoms exacerbated by fatty foods, and is referred for surgical evaluation. The patient reports intermittent constipation and diarrhea, which are being monitored. Her depression is managed with fluoxetine 20 mg daily. She has a history of elevated cholesterol, currently not well-controlled as she has not been taking her prescribed pravastatin 40 mg. The plan is to restart the medication and reassess in four months. [facility] Medical History (Updated 06/23/25 @ 09:03 by Keke Ivy MD) Dry eyes due to decreased tear production Seasonal allergic rhinitis Acid reflux Snoring Mild recurrent major depression Thyroid nodule Subclinical hypothyroidism Elevated TSH Diabetes mellitus Insomnia Depression Pure hypercholesterolemia Hypovitaminosis D Surgical History History of colonoscopy History of removal of cyst History of left breast biopsy History of hemorrhoidectomy Family History Father Myocardial infarction Mother No problems noted. Family/Other FH: mental illness Mental health disorder Social History Housing: House Alcohol intake: never Patient Tobacco Use Status: Never used Tobacco Tobacco use type: Cigarette e-Cigarette/Vaping Use: Never Used Second Hand Smoke Exposure: No service: No Current occupational status: unemployed Cognitive needs: No Hearing needs: No Vision needs: No Questionnaire PHQ-9 Over the last 2 weeks, how often have you been bothered by any of the following problems? 1. Little interest or pleasure in doing things: not at all 2. Feeling down, depressed, or hopeless: several days 3. Trouble falling or staying asleep, or sleeping too much: more than half the days 4. Feeling tired or having little energy: more than half the days 5. Poor appetite or overeating: not at all 6. Feeling bad about yourself - or that you are a failure or have let yourself or your family down: several days 7. Trouble concentrating on things, such as reading the newspaper or watching television: not at all 8. Moving or speaking so slowly that other people could have noticed. Or the opposite - being so fidgety or restless that you have been moving around a lot more than usual: not at all 9. Thoughts that you would be better off or of hurting yourself in some way: several days Total score: 7 Depression Screening Interpretation: Positive Depression Screening Follow-up: Existing condition, In treatment and Follow-up Visit Requested Depression Screening Done: Yes 20527 - PHQ-9 Billing: Yes Source: Developed by Drs. Dae Forman, iRn Mallory, Anuj Macdonald and colleagues, with an educational andrzej from [employer]. Thrive Questionnaire Date Thrive assessed: 06/21/25 I am a: Parent/Caregiver What is your living situation today?: I have a steady place to live Within the past 12 months, did the food you bought not last and you didn't have the money to get more?: I choose not to answer this question Within the past 12 months, did you worry whether your food would run out before you got money to buy more?: I choose not to answer this question Do you have trouble paying for medicines?: No Do you have trouble getting transportation to medical appointments?: No Do you have trouble paying your heating and electricity bill?: No Do you have trouble taking care of your child, family member or friend?: No Do you have trouble with day-to-day activities such as bathing, preparing meals, shopping, managing finances, etc.?: No Are you currently unemployed and looking for a job?: No Are you interested in more education?: No Please select the resources that you would like help with: None Currently or been in a relationship where the following occur: No concerns reported THRIVE Score: 0 AUDIT C Alcohol Use Questionnaire (AUDIT-C) 1. How often do you have a drink containing alcohol?: Never 3. How often do you have six or more drinks on one occasion?: Never Total Score: 0 CARRIE-7 AMB Questionnaire CARRIE-7 Date CARRIE - 7 assessed: 02/09/25 Feeling nervous, anxious, or on edge: 1 = Several days Not being able to stop or control worryin = Several days Worrying too much about different things: 1 = Several days Trouble relaxin = Several days Being so restless that it is hard to sit still: 0 = Not at all Becoming easily annoyed or irritable: 0 = Not at all Feeling afraid as if something awful might happen: 0 = Not at all Total CARRIE-7 score (0-4 normal; 5-9 mild; 10-14 moderate; 15-21 severe): 4 Source: Developed by Drs. Dae Forman, Rin Mallory, Anuj Macdonald and colleagues, with an educational andrzej from [employer]. CARRIE-7 Assessment Billing CARRIE-7 Assessment Tool: CARRIE-7 Assessment 11121 Review of Systems Const All systems reviewed & are unremarkable except as noted in HPI and below Card Denies chest pain at rest, Denies chest pain with activity, Denies edema, Denies irregular heart rhythm, Denies claudication, Denies dyspnea, Denies dyspnea on exertion, Denies orthopnea, Denies paroxysmal nocturnal dyspnea and Denies slow heart rate Resp Denies cough, Denies dyspnea and Denies dyspnea on exertion GI Denies abdominal pain, Denies change in bowel habits, Denies excessive flatus, Denies nausea and Denies vomiting Physical exam (Primary Care) Vital Signs: Last Vital Signs Temp 96.9 F 06/23/25 08:00 Pulse 74 06/23/25 08:00 BP 130/70 06/23/25 08:00 Pulse Ox 100 06/23/25 08:00 Oxygen Delivery Method Room Air 06/23/25 08:00 BMI result Body Mass Index 22.2 Tobacco/Smoking Status: Tobacco use Status Tobacco use date assessed 06/23/25 06/23/25 08:01 Patient Tobacco Use Status Never used Tobacco 06/23/25 08:01 Tobacco use type Cigarette 06/23/25 08:01 e-Cigarette/Vaping Use Never Used 06/23/25 08:01 PHQ-9: PHQ-9 Score PHQ-9: Total score 7 06/23/25 08:34 Depression Screening Interpretation: Positive Depression Screening Follow-up: Existing condition, In treatment and Follow-up Visit Requested Thrive Assessment: Date of Thrive Assessment Date Thrive assessed 06/21/25 06/23/25 08:01 Currently or been in a relationship where the following occur: No concerns reported Resp Effort & Inspection: normal respiratory effort Auscultation: clear to auscultation bilaterally Cardio Jugular venous distension: no JVD Rate: regular rate Rhythm: regular rhythm Heart sounds: S1 normal heart sound present and S2 normal heart sound present Extrem General: Yes full ROM Results AMB Hemoglobin A1c AMB Hemoglobin A1c 5.6 % Last Edit by KATHY St on 06/23/25 08:24 Results Reviewed Results Reviewed: Laboratory Last Values Hgb A1c (Clinic) 5.6 % (4.0-6.0) 06/23/25 08:01 Coding Level of Care Code Est Pt Level 4 (73599) Complex EM visit Add On G2211 Diagnoses Mild recurrent major depression F33.0 Essential hypertension I10 Pure hypercholesterolemia E78.00 Type 2 diabetes mellitus with hyperglycemia, without long-term current use of insulin E11.65 Diabetes mellitus type: type 2 Diabetes mellitus alf insulin use: without alf use Diabetes mellitus complication status: with hyperglycemia Acquired hypothyroidism E03.9 Hypothyroidism type: acquired Age-related osteoporosis without current pathological fracture M81.0 Osteoporosis type: age-related Presence of current pathological fracture: without current pathological fracture Allergic conjunctivitis H10.10 Gastroesophageal reflux disease without esophagitis K21.9 Esophagitis presence: without esophagitis Cholelithiasis K80.20 Insomnia G47.00 Allergic rhinitis J30.9 Additional Codes CARRIE-7 Assessment Billing - CARRIE-7 Assessment Tool: CARRIE-7 Assessment 08403 ([id number]) PHQ-9 - 69944 - PHQ-9 Billing: Yes ([id number]) Time Spent (min) 25 Assessment & Plan Assessment & Plan (1) Mild recurrent major depression: Code(s): F33.0 - Major depressive disorder, recurrent, mild Category: Medical (2) Essential hypertension: Code(s): I10 - Essential (primary) hypertension Category: Medical (3) Pure hypercholesterolemia: Code(s): E78.00 - Pure hypercholesterolemia, unspecified Category: Medical (4) Diabetes mellitus: Code(s): E11.9 - Type 2 diabetes mellitus without complications Category: Medical Qualifiers: Diabetes mellitus type: type 2 Diabetes mellitus alf insulin use: without alf use Diabetes mellitus complication status: with hyperglycemia Qualified Code(s): E11.65 - Type 2 diabetes mellitus with hyperglycemia (5) Hypothyroid: Code(s): E03.9 - Hypothyroidism, unspecified Category: Medical Qualifiers: Hypothyroidism type: acquired Qualified Code(s): E03.9 - Hypothyroidism, unspecified (6) Osteoporosis: Code(s): M81.0 - Age-related osteoporosis without current pathological fracture Category: Medical Qualifiers: Osteoporosis type: age-related Presence of current pathological fracture: without current pathological fracture Qualified Code(s): M81.0 - Age-related osteoporosis without current pathological fracture (7) Allergic conjunctivitis: Code(s): H10.10 - Acute atopic conjunctivitis, unspecified eye Category: Medical (8) GERD (gastroesophageal reflux disease): Code(s): K21.9 - Gastro-esophageal reflux disease without esophagitis Category: Medical Qualifiers: Esophagitis presence: without esophagitis Qualified Code(s): K21.9 - Gastro-esophageal reflux disease without esophagitis (9) Cholelithiasis: Code(s): K80.20 - Calculus of gallbladder without cholecystitis without obstruction Category: Medical (10) Insomnia: Code(s): G47.00 - Insomnia, unspecified Category: Medical (11) Allergic rhinitis: Code(s): J30.9 - Allergic rhinitis, unspecified Category: Medical Plan The patient's diabetes management will continue with metformin 850 mg twice daily, given the well-controlled A1c of 5.6%. Her hypertension remains stable on amlodipine 2.5 mg, and no changes are necessary at this time. For hypothyroidism, the levothyroxine dosage has been increased to 75 mcg, with thyroid function tests to be repeated in six weeks to evaluate the response. The patient is advised to adhere to the new dosage regimen. The patient will continue using pantoprazole for gastroesophageal reflux disease management, and an endoscopy is scheduled to address esophageal dysmotility and dysphagia. The endoscopy will also evaluate the significant weight loss and difficulty swallowing solids. Cholelithiasis will be further evaluated with a surgical consultation, especially given the exacerbation of symptoms with fatty foods. The patient is encouraged to restart pravastatin 40 mg for hyperlipidemia management, with a follow-up in four months to assess cholesterol levels. For allergic rhinitis, a switch to preservative-free eye drops is recommended, and a referral to an district ranger is made for further evaluation. Patient was informed and verbally consented to the use of an ambient scribe for clinic note documentation during this visit. Orders: Orders AMB Hemoglobin A1c Today Z13.9 - Encounter for screening, unspecified Thyroid Stimulating Hormone 6 Weeks E03.9 - Hypothyroidism, unspecified US abdomen limited Today K80.20 - Calculus of gallbladder without cholecystitis without obstruction Vitamin B12 and Folate 4 Months E53.8 - Deficiency of other specified B group vitamins Vitamin D 25-OH Total 4 Months E55.9 - Vitamin D deficiency, unspecified Comprehensive [place]. Panel Fast 4 Months E11.65 - Type 2 diabetes mellitus with hyperglycemia Thyroid Stimulating Hormone 4 Months E03.9 - Hypothyroidism, unspecified Lipid Panel 4 Months E78.5 - Hyperlipidemia, unspecified Microalbumin, Random (w Creat) 4 Months R80.9 - Proteinuria, unspecified XR DEXA axial skeleton 4 Months Z78.0 - Asymptomatic menopausal state Referrals Allergy & Immunology Referral J30.9 - Allergic rhinitis, unspecified Medications: New famotidine 40 mg PO BEDTIME 90 tabs 1RF 90 days levocetirizine 5 mg PO BID PRN 180 tabs 0RF allergy symptoms 90 days montelukast 10 mg PO BEDTIME 90 tabs 0RF 90 days J30.9 - Allergic rhinitis, unspecified cromolyn 4% 1 drp ophthalmic (eye) QID 10 mL 1RF 30 days H10.10 - Acute atopic conjunctivitis, unspecified eye Refilled levothyroxine (Synthroid) 75 mcg PO DAILY 90 tabs 1RF 90 days pravastatin 40 mg PO BEDTIME 90 tabs 1RF 90 days E78.00 - Pure hypercholesterolemia, unspecified Discontinued famotidine Discontinued Reason: Patient Completed Course 20 mg PO BEDTIME 90 tabs 1RF J30.2 - Other seasonal allergic rhinitis cetirizine Discontinued Reason: Patient Completed Course 10 mg PO DAILY 90 tabs 1RF J30.2 - Other seasonal allergic rhinitis
== END 2025-06-23 08:54 | disposition home or self-care (01) ==
LOC: HO.HMCH 07:57
PROVIDERS: PCP Internal Medicine; Visit Provider Internal Medicine
DX: F33.0 Major depressive disorder, recurrent, mild (principal); I10 Essential (primary) hypertension; E78.00 Pure hypercholesterolemia, unspecified; E11.65 Type 2 diabetes mellitus with hyperglycemia; E03.9 Hypothyroidism, unspecified; M81.0 Age-related osteoporosis without current pathological fracture; H10.10 Acute atopic conjunctivitis, unspecified eye; K21.9 Gastro-esophageal reflux disease without esophagitis; K80.20 Calculus of gallbladder without cholecystitis without obstruction; G47.00 Insomnia, unspecified; J30.9 Allergic rhinitis, unspecified; Z13.9 Encounter for screening, unspecified

== ENCOUNTER → 2025-06-23 07:56 | Outpatient (BNVA) | payer MEDICARE, SELFPAY | PROVIDERS: PCP Internal Medicine; Visit Provider Internal Medicine | DX: I10 Essential (primary) hypertension (principal); E03.9 Hypothyroidism, unspecified; K21.9 Gastro-esophageal reflux disease without esophagitis; K59.00 Constipation, unspecified; R19.7 Diarrhea, unspecified; F33.0 Major depressive disorder, recurrent, mild; E78.00 Pure hypercholesterolemia, unspecified; E11.65 Type 2 diabetes mellitus with hyperglycemia; M81.0 Age-related osteoporosis without current pathological fracture; H10.10 Acute atopic conjunctivitis, unspecified eye; K80.20 Calculus of gallbladder without cholecystitis without obstruction; G47.00 Insomnia, unspecified; J30.9 Allergic rhinitis, unspecified; Z79.899 Other long term (current) drug therapy | CPT/HCPCS: 83036; 96127; 99212 ==

== ENCOUNTER 2025-06-29 09:23 | Day surgery (SDC) | payer MEDICARE, SELFPAY ==
--- OUTSIDE RECORDS SUMMARY | 2025-06-02 14:41 | XMS_ITS | Patient Health Record ---
Author Organization [facility] Address [address] [place] [address] Care Team Providers Care Reverberatory Furnace Supervisor Name Role Phone Keke Coe Primary Care Provider Unavailab Cristian Zavala Jr Unavailable Allergies Allergen (clinical drug ingredient) Drug/Non Drug Allergy documented on EMR Reaction Allergy Type Onset Date Status Penicillin Unknown Drug Allergy Active Reason For Referral No Information Medications Medication SIG (Take, Route, Frequency, Duration) Notes Start Date End Date Status Pantoprazole Sodium 40 MG 1 packet 1/2 t o 1 hour before morning meal mixed with apple juice or applesauce Orally Once a day Active traZODone HCl 100 MG 1 tablet at bedtime Orally Once a day Active FLUoxetine HCl 20 MG 1 capsule in the morning Orally Once a day Active metFORMIN HCl 500 MG 1 tablet with meals Orally Twice a day Active Pravastatin Sodium 20 MG 1 tablet Orally Once a day Not-Taking risperiDONE 4 MG 1 tablet Orally Once a day Not-Taking Calcium 500 MG 1 tablet with meals Orally Once a day Not-Taking Colyte with Flavor Packs 240 GM As directed Orally Over the specified time. for 1 day(s) Not-Taking Immunizations Vaccine Route Administration Date Status Comme nts Flu vaccine no Preserv 3 and > Unknown 08/23/2015 Admin istered Flu vaccine no Preserv 3 and > Unknown 08/11/2017 Admin istered Problems Problem Type SNOMED Code ICD Code Onset Dates Problem Status W/U Status Risk Notes Problem 680228335 Colon cancer screening (Z12.11) Active confirmed Problem Gastrointestinal tract problem (836698513) Abn findings-GI tract (R93.3) Active confirmed Problem GERD (gastroesophagea l reflux disease) (K21.9) Active confirmed Problem 466657761 Long-term current use of high risk medication other than anticoagulant (Z79.899) Active confirmed Problem 742066525 Gas bloat syndrome (K92.89) Active confirmed Vital Signs Heart Rate 64 /min 05/27/2025 Blood pressure diastolic 01 mm Hg 05/27/2025 Height 60 in 05/27/2025 Blood pressure systolic 001 mm Hg 05/27/2025 Weight 120.4 lbs 05/27/2025 BMI 23.51 kg/m2 05/27/2025 Encounters Encounter Location Date Provider Diagnosis [facility] [address] [place] [address] 05/27/2025 Cristian Gray Jr GERD (gastroesophageal reflux disease) K21.9 and Abn findings-GI tract R93.3 Assessments Encounter Date Diagnosis (ICD Code) Assessment Notes Treatment Notes Treatment Clinical Notes Section Notes 05/27/2025 Abn findings-GI tract (ICD-10 - R93.3) We discussed her symptoms today. We discussed the pathophysiology of gastroesophageal reflux disease today. We recommend that she continue pantoprazole. We discussed diet, lifestyle modifications, and weight management regarding the treatment of reflux. She will have further evaluation of her symptoms and abnormal upper GI series with upper endoscopy. She is aware of risks and benefits and agrees to proceed. We asked her to not take her metformin the morning of the procedure. 05/27/2025 GERD (gastroesopha geal reflux disease) (ICD-10 - K21.9) We discussed her symptoms today. We discussed the pathophysiology of gastroesophageal reflux disease today. We recommend that she continue pantoprazole. We discussed diet, lifestyle modifications, and weight management regarding the treatment of reflux. She will have further evaluation of her symptoms and abnormal upper GI series with upper endoscopy. She is aware of risks and benefits and agrees to proceed. We asked her to not take her metformin the morning of the procedure. Plan Of Treatment Future Test Test Name Order Date COLONOSCOPY 01/11/2016 COLONOSCOPY 09/25/2017 UPPER GI ENDOSCOPY 05/27/2025 Next Appt Details Provider Name:Cristian velasco Jr, 06/29/2025 11:00:00 AM, [address] [place] [address] , [place], [place], [phone], Insurance Providers Payer Name Payer Address Payer Phone Subscriber Number Group Number Insured Name Patient Relationship to Insured Coverage Start Date Coverage End Date [employer] [place] [address] TONIO ESCALERA [id number] PCP ROSALINDA LOVE Self - patient is the insured 4 [place] [address] [place] [phone] [id number] PCP ROSALINDA LOVE Self - patient is the insured 4 Medical (General) History Medical History History ICD Code diabetes mellitus depression Hypertension headaches Hypothyroidism Colonoscopy, 2018, normal, 10-year follo w-up Surgical History Surgery Date(Month/Year) Rectal fistula repair breast biopsy
--- NOTE | 2025-06-28 13:12 | P.CONAN_ITS ---
Documented by User: Shanique Brown NP 06/28/25 13:15 HPI - Anesthesia Eval Consult details Narrative: 74 yr old female for upper endoscopy Type 2 DM: well controlled, A1C 5.3% [facility] Active Problems Active Problems: All Active Problems Allergic conjunctivitis (Acute) Allergic rhinitis (Acute) Abnormal upper gastrointestinal barium series (Acute) Cholelithiasis (Acute) Dry eyes due to decreased tear production (Acute) Seasonal allergic rhinitis (Acute) GERD (gastroesophageal reflux disease) (Acute) Chest pain (Acute) Acute pain of both ears (Acute) Acid reflux (Acute) Physical exam (Acute) Low vitamin B12 level (Acute) Essential hypertension (Acute) Hypomagnesemia (Acute) Osteoporosis (Acute) Daytime sleepiness (Acute) Snoring (Acute) Cognitive impairment (Acute) Hypothyroid (Acute) Osteopenia (Acute) Physical exam (Acute) Bunion, left foot (Acute) Mild recurrent major depression (Acute) Thyroid nodule (Acute) Diabetes mellitus (Acute) Insomnia (Acute) Pure hypercholesterolemia (Acute) Hypovitaminosis D (Acute) Past Medical History Medical History Dry eyes due to decreased tear production Seasonal allergic rhinitis Acid reflux Snoring Mild recurrent major depression Thyroid nodule Subclinical hypothyroidism Elevated TSH Diabetes mellitus Insomnia Depression Pure hypercholesterolemia Hypovitaminosis D Family History Family History Father Myocardial infarction Mother No problems noted. Family/Other FH: mental illness Mental health disorder Surgical History Surgical History History of colonoscopy History of removal of cyst History of left breast biopsy History of hemorrhoidectomy Social History Social History Housing: House Alcohol intake: never Patient Tobacco Use Status: Never used Tobacco Tobacco use type: Cigarette e-Cigarette/Vaping Use: Never Used Second Hand Smoke Exposure: No Use of substances other than those prescribed or required for medical reasons: No Advance Directives: No Advance Directives Information Provided: Yes service: No Current occupational status: unemployed Cognitive needs: No Hearing needs: No Vision needs: No Meds Allergies Allergy/AdvReac Type Severity Reaction Status Date / Time Penicillins (PENICILLINS) Allergy Intermediate ITCHY HIVES Verified 06/23/25 08:32 levothyroxine AdvReac Intermediate dizziness, Verified 06/23/25 08:32 weakness Tussin (?) AdvReac Intermediate rash,urtica Uncoded 06/23/25 08:32 angela Exam Pertinent Lab Results Pertinent Lab Results: Laboratory Tests 06/11/25 08:04 Sodium 141 Potassium 4.6 BUN 12 Creatinine 0.99 Narrative Narrative: EKG 02/2025 Vent. Rate : 61 BPM Atrial Rate : 61 BPM P-R Int : 150 ms QRS Dur : 82 ms QT Int : 414 ms P-R-T Axes : 42 -6 54 degrees QTcB Int : 416 ms Normal sinus rhythm Normal ECG No previous ECGs available Documented by User: Chela Blanco MD 06/29/25 11:30 PMFSH Past Medical History Medical History Dry eyes due to decreased tear production Seasonal allergic rhinitis Acid reflux Snoring Mild recurrent major depression Thyroid nodule Subclinical hypothyroidism Elevated TSH Diabetes mellitus Insomnia Depression Pure hypercholesterolemia Hypovitaminosis D Family History Family History Father Myocardial infarction Mother No problems noted. Family/Other FH: mental illness Mental health disorder Surgical History Surgical History History of colonoscopy History of removal of cyst History of left breast biopsy History of hemorrhoidectomy History of Problems with Anesthesia: No Social History Social History Housing: House Alcohol intake: never Patient Tobacco Use Status: Never used Tobacco Tobacco use type: Cigarette e-Cigarette/Vaping Use: Never Used Second Hand Smoke Exposure: No Use of substances other than those prescribed or required for medical reasons: No Advance Directives: No Advance Directives Information Provided: Yes service: No Current occupational status: unemployed Cognitive needs: No Hearing needs: No Vision needs: No Meds Allergies Allergy/AdvReac Type Severity Reaction Status Date / Time Penicillins (PENICILLINS) Allergy Intermediate ITCHY HIVES Verified 06/23/25 08:32 levothyroxine AdvReac Intermediate dizziness, Verified 06/23/25 08:32 weakness Tussin (?) AdvReac Intermediate rash,urtica Uncoded 06/23/25 08:32 angela Exam Airway Mallampati Class: II (edentulous) TM Dist: >3cm Neck ROM: Limited Loose/Missing/Broken Teeth: Yes, Upper and Lower Heart: RRR Lungs: CTA Assessment and Plan Assessment Anesthesia Assessment: Anesthesia Plan Discussed and Chart Reviewed Final Anesthetic Review History of Problems with Anesthesia: No NPO: Yes ASA Class: III Final Preanesthetic Review: Meds/Allgs Chart Reviewed, Consent Obtained/Reviewed and Anes Risks/Benef Reviewed Patient Risk: Intermediate Procedure Risk: Intermediate Anesthetic Plan Anesthetic Plan: MAC: Disposition: Standard PACU
[2025-06-29 10:06] VITALS: BMI 24.2
[2025-06-29 10:20] VITALS: BP 197/85; PULSE 63; RESP 16; TEMP 36.7; O2SAT 99
[2025-06-29] MEDS: Lactated Ringers 1,000 ML 100 ML IVCONT (10:21)
[2025-06-29 10:32] LABS: Glucose, Whole Blood 113 mg/dL (60-115)
--- NOTE | 2025-06-29 12:09 | MHC.SHP ---
Pre-Procedural Eval Section A - 24 Hr Update-Section A only Date of Service: 06/29/25 The patient is an INPATIENT: No Changes since office visit: No Cold of Flu in the past 2 weeks, No New Medical Problems, No Changes in Medication and No Patient answered all questions The patient has been examined within 24 hours of the surgical procedure. The History & Physical has been completed within 30 days and I have reviewed it.: Yes Section B - Complete if H&P > 30 days Chief Complaint: gerd, Allergies: Allergies Allergy/AdvReac Type Severity Reaction Status Date / Time Penicillins (PENICILLINS) Allergy Intermediate ITCHY HIVES Verified 06/23/25 08:32 levothyroxine AdvReac Intermediate dizziness, Verified 06/23/25 08:32 weakness Tussin (?) AdvReac Intermediate rash,urtica Uncoded 06/23/25 08:32 angela Plan I have reviewed the history and physical and performed a pertinent physical examination on my patient. No changes have occurred unless specified. Time Spent With Patient Time: Total time managing care of this patient today ____ minutes.
[2025-06-29 12:32] VITALS: BP 134/57; PULSE 54; RESP 18; TEMP 36.3; O2SAT 100
[2025-06-29 12:45] VITALS: BP 147/74; PULSE 56; RESP 16; TEMP 36.2; O2SAT 98
--- NOTE | 2025-06-29 13:27 | OP_ITS ---
DATE OF SERVICE: 06/29/2025 SURGEON: Cristian Gray MD INDICATIONS: Gastroesophageal reflux disease and abnormal upper GI series. PREOPERATIVE DIAGNOSIS: POSTOPERATIVE DIAGNOSIS: PROCEDURE PERFORMED: Upper endoscopy with biopsy. ESTIMATED BLOOD LOSS: COMPLICATIONS: ANESTHESIA: Monitored anesthesia care. ASSISTANTS: SPECIMENS: DESCRIPTION OF PROCEDURE: The history and physical performed. The risks and benefits of the procedure were explained to the patient. Informed consent was obtained. The patient was placed in the left lateral decubitus position. The Olympus video gastroscope was introduced into the esophagus, stomach, and duodenum. Examination was performed. The scope was removed. She tolerated the procedure well and was returned to recovery area in stable condition. FINDINGS: Esophagus: The esophagus was normal. The EG junction was slightly irregular. This was biopsied. Stomach: Stomach showed no evidence of masses or ulcers. Biopsies were obtained from the antrum. Duodenum: The bulb and 2nd portion were normal. Retroflexed examination of the gastric body showed no masses. IMPRESSION: Gastroesophageal reflux disease. RECOMMENDATION: Followup the biopsy results. MD KILLIAN Tan/MODL / [id number]
== END 2025-06-29 13:02 | disposition home or self-care (01) ==
PROVIDERS: PCP Internal Medicine; Visit Provider Internal Medicine Gastroenterology
PROC: 0DJ08ZZ Inspection of Upper Intestinal Tract, Via Natural or Artificial Opening Endoscopic (ICD-10-PCS; CPT 43235; principal; 2025-06-29 11:10)
DX: K21.9 Gastro-esophageal reflux disease without esophagitis (principal); K22.89 Other specified disease of esophagus; R93.3 Abnormal findings on diagnostic imaging of other parts of digestive tract; E11.9 Type 2 diabetes mellitus without complications; E78.00 Pure hypercholesterolemia, unspecified; Z79.84 Long term (current) use of oral hypoglycemic drugs; Z79.02 Long term (current) use of antithrombotics/antiplatelets; Z79.899 Other long term (current) drug therapy
CPT/HCPCS: 43239; 82947; 88305; 88313; 88342

== ENCOUNTER 2025-07-14 08:51 | Outpatient (AMB) | payer MEDICARE, MEDICAID, SELFPAY ==
--- OUTSIDE RECORDS SUMMARY | 2025-06-29 07:10 | XMS_ITS ---
Author Organization [facility] Address [address] [place] [phone] Care Team Providers Care Reliability Specialist Name Role Phone Keke Coe Primary Care Provider Unavailab Cristian Zavala Jr Unavailable REASON FOR VISIT gerd,abn ugi series Encounters Encounter Location Date Provider [place] [facility] [place] [address] [place] [phone] 06/29/2025 Cristian Gray Jr Plan Of Treatment No Information Progress Notes * ROSALINDA LOVEDOB: [birth year] (74 yo F)Acc No.[id number]:06/29/2025 EGD/MAC Patient: ROSALINDA PETTIT Provider: Fidel Gray MD :1950 A ge:74 Y S ex:Female Date:06/29/2025 Address:[address] [place], [place] [phone] Pcp:Keke Ivy Subjective: * Chief Complaints: * 1 . Gerd,abn ugi series. * Medical History: Objective: * Vitals: Assessment: Plan: * Treatment: * * The named appointment provid er may or may not be the originator of this progress note, and it is not deemed complete until electronically signed by the appointment provider. Sign off status: Pending * Provider: Fidel Gray MD Date: 06/29/2025 Generated for Printi ng/Faxing/eTransmitting on: 07/14/2025 09:22 AM EDT
[2025-07-14 09:05] VITALS: BP 100/60; PULSE 77; O2SAT 99; BMI 23.4
--- NOTE | 2025-07-14 09:05 | A.OFFVIS_ITS ---
Vital Signs 07/14/25 09:05 Height 5 ft Weight 120 lb BMI 23.4 BP 100/60 Blood Pressure Location Lt brachial Position Sitting Pulse 77 Pulse Source Pulse Oximeter Pulse Oximetry (%) 99 Oxygen Delivery Method Room Air Intake Visit Reasons: Follow up Superintendent Radio Communications Required: No Superintendent Radio Communications Services: Superintendent Radio Communications Offered & Declined Superintendent Radio Communications Name: Son relation. Accompanied by: Self / Same As Patient Allergies Penicillins (PENICILLINS) Allergy (Intermediate, Verified 07/14/25 09:06) ITCHY HIVES levothyroxine Adverse Reaction (Intermediate, Verified 07/14/25 09:06) dizziness, weakness Tussin (?) Adverse Reaction (Intermediate, Uncoded 06/23/25 08:32) rash,urticaria Medication List - Last Reconciled 07/14/25 by ERENDIRA Babin amlodipine 2.5 mg PO DAILY 90 days blood sugar diagnostic (FreeStyle Lite Strips) Use 1 test strip once a day blood sugar diagnostic (FreeStyle Lite Strips) Use 1 test strip once a day calcium carbonate 600 mg PO BID 90 days cholecalciferol (vitamin D3) 25 mcg PO DAILY 30 days cromolyn 4% 1 drp ophthalmic (eye) QID 30 days diclofenac sodium 1% 2 grams topical QID PRN 30 days famotidine 40 mg PO BEDTIME 90 days fluoxetine 20 mg PO DAILY 90 days fluticasone propionate 0.05% 1 appl topical DAILY 30 days ketotifen fumarate 0.025%(0.035%) (Zaditor) 1 drp ophthalmic (eye) BID 30 days levocetirizine 5 mg PO BID PRN 90 days levothyroxine (Synthroid) 75 mcg PO DAILY 90 days metformin 850 mg PO BID 90 days montelukast 10 mg PO BEDTIME 90 days pantoprazole 40 mg PO DAILY 90 days pravastatin 40 mg PO BEDTIME 90 days trazodone 100 mg PO BEDTIME 90 days HPI Comments Details: 74-year-old female presenting with follow-up for cognitive impairment, Patient is accompanied by her son, Bennett, who assists w/ Bur[place]ian interpretation. Patient however reports she is concerned that she has sour taste in her mouth, it can be so strong it makes her regurgitate. States some days her mouth can be too dry and her saliva is too thick. She does use a mouthwash. Patient and son reports her cognition is stable. Some mild forgetfulness. She declined to do the [facility] neuropsych evaluation due to [address]. Reports sometimes forgetting minor details. She has not resumed Risperal, which she wenaed herself off of. She has decreased her trazodone to 1/2 tab, and is sleeping better. [facility] Medical History Dry eyes due to decreased tear production Seasonal allergic rhinitis Acid reflux Snoring Mild recurrent major depression Thyroid nodule Subclinical hypothyroidism Elevated TSH Diabetes mellitus Insomnia Depression Pure hypercholesterolemia Hypovitaminosis D Surgical History History of colonoscopy History of removal of cyst History of left breast biopsy History of hemorrhoidectomy Family History Father Myocardial infarction Mother No problems noted. Family/Other FH: mental illness Mental health disorder Social History Housing: House Alcohol intake: never Patient Tobacco Use Status: Never used Tobacco Tobacco use type: Cigarette e-Cigarette/Vaping Use: Never Used Second Hand Smoke Exposure: No service: No Current occupational status: unemployed Cognitive needs: No Hearing needs: No Vision needs: No Physical Exam Vital Signs: Last Vital Signs Pulse 77 07/14/25 09:05 BP 100/60 07/14/25 09:05 Pulse Ox 99 07/14/25 09:05 Oxygen Delivery Method Room Air 07/14/25 09:05 BMI result Body Mass Index 23.4 Const General: cooperative and no acute distress Orientation/consciousness: patient oriented x3 HEENT Other: Right external ear canal redness inflammation with mild exudate. Left TM shows evidence of mild effusion without erythema. Head: Yes normal to inspection Resp Effort & Inspection: normal respiratory effort and able to speak in complete sentences Neuro Other: A&O w/ mild STM lapses Tongue- moist, pink w/o lesions. Mild oral buccal movements- pt sttes not involuntary, states she is just trying to clear her throat General: patient oriented x3 Cranial nerves: Yes CN's II-XII intact bilaterally Cognition (Neuro): normal cognition Assessment & Plan Assessment & Plan (1) Cognitive impairment: Comment: mild . she did well on testing- MMSE 28. Code(s): R41.89 - Other symptoms and signs involving cognitive functions and awareness Category: Medical (2) Mild recurrent major depression: Code(s): F33.0 - Major depressive disorder, recurrent, mild Category: Medical (3) Bad taste in mouth: Code(s): R43.8 - Other disturbances of smell and taste Category: Medical Plan Patient and declined [facility] for comprehensive neuropsychological evaluation d/t drive. Thus, will hold order for now. Cognition stable, continue to monitor May try to decrease trazodone to 1/4 tab qhs. For bad oral taste: reviewed simple strategies- avoid mouthwashes taht are drying. try warm salt water rinses, oral xylimelts, hard lemon candy. If ineffective, f/u w/ her GI or mailer. Pt to follow-up in 6 months or sooner prn. Coding Level of Care Code Est Pt Level 3 (39316) Diagnoses Cognitive impairment R41.89 Mild recurrent major depression F33.0 Bad taste in mouth R43.8
--- OUTSIDE RECORDS SUMMARY | 2025-07-14 09:23 | XMS_ITS | Patient Health Record ---
Author Organization [facility] Address [address] [place] [address] Care Team Providers Care Book Jogger Name Role Phone Keke Coe Primary Care Provider Cristian Price Jr Unavailable [phone] Allergies Allergen (clinical drug ingredient) Drug/Non Drug Allergy documented on EMR Reaction Allergy Type Onset Date Status Penicillin Unknown Drug Allergy Active Results Component Value Reference Range Notes Glucose, Whole Blood Reviewed date:06/30/2025 08:15:32 AM Interpretation: Performing Lab:[facility], [address] [place] [phone] Notes/Report: Glucose, Whole Blood 113 60-115 mg/dL METER # : [id number] Pathology Reviewed date:07/06/2025 04:07:38 PM Interpretation: Performing Lab:[facility], [address] [place] [phone] Notes/Report: Reason For Referral No Information Medications Medication [...] Problem Status W/U Status Risk Notes Problem 276070433 Colon cancer screening (Z12.11) Active confirmed Problem Gastrointestinal tract problem (135440499) Abn findings-GI tract (R93.3) Active confirmed Problem GERD (gastroesophagea l reflux disease) (K21.9) Active confirmed Problem 912700399 Long-term current use of high risk medication other than anticoagulant (Z79.899) Active confirmed Problem 418768459 Gas bloat syndrome (K92.89) Active confirmed Vital Signs Heart Rate 64 /min 05/27/2025 Blood pressure diastolic 01 mm Hg 05/27/2025 Height 60 in 05/27/2025 Blood pressure systolic 001 mm Hg 05/27/2025 Weight 120.4 lbs 05/27/2025 BMI 23.51 kg/m2 05/27/2025 Encounters Encounter Location Date Provider Diagnosis [facility] [place] [address] [place] [phone] 06/29/2025 Cristian Gray Jr [facility] [address] [place] [phone] 05/27/2025 Cristian Gray Jr GERD (gastroesophageal reflux disease) K21.9 and Abn findings-GI tract R93.3 [facility] [address] [place] [phone] 07/06/2025 Cristian Gray Jr Assessments Encounter Date Diagnosis (ICD Code) Assessment [...] 01/11/2016 COLONOSCOPY 09/25/2017 UPPER GI ENDOSCOPY 05/27/2025 Insurance Providers Payer Name Payer Address Payer Phone Subscriber Number Group Number Insured Name Patient Relationship to Insured Coverage Start Date Coverage End Date [facility] [address] [place], [place] [id number] PCP ROSALINDA LOVE Self - patient is the insured 4 [employer] [address] [place] [address] [id number] PCP ROSALINDA LOVE Self - patient is the insured 4 Medical (General) History Medical History History ICD Code diabetes mellitus depression Hypertension headaches Hypothyroidism Colonoscopy, 2018, normal, 10-year follo w-up Surgical History Surgery Date(Month/Year) Rectal fistula repair breast biopsy
== END 2025-07-14 10:06 | disposition home or self-care (01) ==
LOC: HO.HSMS 08:52
PROVIDERS: PCP Internal Medicine; Visit Provider Nurse Practitioner Family
DX: R41.89 Other symptoms and signs involving cognitive functions and awareness (principal); F33.0 Major depressive disorder, recurrent, mild; R43.8 Other disturbances of smell and taste
CPT/HCPCS: 99213

== ENCOUNTER → 2025-07-14 08:51 | Outpatient (BNVA) | payer MEDICARE, MEDICAID, SELFPAY | PROVIDERS: PCP Internal Medicine; Visit Provider Nurse Practitioner Family | DX: F33.0 Major depressive disorder, recurrent, mild (principal); R41.89 Other symptoms and signs involving cognitive functions and awareness; R43.8 Other disturbances of smell and taste | CPT/HCPCS: 99212 ==

== ENCOUNTER 2025-10-12 07:46 | Outpatient (REF) | payer MEDICARE, MEDICAID, SELFPAY ==
[2025-10-12 09:13] LABS: Alanine Aminotransferase 23 U/L (0-31); Albumin Level 4.8 g/dL (3.5-5.0); Alkaline Phosphatase 93 U/L (39-117); Anion Gap 12 (12-20); Aspartate Amino Transferase 27 U/L (5-31); Blood Urea Nitrogen 17 mg/dL (9-16); Calcium 9.9 mg/dL (8.4-10.2); Carbon Dioxide 29 mmol/L (22-29); Chloride 104 mmol/L (96-108); Cholesterol 161 mg/dL (<200); Estimated Glomerular Filt Rate 60; HDL Cholesterol 41 mg/dL (>40); Potassium 4.3 mmol/L (3.3-5.1); Sodium 141 mmol/L (135-145); Total Protein 7.7 g/dL (6.5-8.0); Triglycerides 245 mg/dL (<150)
[2025-10-12 09:17] LABS: Microalbum/Creatinine Ratio Ur 15.6 ug/mg cr (<30)
[2025-10-12 09:32] LABS: Thyroid Stimulating Hormone 0.21 uIU/mL (0.32-4.0)
[2025-10-12 09:42] LABS: Folate 7.8 ng/mL (> or = 4.0); Vitamin B12 312 pg/mL (200-900)
== END 2025-10-12 07:47 | disposition home or self-care (01) ==
LOC: HO.LAB 07:46
PROVIDERS: Visit Provider Internal Medicine
DX: E53.8 Deficiency of other specified B group vitamins (principal); E11.65 Type 2 diabetes mellitus with hyperglycemia; E03.9 Hypothyroidism, unspecified; E78.5 Hyperlipidemia, unspecified; E55.9 Vitamin D deficiency, unspecified; R80.9 Proteinuria, unspecified
CPT/HCPCS: 36415; 80053; 80061; 82043; 82306; 82570; 82607; 82746; 84443

== ENCOUNTER 2025-10-21 08:40 | Outpatient (REF) | payer MEDICARE, MEDICAID, SELFPAY ==
--- NOTE | ~2025-10-21 | US_ITS ---
EXAMINATION: US ABDOMEN HISTORY: K80.20 - Calculus of gallbladder without cholecystitis without obstruction TECHNIQUE: Real-time grayscale ultrasound imaging of the abdomen was performed and images were reviewed. COMPARISON: There are no prior studies available for comparison. FINDINGS: Liver: The right lobe of the liver measures 16.2 cm in size. The left lobe of the liver measures 9.1 cm in size. The liver demonstrates increased echotexture, consistent with steatosis. No focal mass or intrahepatic biliary ductal dilatation is identified. There is normal hepatopedal flow in the portal vein. Gallbladder and biliary tree: There is diffuse shadowing from the gallbladder fossa consistent with cholelithiasis. There is no sonographic Rubio sign. The common bile duct is dilated, measuring 9 mm. Kidneys: The right kidney measures 10.6 cm in length. The left kidney measures 10.1 cm in length and demonstrates a 2.4 cm cyst in the interpolar region. The kidneys are otherwise unremarkable, without evidence of solid masses, hydronephrosis, or calculi. Pancreas: The pancreatic head, neck, and body are unremarkable. The pancreatic tail is obscured by bowel gas. Spleen: The spleen is normal in size and contour, measuring 9.8 cm in length. Abdominal aorta and inferior vena cava: The visualized portions of the abdominal aorta and inferior vena cava are normal in caliber. There is no free fluid in the abdomen. US/US abdomen complete IMPRESSION: 1. Hepatic steatosis. 2. Cholelithiasis. Mild dilatation of the common bile duct. If there is clinical concern for choledocholithiasis, MRCP could be performed. Electronically signed by: Dae Arroyo MD 10/21/2025 09:31 [facility]
== END 2025-10-21 08:41 | disposition home or self-care (01) ==
LOC: HO.US 08:40
PROVIDERS: PCP Internal Medicine; Visit Provider Internal Medicine
DX: K80.20 Calculus of gallbladder without cholecystitis without obstruction (principal)
CPT/HCPCS: 76700

== ENCOUNTER → 2025-10-21 08:42 | Outpatient (BNV) | payer MEDICARE, MEDICAID, SELFPAY | PROVIDERS: PCP Internal Medicine; Visit Provider Radiology Diagnostic Radiology | DX: K80.20 Calculus of gallbladder without cholecystitis without obstruction (principal); K76.0 Fatty (change of) liver, not elsewhere classified; K83.8 Other specified diseases of biliary tract | CPT/HCPCS: 76700 ==

== ENCOUNTER 2025-10-25 16:44 | Outpatient (AMB) | payer MEDICARE, SELFPAY ==
--- OUTSIDE RECORDS SUMMARY | 2025-06-29 06:10 | XMS_ITS ---
Author Organization [facility] Address [address] [place] [id number] Care Team Providers Care Medical Logistics Specialist Name Role Phone Keke Coe Primary Care Provider Unavailab darcie Gray Jr, Cristian Unavailable REASON FOR VISIT gerd,abn ugi series Encounters Encounter Location Date Provider Diagnosis [facility] [address] [place] [phone] 06/29/2025 Cristian Gray Jr Plan Of Treatment No Information Progress Notes * ROSALINDA LOVEDOB: [birth year] (75 yo F)Acc No.[id number]:06/29/2025 EGD/MAC Patient: ROSALINDA PETTIT Provider: Fidel Gray MD :1950 A ge:74 Y S ex:Female Date:06/29/2025 Address:[address] [place], [place] [phone] Pcp:Keke Ivy Subjective: * Chief Complaints: * G erd,abn ugi series Billing Information: * Procedure Codes: * The named appointment provid er may or may not be the originator of this progress note, and it is not deemed complete until electronically signed by the appointment provider. Sign off status: Pending * Provider: Fidel Gray MD Date: 0 06/29/2025 Generated for Printi ng/Faxing/eTransmitting on: 1 12/26/2024 10:39 PM EST
--- NOTE | 2025-10-25 16:55 | MHC.PC.OV ---
Vital Signs 10/25/25 16:56 Height 5 ft Weight 120 lb 4 oz BMI 23.5 BP 170/90 H Blood Pressure Location Lt brachial Position Sitting Pulse 79 Pulse Source Pulse Oximeter Pulse Oximetry (%) 99 Oxygen Delivery Method Room Air Intake Visit Reasons: dm Nps Required: No Accompanied by: Self / Same As Patient Allergies Penicillins (PENICILLINS) Allergy (Intermediate, Verified 10/25/25 17:08) ITCHY HIVES levothyroxine Adverse Reaction (Intermediate, Verified 10/25/25 17:08) dizziness, weakness Tussin (?) Adverse Reaction (Intermediate, Uncoded 10/25/25 17:08) rash,urticaria Medication List - Last Reconciled 10/25/25 by Keke Ivy MD amlodipine 2.5 mg PO DAILY 90 days blood sugar diagnostic (FreeStyle Lite Strips) Use 1 test strip once a day blood sugar diagnostic (FreeStyle Lite Strips) Use 1 test strip once a day calcium carbonate 600 mg PO BID 90 days cholecalciferol (vitamin D3) 25 mcg PO DAILY 30 days cromolyn 4% 1 drp ophthalmic (eye) QID 30 days diclofenac sodium 1% 2 grams topical QID PRN 30 days famotidine 40 mg PO BEDTIME 90 days fluoxetine 20 mg PO DAILY 90 days fluticasone propionate 0.05% 1 appl topical DAILY 30 days ketotifen fumarate 0.025%(0.035%) (Zaditor) 1 drp ophthalmic (eye) BID 30 days levocetirizine 5 mg PO BID PRN 90 days levothyroxine (Synthroid) 75 mcg PO DAILY 90 days metformin 850 mg PO BID 90 days montelukast 10 mg PO BEDTIME 90 days pantoprazole 40 mg PO DAILY 90 days pravastatin 40 mg PO BEDTIME 90 days trazodone 100 mg PO BEDTIME 90 days Tobacco use date assessed: 10/25/25 Fall risk assessment: No Falls in past year Last assessed Fall Risk: 10/25/25 Dental Screening Dental Screen Date: 10/25/25 Did you have a dental visit in the last 12 months?: Yes Did you have a dental problem in the last 6 months where you did not have access to dental care?: No Was dental information given to patient?: Patient has dentist HPI HPI Comments History of Present Illness Details The patient is a 75-year-old female presenting for a follow-up visit for management of her chronic medical conditions, including hypertension, diabetes, hypothyroidism, and high cholesterol. She has a history of allergies and reports stopping an allergy medication because it caused excessive dry eyes. She has not been taking her blood pressure medication, amlodipine 2.5 mg. Regarding her ocular health, she is followed by an car construction superintendent for glaucoma and has been told a nerve in her eye is thin. Surgical intervention was discussed but declined due to the risk of vision loss. The patient reports a history of nasal irritation and dryness, for which she has used lotion. She has allergies to penicillin, which causes a rash. Her thyroid medication was levothyroxine 75 mcg. For diabetes, she takes metformin 850 mg twice daily. She reports issues with heartburn. She takes fluoxetine 20 mg for depression and anxiety. For sleep, she takes a quarter of a 100 mg trazodone tablet, which allows her to sleep for 2-3 hours. Recent lab work shows her hemoglobin A1c is 5.6%, which is stable. Her cholesterol levels are excellent, with a total cholesterol of 161 and LDL of 71. Kidney and liver function are normal. Her vitamin B12 and vitamin D levels are normal. An abdominal ultrasound revealed gallstones. She has significant dental issues, including pain and jawbone deterioration, which makes it difficult to wear dentures and chew food. She has used Anbesol and Fixodent for her gums. [facility] Medical History (Updated 10/25/25 @ 17:40 by Keke Ivy MD) Dry eyes due to decreased tear production Seasonal allergic rhinitis Acid reflux Snoring Mild recurrent major depression Thyroid nodule Subclinical hypothyroidism Elevated TSH Diabetes mellitus Insomnia Depression Pure hypercholesterolemia Hypovitaminosis D Surgical History History of colonoscopy History of removal of cyst History of left breast biopsy History of hemorrhoidectomy Family History Father Myocardial infarction Mother No problems noted. Family/Other FH: mental illness Mental health disorder Social History Housing: House Alcohol intake: never Patient Tobacco Use Status: Never used Tobacco Tobacco use type: Cigarette e-Cigarette/Vaping Use: Never Used Second Hand Smoke Exposure: No service: No Current occupational status: unemployed Cognitive needs: No Hearing needs: No Vision needs: No Questionnaire PHQ-9 Over the last 2 weeks, how often have you been bothered by any of the following problems? 1. Little interest or pleasure in doing things: not at all 2. Feeling down, depressed, or hopeless: several days 3. Trouble falling or staying asleep, or sleeping too much: more than half the days 4. Feeling tired or having little energy: more than half the days 5. Poor appetite or overeating: not at all 6. Feeling bad about yourself - or that you are a failure or have let yourself or your family down: several days 7. Trouble concentrating on things, such as reading the newspaper or watching television: not at all 8. Moving or speaking so slowly that other people could have noticed. Or the opposite - being so fidgety or restless that you have been moving around a lot more than usual: not at all 9. Thoughts that you would be better off or of hurting yourself in some way: several days Total score: 7 Depression Screening Interpretation: Positive Depression Screening Follow-up: Existing condition and Follow-up Visit Requested Depression Screening Done: Yes 53822 - PHQ-9 Billing: Yes Source: Developed by Drs. Dae Forman, Rin Mallory, Anuj Macdonald and colleagues, with an educational andrzej from [employer]. Thrive Questionnaire Date Thrive assessed: 10/25/25 I am a: Parent/Caregiver What is your living situation today?: I have a steady place to live Within the past 12 months, did the food you bought not last and you didn't have the money to get more?: I choose not to answer this question Within the past 12 months, did you worry whether your food would run out before you got money to buy more?: I choose not to answer this question Do you have trouble paying for medicines?: No Do you have trouble getting transportation to medical appointments?: No Do you have trouble paying your heating and electricity bill?: No Do you have trouble taking care of your child, family member or friend?: No Do you have trouble with day-to-day activities such as bathing, preparing meals, shopping, managing finances, etc.?: No Are you currently unemployed and looking for a job?: No Are you interested in more education?: No Please select the resources that you would like help with: None Currently or been in a relationship where the following occur: No concerns reported THRIVE Score: 0 AUDIT C Alcohol Use Questionnaire (AUDIT-C) 1. How often do you have a drink containing alcohol?: Never 3. How often do you have six or more drinks on one occasion?: Never Total Score: 0 Score Reviewed/Action Taken: No CARRIE-7 AMB Questionnaire CARRIE-7 Date CARRIE - 7 assessed: 10/25/25 Feeling nervous, anxious, or on edge: 1 = Several days Not being able to stop or control worryin = Several days Worrying too much about different things: 1 = Several days Trouble relaxin = Several days Being so restless that it is hard to sit still: 0 = Not at all Becoming easily annoyed or irritable: 0 = Not at all Feeling afraid as if something awful might happen: 0 = Not at all Total CARRIE-7 score (0-4 normal; 5-9 mild; 10-14 moderate; 15-21 severe): 4 Source: Developed by Drs. Dae Forman, Rin Mallory, Anuj Macdonald and colleagues, with an educational adnrzej from [employer]. CARRIE-7 Assessment Billing CARRIE-7 Assessment Tool: CARRIE-7 Assessment 00761 Review of Systems Const All systems reviewed & are unremarkable except as noted in HPI and below Card Denies chest pain at rest, Denies chest pain with activity, Denies edema, Denies irregular heart rhythm, Denies claudication, Denies dyspnea, Denies dyspnea on exertion, Denies orthopnea, Denies paroxysmal nocturnal dyspnea and Denies slow heart rate Resp Denies cough, Denies dyspnea and Denies dyspnea on exertion GI Denies abdominal pain, Denies change in bowel habits, Denies excessive flatus, Denies nausea and Denies vomiting Neuro Denies lack of coordination Physical exam (Primary Care) Vital Signs: Last Vital Signs Pulse 79 10/25/25 16:56 BP 170/90 H 10/25/25 16:56 Pulse Ox 99 10/25/25 16:56 Oxygen Delivery Method Room Air 10/25/25 16:56 BMI result Body Mass Index 23.5 Tobacco/Smoking Status: Tobacco use Status Tobacco use date assessed 10/25/25 10/25/25 16:58 Patient Tobacco Use Status Never used Tobacco 10/25/25 16:56 Tobacco use type Cigarette 10/25/25 16:56 e-Cigarette/Vaping Use Never Used 10/25/25 16:56 PHQ-9: PHQ-9 Score PHQ-9: Total score 7 10/25/25 17:11 Depression Screening Interpretation: Positive Depression Screening Follow-up: Existing condition and Follow-up Visit Requested Thrive Assessment: Date of Thrive Assessment Date Thrive assessed 10/25/25 10/25/25 16:58 Currently or been in a relationship where the following occur: No concerns reported Resp Effort & Inspection: normal respiratory effort Auscultation: clear to auscultation bilaterally Cardio Jugular venous distension: no JVD Rate: regular rate Rhythm: regular rhythm Heart sounds: S1 normal heart sound present and S2 normal heart sound present Extrem General: Yes full ROM Coding Level of Care Code Add On Preventative Visit Only Diagnoses Type 2 diabetes mellitus with hyperglycemia, without long-term current use of insulin E11.65 Diabetes mellitus type: type 2 Diabetes mellitus half-way insulin use: without termite exterminator use Diabetes mellitus complication status: with hyperglycemia Essential hypertension I10 Pure hypercholesterolemia E78.00 Mild recurrent major depression F33.0 Acquired hypothyroidism E03.9 Hypothyroidism type: acquired Additional Codes CARRIE-7 Assessment Billing - CARRIE-7 Assessment Tool: CARRIE-7 Assessment 47026 ([id number]) PHQ-9 - 33895 - PHQ-9 Billing: Yes ([id number]) Time Spent (min) 23 Assessment & Plan Assessment & Plan (1) Diabetes mellitus: Code(s): E11.9 - Type 2 diabetes mellitus without complications Category: Medical Qualifiers: Diabetes mellitus type: type 2 Diabetes mellitus half-way insulin use: without termite exterminator use Diabetes mellitus complication status: with hyperglycemia Qualified Code(s): E11.65 - Type 2 diabetes mellitus with hyperglycemia (2) Essential hypertension: Code(s): I10 - Essential (primary) hypertension Category: Medical (3) Pure hypercholesterolemia: Code(s): E78.00 - Pure hypercholesterolemia, unspecified Category: Medical (4) Mild recurrent major depression: Code(s): F33.0 - Major depressive disorder, recurrent, mild Category: Medical (5) Hypothyroid: Code(s): E03.9 - Hypothyroidism, unspecified Category: Medical Qualifiers: Hypothyroidism type: acquired Qualified Code(s): E03.9 - Hypothyroidism, unspecified Plan Plan 1. Hypertension The patient's blood pressure is elevated today, and she reports not taking her blood pressure medication. A prescription for amlodipine 2.5 mg will be sent to her pharmacy. 2. Hypothyroidism The patient's recent lab work showed a low TSH of 0.21, indicating her thyroid is over-suppressed. Her levothyroxine dose will be decreased from 75 mcg to 50 mcg. She is to stop the old dose and start the new one immediately. Repeat non-fasting thyroid labs are ordered for 6 to 8 weeks after starting the new dose to assess efficacy. 3. Cholelithiasis An abdominal ultrasound revealed gallstones. The radiologist recommended further imaging and a surgical evaluation. An order for the recommended imaging will be placed, and a referral to surgery will be made for evaluation. The patient was informed that surgery is only necessary if the gallstones are causing symptoms. 4. Allergies And Rhinitis The patient reports nasal irritation and dry eyes, which were exacerbated by a previous allergy pill. The oral allergy pills will be discontinued. A new nasal spray will be prescribed to replace oxymetazoline, which can cause rhinitis medicamentosa. 5. Dysuria The patient reported a new onset of burning with urination. A urinalysis is ordered to check for a urinary tract infection, and she can go to the hospital lab to provide a sample. 6. Dental And Jaw Pain The patient has significant dental pain, difficulty chewing, and issues with her dentures due to a deteriorating jaw bone. Dwvf-pye-mhumaug numbing agents like Orajel or Ambeseol were suggested to help manage gum pain before eating. Nutritional supplements were discussed, but it was noted they may not be covered by insurance as she is not malnourished. 7. Medication Management Refills for metformin, fluoxetine, trazodone, and calcium with vitamin D will be sent to the pharmacy. Orders: Orders MRCP Today K80.20 - Calculus of gallbladder without cholecystitis without obstruction Microalbumin, Random (w Creat) 4 Months R80.9 - Proteinuria, unspecified Thyroid Stimulating Hormone 4 Months E03.9 - Hypothyroidism, unspecified AMB Hemoglobin A1c Today Z13.9 - Encounter for screening, unspecified UA CC w/rflx Micro + Cult Today R30.0 - Dysuria Thyroid Stimulating Hormone 6 Weeks E03.9 - Hypothyroidism, unspecified Lipid Panel 4 Months E78.5 - Hyperlipidemia, unspecified Comprehensive [place]. Panel Fast 4 Months E11.65 - Type 2 diabetes mellitus with hyperglycemia Referrals General Surgery Referral K80.20 - Calculus of gallbladder without cholecystitis without obstruction Medications: New levothyroxine (Synthroid) 50 mcg PO DAILY 90 tabs 0RF 90 days fluconazole 150 mg PO Q3D 2 tabs 0RF 2 doses Refilled amlodipine 2.5 mg PO DAILY 90 tabs 1RF 90 days cholecalciferol (vitamin D3) 25 mcg PO DAILY 30 caps 6RF 30 days fluticasone propionate 0.05% 1 appl topical DAILY 30 grams 1RF 30 days pantoprazole 40 mg PO DAILY 90 tabs 1RF 90 days fluoxetine 20 mg PO DAILY 90 caps 1RF 90 days metformin 850 mg PO BID 180 tabs 2RF 90 days E11.65 - Type 2 diabetes mellitus with hyperglycemia pravastatin 40 mg PO BEDTIME 90 tabs 1RF 90 days E78.00 - Pure hypercholesterolemia, unspecified trazodone 100 mg PO BEDTIME 90 tabs 2RF 90 days calcium carbonate 600 mg PO BID 180 tabs 3RF 90 days E11.65 - Type 2 diabetes mellitus with hyperglycemia Discontinued ketotifen fumarate 0.025%(0.035%) (Zaditor) administer at least 8 hours apart Discontinued Reason: Patient Completed Course 1 drp ophthalmic (eye) BID 30 days 5 mL 0RF H04.129 - Dry eye syndrome of unspecified lacrimal gland levothyroxine (Synthroid) Discontinued Reason: Patient Completed Course 75 mcg PO DAILY 90 days 90 tabs 1RF famotidine Discontinued Reason: Patient Completed Course 40 mg PO BEDTIME 90 days 90 tabs 1RF levocetirizine Discontinued Reason: Patient Completed Course 5 mg PO BID 90 days PRN 180 tabs 0RF allergy symptoms montelukast Discontinued Reason: Patient Completed Course 10 mg PO BEDTIME 90 days 90 tabs 0RF J30.9 - Allergic rhinitis, unspecified
[2025-10-25 16:56] VITALS: BP 170/90; PULSE 79; O2SAT 99; BMI 23.5
--- OUTSIDE RECORDS SUMMARY | 2025-10-25 22:40 | XMS_ITS | Patient Health Record ---
Author Organization [facility] Address [address] [place] [address] Care Team Providers Care Economic Specialist Name Role Phone Keke Coe Primary Care Provider UnavailCristian Duncan Jr Unavailable Allergies Allergen (clinical drug ingredient) Drug/Non Drug Allergy documented on EMR Reaction Allergy Type Onset Date Status Penicillin Unknown Drug Allergy Active Results Component Value Reference Range Flag Notes Glucose, Whole Blood Reviewed date:06/30/2025 08:15:32 AM Interpretation: Performing Lab:[facility], [address] [place] [phone] Notes/Report: Glucose, Whole Blood 113 60-115 mg/dL N [facility] #: [id number] Pathology Reviewed date:07/06/2025 04:07:38 PM Interpretation: Performing Lab:[facility], [address] [place] [phone] Notes/Report: Reason For Referral No Information Medications Medication SIG (Take, Route, Frequency, Duration) Notes Start Date End Date Status Pantoprazole Sodium 40 MG Packet 1 packet 1/2 to 1 hour before morning meal mixed with apple juice or applesauce Orally Once a day Active traZODone HCl 100 MG Tablet 1 tablet at bedtime Orally Once a day Active FLUoxetine HCl 20 MG Capsule 1 capsule in the morning Orally Once a day Active metFORMIN HCl 500 MG Tablet 1 tablet with meals Orally Twice a day Active Pravastatin Sodium 20 MG Tablet 1 tablet Orally Once a day Not-Taking/PRN risperiDONE 4 MG Tablet 1 tablet Orally Once a day Not-Taking/PRN Calcium 500 MG Tablet 1 tablet with meal s Orally Once a day Not-Taking/PRN Colyte with Flavor Packs 240 GM Solution Reconstituted As directed Orally Over the specified time.; Duration: 1 day(s) Not-Taking/PRN Immunizations Vaccine Route Administration Date Status Comme nts Flu vaccine no Preserv 3 and > Unknown 08/23/2015 Admin istered Flu vaccine no Preserv 3 and > Unknown 08/11/2017 Admin istered Social History Social History Additional Details Category Social Info Options Details Miscellaneous: Marital status: Occupation: retired Problems Problem Type SNOMED Code ICD Code Onset Dates Problem Status W/U Status Risk Notes Problem Colon cancer screening (996558297) Colon cancer screening (Z12.11) Active confirmed Problem Gastrointestinal tract problem (812016862) Abn findings-GI tract (R93.3) Active confirmed Problem Gastroesophageal reflux disease (135051487) GERD (gastroesophagea l reflux disease) (K21.9) Active confirmed Problem Long-term current use of drug therapy (421588596) Long-term current use of high risk medication other than anticoagulant (Z79.899) Active confirmed Problem Abdominal bloating (finding) (603188509) Gas bloat syndrome (K92.89) Active confirmed Vital Signs Heart Rate 64 /min 05/27/2025 Blood pressure diastolic 01 mm Hg 05/27/2025 Height 60 in 05/27/2025 Blood pressure systolic 001 mm Hg 05/27/2025 Weight 120.4 lbs 05/27/2025 BMI 23.51 kg/m2 05/27/2025 Encounters Encounter Location Date Provider Diagnosis [facility] [address] [place] [id number] 06/29/2025 Cristian Gray Jr [facility] [address] [place] [phone] 05/27/2025 Cristian Gray Jr GERD (gastroesophageal reflux disease) K21.9 and Abn findings-GI tract R93.3 [facility] [address] [place] [phone] 07/06/2025 Cristian Gray Jr Assessments Encounter Date [...] Insured Coverage Start Date Coverage End Date [facility] [address] [place], [place] [id number] PCP ROSALINDA LOVE Self - patient is the insured 4 [place] [address] [place] [address] [id number] ROSALINDA MCCALLUM Self - patient is the insured 4 Medical (General) History Medical History History ICD Code diabetes mellitus depression Hypertension headaches Hypothyroidism Colonoscopy, 2018, normal, 10-year follo w-up Surgical History Surgery Date(Month/Year) breast biopsy Rectal fistula repair
== END 2025-10-25 17:41 | disposition home or self-care (01) ==
LOC: HO.HMCH 16:44
PROVIDERS: PCP Internal Medicine; Visit Provider Internal Medicine
DX: E11.65 Type 2 diabetes mellitus with hyperglycemia (principal); I10 Essential (primary) hypertension; E78.00 Pure hypercholesterolemia, unspecified; F33.0 Major depressive disorder, recurrent, mild; E03.9 Hypothyroidism, unspecified

== ENCOUNTER → 2025-10-25 16:44 | Outpatient (BNVA) | payer MEDICARE, SELFPAY | PROVIDERS: PCP Internal Medicine; Visit Provider Internal Medicine | DX: E11.65 Type 2 diabetes mellitus with hyperglycemia (principal); I10 Essential (primary) hypertension; E78.00 Pure hypercholesterolemia, unspecified; F33.0 Major depressive disorder, recurrent, mild; E03.9 Hypothyroidism, unspecified | CPT/HCPCS: 96127; 99212 ==

== ENCOUNTER 2025-10-26 09:38 | Outpatient (REF) | payer MEDICARE, SELFPAY ==
--- OUTSIDE RECORDS SUMMARY | 2025-06-29 06:10 | XMS_ITS ---
Author Organization [facility] Address [address] [place] [phone] Care Team Providers Care Railway Switch Operator Name Role Phone Keke Coe Primary Care Provider Unavailab darcie Gray Jr, Cristian Unavailable REASON FOR VISIT gerd,abn ugi series Encounters Encounter Location Date Provider Diagnosis [facility] [place] [address] [place] [phone] 06/29/2025 Cristian Gray Jr Plan Of Treatment No Information Progress Notes * ROSALINDA LOVEDOB: [birth year] (75 yo F)Acc No.[id number]:06/29/2025 EGD/MAC Patient: ROSALINDA PETTIT Provider: Fidel Gray MD :1950 A ge:74 Y S ex:Female Date:06/29/2025 Address:[address] [place], [place] [phone] Pcp:Keke Ivy Subjective: * Chief Complaints: * [...] 06/29/2025 Generated for Printi ng/Faxing/eTransmitting on: 1 12/27/2024 11:25 AM EST
[2025-10-26 10:43] LABS: Appearance Urine Clear; Glucose Urine UA Negative (Negative); PH 6.5 (5.0-9.0); Specific Gravity - Urine 1.010 (1.005-1.025); UMIC TRIGGER UACC YES
[2025-10-26 11:00] LABS: UACC Culture Trigger YES
--- OUTSIDE RECORDS SUMMARY | 2025-10-26 11:26 | XMS_ITS | Patient Health Record ---
Author Organization [facility] Address [address] [place] [address] Care Team Providers Care Patient Support Associate Name Role Phone Keke Coe Primary Care Provider UnavailCristian Duncan Jr Unavailable [phone] Allergies Allergen (clinical drug ingredient) Drug/Non Drug Allergy documented on EMR Reaction Allergy Type Onset Date Status Penicillin Unknown Drug Allergy Active Results Component Value Reference Range Flag Notes Glucose, Whole Blood Reviewed date:06/30/2025 08:15:32 AM Interpretation: Performing Lab:[facility], [address] [place] [phone] Notes/Report: Glucose, Whole Blood 113 60-115 mg/dL N [facility] #: [id number] Pathology Reviewed date:07/06/2025 04:07:38 PM Interpretation: Performing Lab:[facility], [address] [place] [phone] Notes/Report: Reason For Referral No Information Medications [...] Status Risk Notes Problem Colon cancer screening (198493720) Colon cancer screening (Z12.11) Active confirmed Problem Gastrointestinal tract problem (788268954) Abn findings-GI tract (R93.3) Active confirmed Problem Gastroesophageal reflux disease (024403235) GERD (gastroesophagea l reflux disease) (K21.9) Active confirmed Problem Long-term current use of drug therapy (257047144) Long-term current use of high risk medication other than anticoagulant (Z79.899) Active confirmed Problem Abdominal bloating (finding) (444198032) Gas bloat syndrome (K92.89) Active confirmed Vital Signs Heart Rate 64 /min 05/27/2025 Blood pressure diastolic 01 mm Hg 05/27/2025 Height 60 in 05/27/2025 Blood pressure systolic 001 mm Hg 05/27/2025 Weight 120.4 lbs 05/27/2025 BMI 23.51 kg/m2 05/27/2025 Encounters Encounter Location Date Provider Diagnosis [facility] [address] [place] [id number] 06/29/2025 Cristian Gray Jr [facility] [address] [place] [phone] 05/27/2025 Cristian Gray Jr GERD (gastroesophageal reflux disease) K21.9 and Abn findings-GI tract R93.3 [facility] [address] [place] [phone] 07/06/2025 Cristian Gray Jr Assessments Encounter Date [...] Insured Coverage Start Date Coverage End Date [facility] [address] [place], [place] [id number] PCP ROSALINDA LOVE Self - patient is the insured 4 [place] [address] [place] [address] [id number] ROSALINDA MCCALLUM Self - patient is the insured 4 Medical (General) History Medical History History ICD Code diabetes mellitus depression Hypertension headaches Hypothyroidism Colonoscopy, 2018, normal, 10-year follo w-up Surgical History Surgery Date(Month/Year) breast biopsy Rectal fistula repair
== END 2025-10-26 09:39 | disposition home or self-care (01) ==
LOC: HO.LAB 09:38
PROVIDERS: PCP Internal Medicine; Visit Provider Internal Medicine
DX: R30.0 Dysuria (principal)
CPT/HCPCS: 81001; 87086

== ENCOUNTER 2025-11-09 08:25 | Outpatient (REF) | payer MEDICARE, SELFPAY ==
--- OUTSIDE RECORDS SUMMARY | 2025-06-29 06:10 | XMS_ITS ---
Author Organization [facility] Address [address] [place] [phone] Care Team Providers Care Hat Sprayer Name Role Phone Keke Coe Primary Care Provider Unavailab darcie Gray Jr, Cristian Unavailable [phone] REASON FOR VISIT gerd,abn ugi series Encounters Encounter Location Date Provider Diagnosis [facility] [place] [address] [place] [phone] 06/29/2025 Cristian Gray Jr Plan Of Treatment No Information Progress Notes * ROSALINDA LOVEDOB: [birth year] (75 yo F)Acc No.[id number]:06/29/2025 EGD/MAC Patient: ROSALINDA PETTIT Provider: Fidel Gray MD :1950 A ge:74 Y S ex:Female Date:06/29/2025 Address:[address] [place], [place] [phone] Pcp:Keke Ivy Subjective: * Chief Complaints: * [...] 06/29/2025 Generated for Printi ng/Faxing/eTransmitting on: 1 10:02 AM EST
--- NOTE | ~2025-11-09 | MM_ITS ---
EXAMINATION: DXA BONE DENSITY AXIAL HISTORY: Z78.0 - Asymptomatic menopausal state TECHNIQUE: reQall Dual energy absorptiometry (DEXA) of the lumbar spine, total left hip, and femoral neck was performed. COMPARISON: Comparison is made with the prior examination dated 10/30/2023. FINDINGS: The bone mineral density of the lumbar spine is 0.863 g/cm2, corresponding to a T-score of -2.6, and a Z-score of -0.5. This is indicative of osteoporosis. This represents a BMD change of 8.8% compared to the prior exam. This is statistically significant. The bone mineral density of the left total hip is 0.927 g/cm2, corresponding to a T-score of -0.6, and a Z-score of 1.4. This is indicative of normal bone mineral density. This represents a BMD change of -5.1% compared to the prior exam. This is statistically significant. The bone mineral density of the left femoral neck is 0.770 g/cm2, corresponding to a T-score of -1.9, and a Z-score of 0.2. This is indicative of osteopenia. This represents a BMD change of -0.6% compared to the prior exam. FRACTURE RISK: The FRAX index suggests a ten year probability of major osteoporotic fracture of 7.0%, and of hip fracture 1.8%. MM/XR DEXA axial skeleton IMPRESSION: Based on bone mineral density, and according to World Health Organization (WHO) criteria, the diagnosis is consistent with osteoporosis. Statistically, 68% of repeat scans fall within 1 SD (+/- 0.010 g/cm2 for AP spine L1-L4) and 1 SD (+/- 0.012 g/cm2 for femur total) FRAX is a trademark of the [employer]'s [place] for Metabolic Bone Disease, a World Health Organization (WHO) Collaborating Center. Electronically signed by: aDe Arroyo MD 11/09/2025 09:10 AM [facility]
--- OUTSIDE RECORDS SUMMARY | 2025-11-09 10:03 | XMS_ITS | Patient Health Record ---
Author Organization [facility] Address [address] [place] [address] Care Team Providers Care Blow Pit Operator Name Role Phone Keke Coe Primary Care Provider UnavailCristian Duncan Jr Unavailable [phone] Allergies Allergen (clinical drug ingredient) Drug/Non Drug Allergy documented on EMR Reaction Allergy Type Onset Date Status Penicillin Unknown Drug Allergy Active Results Component Value Reference Range Flag Notes Glucose, Whole Blood Reviewed date:06/30/2025 08:15:32 AM Interpretation: Performing Lab:[facility], [address] [place] [phone] Notes/Report: Glucose, Whole Blood 113 60-115 mg/dL N [facility] #: [id number] Pathology Reviewed date:07/06/2025 04:07:38 PM Interpretation: Performing Lab:[facility], [address] [place] [phone] Notes/Report: Reason For Referral No Information Medications [...] Status Risk Notes Problem Colon cancer screening (567968230) Colon cancer screening (Z12.11) Active confirmed Problem Gastrointestinal tract problem (500726221) Abn findings-GI tract (R93.3) Active confirmed Problem Gastroesophageal reflux disease (790507775) GERD (gastroesophagea l reflux disease) (K21.9) Active confirmed Problem Long-term current use of drug therapy (288630019) Long-term current use of high risk medication other than anticoagulant (Z79.899) Active confirmed Problem Abdominal bloating (finding) (157050903) Gas bloat syndrome (K92.89) Active confirmed Vital Signs Heart Rate 64 /min 05/27/2025 Blood pressure diastolic 01 mm Hg 05/27/2025 Height 60 in 05/27/2025 Blood pressure systolic 001 mm Hg 05/27/2025 Weight 120.4 lbs 05/27/2025 BMI 23.51 kg/m2 05/27/2025 Encounters Encounter Location Date Provider Diagnosis [facility] [address] [place] [id number] 06/29/2025 Cristian Gray Jr [facility] [address] [place] [phone] 05/27/2025 Cristian Gray Jr GERD (gastroesophageal reflux disease) K21.9 and Abn findings-GI tract R93.3 [facility] [address] [place] [phone] 07/06/2025 Cristian Gray Jr Assessments Encounter Date [...] Insured Coverage Start Date Coverage End Date [facility] [address] [place], [place] [id number] PCP ROSALINDA LOVE Self - patient is the insured 4 [place] [address] [place] [address] [id number] ROSALINDA MCCALLUM Self - patient is the insured 4 Medical (General) History Medical History History ICD Code diabetes mellitus depression Hypertension headaches Hypothyroidism Colonoscopy, 2018, normal, 10-year follo w-up Surgical History Surgery Date(Month/Year) breast biopsy Rectal fistula repair
== END 2025-11-09 08:26 | disposition home or self-care (01) ==
LOC: HO.MAMMO 08:25
PROVIDERS: PCP Internal Medicine; Visit Provider Internal Medicine
DX: Z78.0 Asymptomatic menopausal state (principal)
CPT/HCPCS: 77080

== ENCOUNTER → 2025-11-09 08:45 | Outpatient (BNV) | payer MEDICARE, SELFPAY | PROVIDERS: PCP Internal Medicine; Visit Provider Radiology Diagnostic Radiology | DX: E28.39 Other primary ovarian failure (principal) | CPT/HCPCS: 77080 ==

== ENCOUNTER 2025-11-10 08:23 | Outpatient (AMB) | payer MEDICARE, MEDICAID, SELFPAY ==
--- OUTSIDE RECORDS SUMMARY | 2025-06-29 06:10 | XMS_ITS ---
Author Organization [facility] Address [address] [place] [phone] Care Team Providers Care Boss Miner Name Role Phone Keke Coe Primary Care Provider Unavailab darcie Gray Jr, Cristian Unavailable REASON FOR VISIT gerd,abn ugi series Encounters Encounter Location Date Provider Diagnosis [facility] [place] Out[place] [address] [place] [id number] 06/29/2025 Cristian Gray Jr Plan Of Treatment No Information Progress Notes * ROSALINDA LOVEDOB: [birth year] (75 yo F)Acc No.[id number]:06/29/2025 EGD/MAC Patient: ROSALINDA PETTIT Provider: Fidel Gray MD :1950 A ge:74 Y S ex:Female Date:06/29/2025 Address:[address] [place], [place] [phone] Pcp:Keke Ivy Subjective: * Chief Complaints: * [...] 06/29/2025 Generated for Printi ng/Faxing/eTransmitting on: 1 08:28 AM EST
[2025-11-10 08:25] VITALS: BP 161/98; PULSE 80; BMI 23.6
--- NOTE | 2025-11-10 08:25 | A.OFFVIS_ITS ---
Vital Signs 11/10/25 08:25 Height 5 ft Weight 121 lb BMI 23.6 BP 161/98 H Blood Pressure Location Rt brachial Position Sitting Pulse 80 Intake Visit Reasons: K80.20 - Calculus of gallbladder without cholecyst Intake Note: Patient referred by PCP Dr. Yaya Ivy for assessment of Calculus of gallbladder without cholecystitis and obstruction. Patient c/o: RUQ pain that spreads to back. Vomiting episode last week. Reports normal BM. Imaging: US Abdomen~ 10-21-2025 Final Armature Tester Required: No Accompanied by: emerald Guajardo Allergies Penicillins (PENICILLINS) Allergy (Intermediate, Verified 11/10/25 08:31) ITCHY HIVES levothyroxine Adverse Reaction (Intermediate, Verified 11/10/25 08:31) dizziness, weakness Tussin (?) Adverse Reaction (Intermediate, Uncoded 11/10/25 08:31) rash,urticaria Medication List - Last Reconciled 11/10/25 by Luis Groves MD amlodipine 2.5 mg PO DAILY 90 days blood sugar diagnostic (FreeStyle Lite Strips) Use 1 test strip once a day blood sugar diagnostic (FreeStyle Lite Strips) Use 1 test strip once a day calcium carbonate 600 mg PO BID 90 days cholecalciferol (vitamin D3) 25 mcg PO DAILY 30 days cromolyn 4% 1 drp ophthalmic (eye) QID 30 days diclofenac sodium 1% 2 grams topical QID PRN 30 days fluconazole 150 mg PO Q3D 2 doses fluoxetine 20 mg PO DAILY 90 days fluticasone propionate 0.05% 1 appl topical DAILY 30 days levothyroxine (Synthroid) 50 mcg PO DAILY 90 days metformin 850 mg PO BID 90 days pantoprazole 40 mg PO DAILY 90 days pravastatin 40 mg PO BEDTIME 90 days trazodone 100 mg PO BEDTIME 90 days HPI Comments Details: Patient presents with her son. She reports longstanding history of postprandial right upper quadrant and epigastric abdominal pain accompanied with heartburn and reflux. She does take acid suppressive medications for her reflux but she reports it does not really help. She had a right upper quadrant ultrasound that was indicative of cholelithiasis and she desires cholecystectomy. [facility] Medical History Dry eyes due to decreased tear production Seasonal allergic rhinitis Acid reflux Snoring Mild recurrent major depression Thyroid nodule Subclinical hypothyroidism Elevated TSH Diabetes mellitus Insomnia Depression Pure hypercholesterolemia Hypovitaminosis D Surgical History History of colonoscopy History of removal of cyst History of left breast biopsy History of hemorrhoidectomy Family History Father Myocardial infarction Mother No problems noted. Family/Other FH: mental illness Mental health disorder Social History Housing: House Alcohol intake: never Patient Tobacco Use Status: Never used Tobacco Tobacco use type: Cigarette e-Cigarette/Vaping Use: Never Used Second Hand Smoke Exposure: No service: No Current occupational status: unemployed Cognitive needs: No Hearing needs: No Vision needs: No Review of Systems Const All systems reviewed & are unremarkable except as noted in HPI and below Physical Exam Vital Signs: Last Vital Signs Pulse 80 11/10/25 08:25 BP 161/98 H 11/10/25 08:25 BMI result Body Mass Index 23.6 Const General: cooperative, healthy appearing and comfortable HEENT Head: Yes normal to inspection, Yes normocephalic and Yes atraumatic Ears: hearing grossly normal bilaterally General nose exam: Normal external nose present Face and sinus: Yes normal facial exam Eyes Pupils: Equal, round and reactive pupils present EOM: EOMs intact bilaterally Neck Neck: Yes normal visual inspection Chest Chest palpation & inspection: normal inspection of the chest Resp Effort & Inspection: normal respiratory effort and able to speak in complete sentences Cardio Rate: regular rate Rhythm: regular rhythm GI Other: Soft nontender nondistended no evidence of hepatosplenomegaly. Patient locates the region of her discomfort in her epigastrium and right upper quadrant. No tenderness to exam. No scars or masses or hernias. Inspection: Yes normal to inspection Neuro Cranial nerves: Yes Equal, round and reactive pupils present Assessment & Plan Assessment & Plan (1) Cholelithiasis: Code(s): K80.20 - Calculus of gallbladder without cholecystitis without obstruction Category: Medical Qualifiers: Cholelithiasis location: gallbladder Cholecystitis presence: without cholecystitis Plan: I reviewed options with the patient. I told her I felt cholecystectomy was reasonable. I reviewed with her the nature of laparoscopic possible open cholecystectomy and also reviewed with her the risks associated with such an endeavor. These include but are not limited to the risk of bleeding the risks infection the risk of damage to surrounding structures the risks of the cystic duct stump leak the risk of retained common bile duct stones the risk of conversion to an open procedure the risks of chronic abdominal pain nursing of chronic nausea and vomiting and the risks of the surgery would not solve her current issues with discomfort and reflux are all reviewed with her in detail. We discussed the risks of stroke and heart attack and pulmonary embolism with any abdominal surgery. Patient indicated that she understood. She told me that she consider her options. She told me that she understood and accepted the risks of surgery and lastly indicated that she wished to proceed with operative intervention for her gallbladder issues. Coding Level of Care Code New Pt Level 4 (79235) Diagnoses Cholelithiasis K80.20 Cholelithiasis location: gallbladder Cholecystitis presence: without cholecystitis Time Spent (min) 45 Comment Record review patient visit and coordination of care time
--- OUTSIDE RECORDS SUMMARY | 2025-11-10 08:28 | XMS_ITS | Patient Health Record ---
Author Organization [facility] Address [address] [place] [address] Care Team Providers Care Methods Engineer Name Role Phone Keke Coe Primary Care Provider UnavailCristian Duncan Jr Unavailable Allergies Allergen (clinical drug ingredient) Drug/Non Drug Allergy documented on EMR Reaction Allergy Type Onset Date Status Penicillin Unknown Drug Allergy Active Results Component Value Reference Range Flag Notes Glucose, Whole Blood Reviewed date:06/30/2025 08:15:32 AM Interpretation: Performing Lab:[facility], [address] [place] [phone] Notes/Report: Glucose, Whole Blood 113 60-115 mg/dL N [facility] #: [id number] Pathology Reviewed date:07/06/2025 04:07:38 PM Interpretation: Performing Lab:[facility], [address] [place] [phone] Notes/Report: Reason For Referral No Information Medications [...] Status Risk Notes Problem Colon cancer screening (939081992) Colon cancer screening (Z12.11) Active confirmed Problem Gastrointestinal tract problem (781375402) Abn findings-GI tract (R93.3) Active confirmed Problem Gastroesophageal reflux disease (975118140) GERD (gastroesophagea l reflux disease) (K21.9) Active confirmed Problem Long-term current use of drug therapy (613476583) Long-term current use of high risk medication other than anticoagulant (Z79.899) Active confirmed Problem Abdominal bloating (finding) (511830974) Gas bloat syndrome (K92.89) Active confirmed Vital Signs Heart Rate 64 /min 05/27/2025 Blood pressure diastolic 01 mm Hg 05/27/2025 Height 60 in 05/27/2025 Blood pressure systolic 001 mm Hg 05/27/2025 Weight 120.4 lbs 05/27/2025 BMI 23.51 kg/m2 05/27/2025 Encounters Encounter Location Date Provider Diagnosis [facility] [address] [place] [id number] 06/29/[address] [facility] [address] [place] [phone] 05/27/2025 Cristian Gray Jr GERD (gastroesophageal reflux disease) K21.9 and Abn findings-GI tract R93.3 [facility] [address] [place] [phone] 07/06/2025 Cristian Gray Jr Assessments Encounter Date [...] Insured Coverage Start Date Coverage End Date [facility] [address] [place], [place] [id number] PCP ROSALINDA LOVE Self - patient is the insured 4 [place] [address] [place] [address] [id number] ROSALINDA MCCALLUM Self - patient is the insured 4 Medical (General) History Medical History History ICD Code diabetes mellitus depression Hypertension headaches Hypothyroidism Colonoscopy, 2018, normal, 10-year follo w-up Surgical History Surgery Date(Month/Year) breast biopsy Rectal fistula repair
== END 2025-11-10 08:50 | disposition home or self-care (01) ==
LOC: HO.HGS 08:23
PROVIDERS: PCP Internal Medicine; Visit Provider Surgery
DX: K80.20 Calculus of gallbladder without cholecystitis without obstruction (principal)
CPT/HCPCS: 99204

== ENCOUNTER → 2025-11-10 08:23 | Outpatient (BNVA) | payer MEDICARE, SELFPAY | PROVIDERS: PCP Internal Medicine; Visit Provider Surgery | DX: K80.20 Calculus of gallbladder without cholecystitis without obstruction (principal) | CPT/HCPCS: 99202 ==